=== PATIENT | female | born 1980 | race Caucasian/White ===

== ENCOUNTER 2016-04-04 08:49 | Emergency (ER) | payer MEDICAID ==
[2016-04-04] MEDS ORDERED: DEXAMETHASONE 10 MG/ML VIAL PO STA (09:27)
[2016-04-04] MEDS ORDERED: DEXAMETHASONE 10 MG/ML VIAL ONE (09:42)
[2016-04-04] MEDS ORDERED: CHERRY SYRUP 10 ML UDC PO ONE (09:43)
== END 2016-04-04 09:57 | disposition home or self-care (01) ==
DX: S76.312A Strain of muscle, fascia and tendon of the posterior muscle group at thigh level, left thigh, initial encounter (principal); X50.0XXA Overexertion from strenuous movement or load, initial encounter; Y93.E6 Activity, residential relocation; Y92.008 Other place in unspecified non-institutional (private) residence as the place of occurrence of the external cause; F17.200 Nicotine dependence, unspecified, uncomplicated; M54.31 Sciatica, right side; G89.29 Other chronic pain
CPT/HCPCS: 99283; A9270

== ENCOUNTER 2016-06-20 08:48 | Emergency (ER) | payer MEDICAID ==
[2016-06-20] MEDS ORDERED: CEPHALEXIN 250 MG CAPSULE PO STA (09:41)
[2016-06-20] MEDS ORDERED: PHENAZOPYRIDINE 100 MG TABLET PO STA (09:41)
[2016-06-20] MEDS ORDERED: CEPHALEXIN 250 MG CAPSULE PO ONE (09:52)
[2016-06-20] MEDS ORDERED: PHENAZOPYRIDINE 100 MG TABLET PO ONE (09:52)
== END 2016-06-20 10:25 | disposition home or self-care (01) ==
DX: N30.01 Acute cystitis with hematuria (principal); R03.0 Elevated blood-pressure reading, without diagnosis of hypertension; Z87.440 Personal history of urinary (tract) infections; F17.200 Nicotine dependence, unspecified, uncomplicated
CPT/HCPCS: 81001; 81025; 87077; 87086; 87181; 99283; A9270

== ENCOUNTER 2016-09-18 21:26 | Emergency (ER) | payer MEDICAID ==
[2016-09-18 22:00] LABS: BILIRUBIN,URINE NEGATIVE (NEGATIVE); PH,URINE 5.5 PH (5.0-7.5)
[2016-09-18 22:02] LABS: HCG UR QUAL NEGATIVE; UA w/ MICROSCOPIC CHARGE YES
[2016-09-18 22:09] LABS: UR CULTURE IF IND NOT INDICATED
--- NOTE | 2016-09-18 22:22 | ED Physician Documentation ---
PD HPI FEMALE - Stated complaint Stated Complaint: LT SIDE PAIN - Chief complaint Chief Complaint: General - History obtained from History obtained from: Patient - History of Present Illness Timing - onset: Enter time (15:30) Timing - duration: Hours Timing - details: Gradual onset, Constant, Waxing and waning Pain level max: 6 Associated symptoms: Abdominal pain (left flank pain radiating to back). No: Fever Similar symptoms before: Diagnosis (pyelonephritis) Recently seen: Not recently seen - Additional information Additional information: patient c/o left flank pain radiating to back, onset 3:30 PM, waxing and waning without apparent exacerbating or ameliorating factors. She feels this is similar to previous episodes of kidney infections. Review of Systems Constitutional: denies: Fever, Chills, Sweats Cardiac: reports: Reviewed and negative Respiratory: reports: Reviewed and negative GI: reports: Abdominal Pain (left flank). 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: Tubal ligation - Present Medications Home Medications: Ambulatory Orders Medication Instructions Recorded Confirmed Cephalexin [Keflex] 500 mg PO Q6H #28 capsule 06/20/16 Phenazopyridine [Pyridium] 100 mg PO Q8H PRN #9 tablet 06/20/16 Ciprofloxacin HCl [Cipro] 500 mg PO BID #13 tablet 09/18/16 - Allergies Allergies/Adverse Reactions: Allergies Allergy/AdvReac Type Severity Reaction Status Date / Time No Known Drug Allergies Allergy Verified 06/20/16 08:53 - Social History Does the pt smoke?: Yes Smoking Status: Current every day smoker Does the pt drink ETOH?: Yes Does the pt have substance abuse?: Yes Substance Use and Type: Marijuana - Immunizations Immunizations are current?: Yes PD ED PE NORMAL - Vitals Vital signs reviewed: Yes - General General: Alert and oriented X 3, Well developed/nourished, Other (appears uncomfortable) - Cardiac Cardiac: RRR, No murmur - Respiratory Respiratory: No respiratory distress, Clear bilaterally - Abdomen Abdomen: Soft, Non tender, Non distended - Back Back: Other (left CVA tenderness) - Derm Derm: Normal color, Warm and dry, No rash Results - Vitals Vitals: Vital Signs - 24 hr 09/18/16 09/18/16 21:30 22:56 Temperature 36.8 C Heart Rate 95 67 Respiratory 16 16 Rate Blood Pressure 152/101 H 116/82 H O2 Saturation 97 96 Oxygen O2 Source Room air - Labs Labs: Laboratory Tests 09/18/16 21:32 Urine Color YELLOW Urine Clarity HAZY Urine pH 5.5 Ur Specific [place] 1.020 Urine Protein NEGATIVE Urine Glucose (UA) NEGATIVE Urine Ketones NEGATIVE Urine Occult Blood SMALL H Urine Nitrite NEGATIVE Urine Bilirubin NEGATIVE Urine Urobilinogen 0.2 (NORMAL) Ur Leukocyte Esterase TRACE H Urine RBC 0-5 Urine WBC 4-5 Ur Squamous Epith Cells MOD Squamous H Urine Bacteria Rare Ur Microscopic Review INDICATED Urine Culture Comments NOT INDICATED Urine HCG, Qual NEGATIVE PD MEDICAL DECISION MAKING - ED course Complexity details: reviewed old records, reviewed results, re-evaluated patient , considered differential, d/w patient Departure - Departure Disposition: 01 Home, Self Care Clinical Impression: UTI (urinary tract infection) Qualifiers: Urinary tract infection type: acute cystitis Hematuria presence: with hematuria Qualified Code(s): N30.01 - Acute cystitis with hematuria Condition: Good Instructions: ED UTI Cystitis Female Follow-Up: [facility] [Provider Group] [facility] [Provider Group] Prescriptions: Ciprofloxacin HCl [Cipro] 500 mg PO BID #13 tablet Discharge Date/Time: 09/18/16 23:06
[2016-09-18] MEDS ORDERED: KETOROLAC 60 MG/2 ML VIAL IVP STA (22:33)
[2016-09-18] MEDS ORDERED: CIPROFLOXACIN 250 MG TABLET PO STA (22:33)
[2016-09-18] MEDS ORDERED: HYDROcod/ACET 5/325 Prepack 6 PO STA (22:34)
[2016-09-18] MEDS ORDERED: HYDROcod/ACET 5/325 Prepack 6 PO ONE (22:42)
[2016-09-18] MEDS ORDERED: KETOROLAC 30 MG/ML VIAL ONE (22:42)
[2016-09-18] MEDS ORDERED: CIPROFLOXACIN 250 MG TABLET PO ONE (22:43)
[2016-09-18 23:00] VITALS: BP 116/82
== END 2016-09-18 23:06 | disposition home or self-care (01) ==
LOC: ED 21:26
DX: N30.01 Acute cystitis with hematuria (principal); F17.200 Nicotine dependence, unspecified, uncomplicated
CPT/HCPCS: 81001; 81025; 96374; 99283; 99284; A9270; 81003; 87086

== ENCOUNTER 2017-01-07 08:56 | Emergency (ER) | payer MEDICAID ==
--- NOTE | 2017-01-07 09:23 | ED Physician Documentation ---
History of Present Illness - Stated complaint Stated Complaint: LT KNEE PX - Chief complaint Chief Complaint: Ext Problem - Additonal information Additional information: hx from pt 36 y/o f to ER with 1 week of atraumatic L knee pain and tightness radiating down calf with some atraumatic bruising and sometimes her foot is cold and discolored fhx DVT and clotting disorder no CP or SOA no abd pain hx back problems but this does not feel like sciatica to her denies preg s/p tubal Review of Systems Constitutional: denies: Fever, Chills Cardiac: denies: Chest pain / pressure Respiratory: denies: Dyspnea GI: denies: Abdominal Pain Musculoskeletal: reports: Extremity pain Neurologic: denies: Focal weakness, Numbness PD PAST MEDICAL HISTORY - Past Medical History Past Medical History: Yes Neuro: Headache/migraine : Other Musculoskeletal: Chronic back pain - Past Surgical History Past Surgical History: Yes 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 - Present Medications Home Medications: Ambulatory Orders Medication Instructions Recorded Confirmed Lidocaine Patch 5% [Lidoderm Patch] 1 each TOP DAILY PRN #10 patch 01/07/17 oxyCODONE [Roxicodone] 5 mg PO Q4-6H #8 tablet 01/07/17 predniSONE [Deltasone] 20 mg PO [id number] #21 tab 01/07/17 - Allergies Allergies/Adverse Reactions: Allergies Allergy/AdvReac Type Severity Reaction Status Date / Time No Known Drug Allergies Allergy Verified 06/20/16 08:53 - Social History Does the pt smoke?: Yes Smoking Status: Current every day smoker Does the pt drink ETOH?: Yes Does the pt have substance abuse?: Yes - Immunizations Immunizations are current?: Yes PD ED PE NORMAL - Vitals Vital signs reviewed: Yes - Cardiac Cardiac: RRR - Respiratory Respiratory: No respiratory distress - Derm Derm: Normal color - Extremities Extremities: Other (TTP popliteal region, no cord, calf TTP, strong pedal and tibialis pulse, brosk cap refill, nl sens and motor) Results - Vitals Vitals: Vital Signs - 24 hr 01/07/17 01/07/17 09:03 10:52 Temperature 36.0 C L 36.4 C L Heart Rate 96 76 Respiratory 18 22 Rate Blood Pressure 138/89 H 114/65 O2 Saturation 98 98 Oxygen O2 Source Room air - Labs Labs: Laboratory Tests 01/07/17 01/07/17 09:32 09:32 WBC 10.9 H RBC 5.55 H Hgb 16.7 H Hct 49.9 H MCV 89.8 MCH 30.1 MCHC 33.5 RDW 13.3 Plt Count 236 MPV 9.6 Neut # 7.1 H Lymph # 2.9 [place] # 0.7 Eos # 0.2 Baso # 0.1 Absolute Nucleated RBC 0.00 Nucleated RBC % 0.0 PT 12.9 H INR 1.2 - Rads (name of study) doppler Radiology: See rad report (neg) Departure - Departure Disposition: Home, Self Care Clinical Impression: Knee pain Qualifiers: Chronicity: acute Laterality: left Qualified Code(s): M25.562 - Pain in left knee Condition: Good Instructions: ED Knee Pain UKO Follow-Up: [facility] [Provider Group] Prescriptions: Lidocaine Patch 5% [Lidoderm Patch] 1 each TOP DAILY PRN #10 patch PRN Reason: Pain oxyCODONE [Roxicodone] 5 mg PO Q4-6H #8 tablet predniSONE [Deltasone] 20 mg PO [id number] #21 tab Comments: Based on the history I do not think you have a fracture Based on your exam i do not think you have an infected joint of gout And the ultrasound does not show a blood clot. I am not sure why your knee is hurting so badly I recommend we try a course of steroids to decrease inflammtion, tylenol and lidocaine patches for mild to moderate pain, and oxycodone only for very severe pain - please limit the amount of oxycodone because I do not want to mask changing symptoms and because narcotics can be addicting Please call to scheduled orthopedic follow up for a recheck and further evaluation and management if the symptoms persists - if the symptoms persists I would also recommend a repeat doppler ultrasound later this week because occasionally small clots can be hard to see on initial imaging Forms: Activity restrictions
[2017-01-07 09:40] LABS: BASOPHILS # (AUTO) 0.1 10^3/uL (0.0-0.1); BASOPHILS % (AUTO) 0.9 %; EOSINOPHILS # (AUTO) 0.2 10^3/uL (0.0-0.7); EOSINOPHILS % (AUTO) 1.5 %; HCT - HEMATOCRIT 49.9 % (37.0-47.0); HGB - HEMOGLOBIN 16.7 g/dL (12.0-16.0); LYMPHOCYTES # (AUTO) 2.9 10^3/uL (1.5-3.5); LYMPHOCYTES % (AUTO) 26.2 %; MEAN CORPUSCULAR HEMOGLOBIN 30.1 pg (27.0-31.0); MEAN CORPUSCULAR HGB CONC 33.5 g/dL (32.0-36.0); MEAN CORPUSCULAR VOLUME 89.8 fL (81.0-99.0); MEAN PLATELET VOLUME 9.6 fL (7.9-10.8); MONOCYTES # (AUTO) 0.7 10^3/uL (0.0-1.0); MONOCYTES % (AUTO) 6.5 %; NEUTROPHILS # (AUTO) 7.1 10^3/uL (1.5-6.6); NEUTROPHILS % (AUTO) 64.9 %; RED BLOOD COUNT 5.55 10^6/uL (4.20-5.40); RED CELL DISTRIBUTION WIDTH 13.3 % (12.0-15.0); UNCORRECTED WHITE BLOOD COUNT 10.9 x10^3/uL; WHITE BLOOD COUNT 10.9 x10^3/uL (4.8-10.8)
[2017-01-07 09:57] LABS: INR 1.2 (0.8-1.2); PT - PROTHROMBIN TIME 12.9 secs (9.9-12.6)
[2017-01-07] MEDS: traMADol 50 MG TABLET PO STA (10:30)
[2017-01-07] MEDS ORDERED: traMADol 50 MG TABLET PO ONE (10:33)
--- NOTE | 2017-01-07 10:39 | Ultrasound Report ---
LEFT LEG VENOUS DUPLEX: 01/07/2017 CLINICAL INDICATION: Popliteal pain. TECHNIQUE: Real-time sonographic vascular imaging was performed by the self propelled dredge operator through the left l ower extremity utilizing both color flow and Doppler spectral analysis. Multiple personal service representative stati c images were saved for review. FINDINGS: A left lower extremity venous sonogram is performed revealing the common femoral, superfici al femoral, profunda femoris, and popliteal veins to be adequately visualized without intraluminal de fects. There is normal venous compression, augmentation, phasicity, and spontaneity of venous flow. I n the calf, the visualized more cephalad portions of posterior tibial and peroneal veins are grossly compressible, without filling defects. IMPRESSION: NO EVIDENCE OF DEEP VENOUS THROMBOSIS. JOB #: [id number] EXT JOB #:[id number]
[2017-01-07 10:52] VITALS: BP 114/65
[2017-01-07] MEDS ORDERED: DEXAMETHASONE 10 MG/ML VIAL ONE (11:35)
[2017-01-07] MEDS ORDERED: oxyCODONE 5 MG TABLET ONE (11:35)
[2017-01-07] MEDS ORDERED: LIDOCAINE PATCH 5% TOP ONE (11:36)
[2017-01-07] MEDS: oxyCODONE 5 MG TABLET PO STA (11:41)
[2017-01-07] MEDS: LIDOCAINE PATCH 5% TOP STA (11:41)
[2017-01-07] MEDS: DEXAMETHASONE 10 MG/ML VIAL PO STA (11:41)
== END 2017-01-07 11:54 | disposition home or self-care (01) ==
LOC: ED 08:56
DX: M25.562 Pain in left knee (principal); F17.200 Nicotine dependence, unspecified, uncomplicated
CPT/HCPCS: 36415; 85025; 85610; 99283

== ENCOUNTER 2017-07-18 11:40 | Emergency (ER) | payer MEDICAID ==
[2017-07-18] MEDS ORDERED: DEXAMETHASONE 10 MG/ML VIAL IVP STA (13:32)
[2017-07-18] MEDS ORDERED: KETOROLAC 30 MG/ML VIAL IVP STA (13:32)
[2017-07-18] MEDS ORDERED: SODIUM CHLORIDE 0.9% 1,000 ML IV ONE (13:32)
[2017-07-18] MEDS ORDERED: diphenhydrAMINE INJ 50 MG/ML VIAL IVP STA (13:32)
[2017-07-18] MEDS ORDERED: METOCLOPRAMIDE 10 MG/2 ML VIAL IVP STA (13:32)
--- NOTE | 2017-07-18 13:36 | ED Physician Documentation ---
PD HPI HEADACHE - Stated complaint Stated Complaint: MIGRAINE/VOMITTING - Chief complaint Chief Complaint: Neuro - History obtained from History obtained from: Patient, Family - History of Present Illness Timing - onset: Today (Gradual onset headache similar to prior migraines starting this morning that worsened throughout the morning associated with vomiting and severe light sensitivity. She tried Excedrin and ibuprofen without relief. She does not have any prescription meds at home when she has this. She gets them usually monthly but has had a break lately, has not had one in a while.) Review of Systems Constitutional: denies: Fever, Chills GI: reports: Nausea, Vomiting. 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 - Present Medications Home Medications: Ambulatory Orders Medication Instructions Recorded Confirmed Lidocaine Patch 5% [Lidoderm Patch] 1 each TOP DAILY PRN #10 patch 01/07/17 oxyCODONE [Roxicodone] 5 mg PO Q4-6H #8 tablet 01/07/17 predniSONE [Deltasone] 20 mg PO [id number] #21 tab 01/07/17 Butalb/Acetaminophen/Caffeine 1 each PO Q4H PRN #10 capsule 07/18/17 [Fioricet 50-300-40 mg Capsule] Metoclopramide [Reglan] 10 mg PO Q6H PRN #20 tablet 07/18/17 Ondansetron HCl [Zofran] 4 mg PO Q6H PRN #10 tablet 07/18/17 - Allergies Allergies/Adverse Reactions: Allergies Allergy/AdvReac Type Severity Reaction Status Date / Time sumatriptan [From Imitrex] Allergy Hives Verified 07/18/17 13:46 - Social History Does the pt smoke?: Yes Smoking Status: Current every day smoker Does the pt drink ETOH?: Yes Does the pt have substance abuse?: Yes - Immunizations Immunizations are current?: Yes PD ED PE NORMAL - Vitals Vital signs reviewed: Yes - General General: Alert and oriented X 3, Other (uncomfortable, light sensitive) - HEENT HEENT: PERRL, EOMI - Neck Neck: Supple, no meningeal sign, No bony TTP - Neuro Neuro: Alert and oriented X 3, 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 Did not respond to medications at home. She was administered IV fluids, Reglan, Toradol , dexamethasone with modest relief and this was followed by Compazine and Zofran with excellent relief. Departure - Departure Disposition: 01 Home, Self Care Clinical Impression: Migraine Qualifiers: Migraine type: with aura Status migrainosus presence: with status migrainosus Intractability: intractable Qualified Code(s): G43.111 - Migraine with aura, intractable, with status migrainosus Condition: Good Record reviewed to determine appropriate education?: Yes Instructions: ED Headache Migraine Prescriptions: Butalb/Acetaminophen/Caffeine [Fioricet 50-300-40 mg Capsule] 1 each PO Q4H PRN #10 capsule PRN Reason: Headache Metoclopramide [Reglan] 10 mg PO Q6H PRN #20 tablet PRN Reason: Nausea / Vomiting Ondansetron HCl [Zofran] 4 mg PO Q6H PRN #10 tablet PRN Reason: Nausea / Vomiting Comments: Call your doctor to arrange a follow-up appointment, make the next available appointment. In the interim, return anytime if worse or if new symptoms develop. Your blood pressure was elevated today on check into the emergency department. This does not mean that you have hypertension, it is a common phenomenon to come to the emergency department and have elevated blood pressure. I recommend that you see your primary care physician within the week to have it rechecked when you are feeling better. Discharge Date/Time: 07/18/17 15:24
[2017-07-18] MEDS ORDERED: ONDANSETRON 4 MG/2 ML VIAL IVP STA (14:14)
[2017-07-18] MEDS ORDERED: PROCHLORPERAZINE 10 MG/2 ML VIAL IVP STA (14:14)
[2017-07-18 15:17] VITALS: BP 106/69
== END 2017-07-18 15:24 | disposition home or self-care (01) ==
LOC: ED 11:40
DX: G43.111 Migraine with aura, intractable, with status migrainosus (principal); F17.200 Nicotine dependence, unspecified, uncomplicated
CPT/HCPCS: 96361; 96374; 96375; 99283; 99284; J1200; J2765

== ENCOUNTER 2018-07-26 21:15 | Emergency (ER) | payer MEDICAID ==
[2018-07-26] MEDS ORDERED: SODIUM CHLORIDE 0.9% 1,000 ML IV ONE (21:28)
[2018-07-26] MEDS ORDERED: DEXAMETHASONE 10 MG/ML VIAL IVP STA (21:28)
[2018-07-26] MEDS ORDERED: diphenhydrAMINE INJ 50 MG/ML VIAL IVP STA (21:28)
[2018-07-26] MEDS ORDERED: PROCHLORPERAZINE 10 MG/2 ML VIAL IVP STA (21:28)
[2018-07-26] MEDS ORDERED: KETOROLAC 30 MG/ML VIAL IVP STA (21:28)
--- NOTE | 2018-07-26 21:30 | ED Physician Documentation ---
PD HPI HEADACHE - Stated complaint Stated Complaint: HEADACHE - Chief complaint Chief Complaint: Neuro - History obtained from History obtained from: Patient - History of Present Illness Timing - onset: Today (Gradual onset global headache associated with photo and phonophobia today and vomiting similar to prior migraines. She gets migraines very infrequently. No fevers or recent travel. 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: Tubal ligation - Present Medications Home Medications: Ambulatory Orders Medication Instructions Recorded Confirmed No Known Home Medications 07/26/18 07/26/18 - Allergies Allergies/Adverse Reactions: Allergies Allergy/AdvReac Type Severity Reaction Status Date / Time sumatriptan [From Imitrex] Allergy Hives Verified 07/26/18 21:23 - Social History Does the pt smoke?: Yes Smoking Status: Current every day smoker Does the pt drink ETOH?: Yes Does the pt have substance abuse?: Yes - Immunizations Immunizations are current?: Yes PD ED PE NORMAL - Vitals Vital signs reviewed: Yes - General General: Alert and oriented X 3, No acute distress - HEENT HEENT: PERRL (Photophobic) - Neck Neck: Supple, no meningeal sign, No bony TTP - Neuro Neuro: Alert and oriented X 3, 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 As such I doubt subarachnoid hemorrhage. There are no infectious symptoms such as fever or stiff neck to make me suspect meningitis. No carbon monoxide exposure by history. Initial treatment was with IV fluids, Toradol, Compazine, Benadryl, and dexam ethasone. She had not much relief with this, but after the subsequent administration of metoclopramide IV her headache was much better and she requested discharge. Departure - Departure Disposition: 01 Home, Self Care Clinical Impression: Migraine Qualifiers: Migraine type: without aura Status migrainosus presence: with status migrainosus Intractability: not intractable Qualified Code(s): G43.001 - Migr alejandra without aura, not intractable, with status migrainosus Condition: Good Record reviewed to determine appropriate education?: Yes Instructions: ED Headache Migraine Comments: RETURN IF WORSE OR NOT BETTER. FOLLOWUP WITH YOUR PHYSICIAN
[2018-07-26] MEDS ORDERED: METOCLOPRAMIDE 10 MG/2 ML VIAL IVP STA (22:04)
[2018-07-26 22:48] VITALS: BP 123/68
== END 2018-07-26 22:48 | disposition home or self-care (01) ==
LOC: ED 21:15
DX: G43.001 Migraine without aura, not intractable, with status migrainosus (principal); F17.200 Nicotine dependence, unspecified, uncomplicated
CPT/HCPCS: 96374; 96375; 99283; 99284; J1200; J2765

== ENCOUNTER 2018-10-12 22:23 | Emergency (ER) | payer MEDICAID ==
--- NOTE | 2018-10-12 23:42 | ED Physician Documentation ---
PD HPI LOWER EXT INJURY - Stated complaint Stated Complaint: L KNEE PAIN - Chief complaint Chief Complaint: Trauma Ext - History obtained from History obtained from: Patient - History of Present Illness PD HPI LOW EXT INJURY LOCATION: Left, Knee Type of injury: Fall Where injury occurred: [place] Timing - onset: Enter time (20:00), Today Timing - details: Abrupt onset Pain level now: 6 Improved by: Rest, Immobilization Worsened by: Moving, Palpating Associated symptoms: Swelling, Discolored. No: Weakness, Numbness Similar symptoms before: Has not had sx before Recently seen: Not recently seen - Additional information Additional information: Patient complains of left knee pain, sudden onset when she [place] at a local [place] at 8 PM tonight. Patient was loading rabbits into the back of her vehicle when she stepped into a hole in the ground, causing her fall. She initially was able to bear weight, but she has experienced subsequent increasing pain and swelling of the left knee and is no longer able to bear weight. Review of Systems Skin: reports: Reviewed and negative Musculoskeletal: reports: Joint pain, Joint swelling, Pain with weight bearing. 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: Yes Smoking Status: Current every day smoker Does the pt drink ETOH?: Yes Does the pt have substance abuse?: Yes - Immunizations Immunizations are current?: Yes - POLST Patient has POLST: No PD ED PE NORMAL - Vitals Vital signs reviewed: Yes - General General: Alert and oriented X 3, No acute distress, Well developed/nourished - Neuro Neuro: No motor deficit, No sensory deficit PD ED PE EXPANDED - Extremities Extremities: Tenderness, Limited ROM, Swelling, Bruising, Left knee, Pedal Pulses Present. No: Pedal edema L Results - Vitals Vitals: Oxygen O2 Source Room air - Rads (name of study) left knee xrays Radiology: Prelim report reviewed, See rad report PD MEDICAL DECISION MAKING - ED course Complexity details: reviewed results, re-evaluated patient, considered differential, d/w patient Departure - Departure Disposition: 01 Home, Self Care Clinical Impression: Left knee sprain Condition: Good Instructions: ED Meniscal Injury Knee Poss, ED Immobilizer Knee, ED Sprain Knee, ED Walker Use Follow-Up: Anjel Doshi MD [Provider Admit Priv/Credential] - Within 3 Days Prescriptions: Oxycodone HCl/Acetaminophen [Percocet 5-325 mg Tablet] 1 - 2 each PO Q6H PRN #20 tablet PRN Reason: pain Discharge Date/Time: 10/13/18 00:46
[2018-10-13] MEDS ORDERED: oxyCODONE/ACET 5/325 Prepack 4 PO STA (00:06)
--- NOTE | 2018-10-13 00:13 | XRAY Report ---
Reason: Fall/injury Procedure Date: 10/12/2018 Accession Number: [id number] / [id number] Procedure: XR - Knee 4 View LT CPT Code: FULL RESULT: EXAM: LEFT KNEE RADIOGRAPHY EXAM DATE: 10/12/2018 11:20 PM. CLINICAL HISTORY: Fall/injury. COMPARISON: None. TECHNIQUE: 4 views. FINDINGS: Bones: No acute displaced fractures or suspicious bony lesion. Joints: No dislocation. Soft Tissues: There is moderate prepatellar soft tissue swelling. IMPRESSION: No acute osseous abnormality demonstrated. Moderate prepatellar soft tissue swelling. RADIA
[2018-10-13 00:20] VITALS: BP 131/90
== END 2018-10-13 00:46 | disposition home or self-care (01) ==
LOC: ED 22:23
DX: S83.92XA Sprain of unspecified site of left knee, initial encounter (principal); W17.2XXA Fall into hole, initial encounter; Y93.89 Activity, other specified; Y92.830 Public park as the place of occurrence of the external cause; F17.200 Nicotine dependence, unspecified, uncomplicated
CPT/HCPCS: 99283

== ENCOUNTER 2018-11-08 18:42 | Emergency (ER) | payer MEDICAID ==
--- NOTE | 2018-11-08 20:09 | ED Physician Documentation ---
PD HPI HEADACHE - Stated complaint Stated Complaint: HEADACHE/VOMITING - Chief complaint Chief Complaint: General - History obtained from History obtained from: Patient - History of Present Illness Timing - onset: Enter time (15:00), Today Timing - details: Gradual onset Pain level now: 9 Worst headache ever?: No: Worst headache ever? Location: Global Quality: Throbbing Associated symptoms: Nausea, Vomiting. No: Fever, Stiff neck, Weakness, Numbness Improved by: Rest, Dark room, Quiet Worsened by: Light, Noise Similar symptoms before: Diagnosis (similar to previous migraine headaches) Recently seen: Emergency Dept (recent ED visits for knee pain, migraines) Review of Systems Eyes: reports: Photophobia. denies: Loss of vision, Decreased vision Cardiac: reports: Reviewed and negative Respiratory: reports: Reviewed and negative GI: reports: Nausea, Vomiting. denies: Abdominal Pain Musculoskeletal: denies: Neck pain Neurologic: reports: Headache. 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: Tubal ligation - Present Medications Home Medications: Ambulatory Orders Medication Instructions Recorded Confirmed Cyclobenzaprine [Flexeril] 1 tab PO DAILY PRN 11/08/18 11/08/18 Ketorolac [Toradol] 10 mg PO Q6H PRN #20 tablet 11/08/18 Metoclopramide [Reglan] 10 mg PO Q6H PRN #14 tablet 11/08/18 - Allergies Allergies/Adverse Reactions: Allergies Allergy/AdvReac Type Severity Reaction Status Date / Time sumatriptan [From Imitrex] Allergy Hives Verified 11/08/18 18:50 - Social History Does the pt smoke?: Yes Smoking Status: Current every day smoker Does the pt drink ETOH?: Yes Does the pt have substance abuse?: Yes - Immunizations Immunizations are current?: Yes - POLST Patient has POLST: No PD ED PE NORMAL - Vitals Vital signs reviewed: Yes - General General: Alert and oriented X 3, Well developed/nourished, Other (wearing sunglasses in dark room. 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, No motor deficit, No sensory deficit, Normal speech Eye Opening: Spontaneous Motor: Obeys Commands Verbal: Oriented GCS Score: 15 Results - Vitals Vitals: Vital Signs - 24 hr 11/08/18 11/08/18 11/08/18 18:48 20:54 21:34 Temperature 35.8 C L 36.6 C Heart Rate 90 76 77 Respiratory 19 15 16 Rate Blood Pressure 145/89 H 103/70 105/68 O2 Saturation 99 99 99 Oxygen O2 Source Room air PD MEDICAL DECISION MAKING - ED course Complexity details: reviewed old records, re-evaluated patient, considered differential, d/w patient ED course: asked what she takes at home for migraines, she tells me she only takes tylenol. She says "to get medicine, you have to see a doctor", and she tells me she does not see doctors despite having insurance. Recently saw outpatient doctor "just to get a referral for my knee", but "probably won't be going back to them". On reevaluation, after IV fluids, reglan, toradol, and benadryl, patient reports significant improvement and is comfortable with d/c home Departure - Departure Disposition: 01 Home, Self Care Clinical Impression: Migraine Qualifiers: Migraine type: unspecified Status migrainosus presence: without status migrainosus Intractability: not intractable Qualified Code(s): G43.909 - Ma graine, unspecified, not intractable, without status migrainosus Condition: Good Instructions: ED Headache Migraine Follow-Up: FRANCESCA CAMARA ARNP [Primary Care Provider] - Prescriptions: Ketorolac [Toradol] 10 mg PO Q6H PRN #20 tablet PRN Reason: Headache Metoclopramide [Reglan] 10 mg PO Q6H PRN #14 tablet PRN Reason: Nausea / Vomiting Discharge Date/Time: 11/08/18 21:35
[2018-11-08] MEDS ORDERED: SODIUM CHLORIDE 0.9% 1,000 ML IV STA (20:20)
[2018-11-08] MEDS ORDERED: METOCLOPRAMIDE 10 MG/2 ML VIAL IVP STA (20:20)
[2018-11-08] MEDS ORDERED: KETOROLAC 30 MG/ML VIAL IVP STA (20:20)
[2018-11-08] MEDS ORDERED: diphenhydrAMINE INJ 50 MG/ML VIAL IVP STA (20:20)
[2018-11-08 21:35] VITALS: BP 105/68
== END 2018-11-08 21:35 | disposition home or self-care (01) ==
LOC: ED 18:42
DX: G43.909 Migraine, unspecified, not intractable, without status migrainosus (principal); F17.200 Nicotine dependence, unspecified, uncomplicated
CPT/HCPCS: 96361; 96374; 96375; 99283; 99284; J1200; J2765

== ENCOUNTER 2018-11-16 11:15 | Emergency (ER) | payer MEDICAID ==
[2018-11-16] MEDS ORDERED: CHERRY SYRUP 10 ML UDC PO ONE (11:44)
[2018-11-16] MEDS ORDERED: DEXAMETHASONE 10 MG/ML VIAL PO STA (11:44)
[2018-11-16] MEDS ORDERED: KETOROLAC 60 MG/2 ML VIAL IM STA (11:44)
--- NOTE | 2018-11-16 11:46 | ED Physician Documentation ---
PD HPI BACK PAIN - Stated complaint Stated Complaint: BACK PAIN - Chief complaint Chief Complaint: Back Pain - History obtained from History obtained from: Patient - History of Present Illness Timing - onset: How many days ago (3) Timing - duration: Days (2) Timing - details: Still present Location: Lower, Right Quality: Pain, Sharp Worsened by: Movement, Palpation Contributing factors: Other (Fell 3 days ago.) Similar symptoms before: No diagnosis (History of recurrent low back pain) - Additional information Additional information: The patient is a 37-year-old female who presents with low back pain radiating to her right leg. She fell 2 days ago and has had increased pain since that time. She describes it as a sharp pain radiating down the right leg. She reports decreased sensation in her right lower extremity. She denies fever or urinary incontinence. She reports history of similar back pain intermittently in the past, but it is never been this sharp, described as being "like electricity." Review of Systems Constitutional: denies: Fever Nose: denies: Congestion Cardiac: denies: Chest pain / pressure Respiratory: denies: Dyspnea, Cough GI: denies: Abdominal Pain, Nausea, Vomiting : denies: Dysuria, Incontinent Skin: denies: Rash Musculoskeletal: reports: Back pain, Extremity pain (right leg). denies: Neck pain Neurologic: reports: Numbness (right leg). denies: Focal weakness, Headache, Head injury PD PAST MEDICAL HISTORY - Past Medical History Cardiovascular: None Respiratory: None Neuro: Migraines Endocrine/Autoimmune: None GI: None HAND SLITTER: None : Other HEENT: None Psych: None Musculoskeletal: Chronic back pain Derm: None - Past Surgical History Past Surgical History: Yes General: Appendectomy /HAND SLITTER: Tubal ligation - Present Medications Home Medications: Ambulatory Orders Medication Instructions Recorded Confirmed Cyclobenzaprine [Flexeril] 10 mg PO TID PRN #20 tablet 11/16/18 Hydrocodone/Acetaminophen 1 - 2 each PO Q6H PRN #20 tablet 11/16/18 [Hydrocodon-Acetaminophen 5-325] - Allergies Allergies/Adverse Reactions: Allergies Allergy/AdvReac Type Severity Reaction Status Date / Time sumatriptan [From Imitrex] Allergy Hives Verified 11/16/18 11:21 - Social History Does the pt smoke?: Yes Smoking Status: Current every day smoker Does the pt drink ETOH?: Yes Does the pt have substance abuse?: Yes - Immunizations Immunizations are current?: Yes - POLST Patient has POLST: No PD ED PE NORMAL - Vitals Vital signs reviewed: Yes (Borderline hypertension initially.) - General General: Alert and oriented X 3, Well developed/nourished, Other (Obese.) - HEENT HEENT: Atraumatic, EOMI - Neck Neck: No bony TTP - Cardiac Cardiac: RRR - Respiratory Respiratory: No respiratory distress, Clear bilaterally - Abdomen Abdomen: Soft, Non tender - Back Back: No CVA TTP, No spinal TTP, Other (There is tenderness to palpation in the right sacroiliac region and inferior pubic ramus region.) - Derm Derm: No rash - Extremities Extremities: No edema, No calf tenderness / cord, Other (Straight leg raise test is negative bilaterally.) - Neuro Neuro: Alert and oriented X 3, No motor deficit, No sensory deficit, Other (No sensory deficit is detected in the right lower extremity.) Results - Vitals Vitals: Vital Signs - 24 hr 11/16/18 11/16/18 11:18 13:31 Temperature 36.3 C L Heart Rate 95 71 Respiratory 18 14 Rate Blood Pressure 133/100 H 117/68 O2 Saturation 100 98 Oxygen O2 Source Room air - Rads (name of study) Pelvic xray Radiology: Prelim report reviewed, EMP read contemporaneously, See rad report (No acute fracture or dislocation. Lower lumbar degenerative disc disease.) PD MEDICAL DECISION MAKING - ED course Complexity details: reviewed old records, reviewed results, re-evaluated patient, considered differential, d/w patient, d/w family ED course: The patient's presentation is most consistent with lumbar contusion with radiculopathy. There is no evidence of pelvic fracture on x-ray examination. Treatment in the emergency department included administration of ketorolac 60 mg IM, morphine 4 mg IM, and dexamethasone 10 mg orally. This provided mild improvement in her discomfort. She is being discharged with prescriptions for Flexeril and for Vicodin, 20 tablets. I discussed with her the expected course of injury, symptomatic treatment and outpatient follow-up, as well as potentially worrisome signs or symptoms that should prompt reevaluation in the emergency department. Departure - Departure Disposition: 01 Home, Self Care Clinical Impression: Back pain Qualifiers: Back pain location: low back pain Chronicity: acute Back pain laterality: right Sciatica presence: with sciatica Sciatica laterality: sciatica of right side Qualified Code(s): M54.41 - Lumbago with sciatica, right side Condition: Stable Instructions: ED Low Back Pain Injury Follow-Up: FRANCESCA CAMARA ARNP [Primary Care Provider] - Prescriptions: Cyclobenzaprine [Flexeril] 10 mg PO TID PRN #20 tablet PRN Reason: Spasms Hydrocodone/Acetaminophen [Hydrocodon-Acetaminophen 5-325] 1 - 2 each PO Q6H PRN #20 tablet PRN Reason: pain Comments: Apply ice pack to your lower back intermittently for the next 3 or 4 days. You can use ibuprofen, up to 800 mg 3 times daily for anti-inflammatory effect. You can use Flexeril as prescribed if needed for muscle spasms. You can use Vicodin as prescribed if needed for pain. Let pain be your guide to activity level. Follow-up with your primary physician within 2 weeks. Call to schedule an appoi ntment. Return to the emergency department if you develop increasing pain, increasing numbness or weakness, or otherwise worsening symptoms. Discharge Date/Time: 11/16/18 13:38
[2018-11-16] MEDS ORDERED: MORPHINE 2 MG/ML CARPUJECT IVP STA (13:05)
[2018-11-16] MEDS ORDERED: MORPHINE 2 MG/ML CARPUJECT IM STA (13:09)
--- NOTE | 2018-11-16 13:10 | XRAY Report ---
Reason: Fall with right pelvic pain Procedure Date: 11/16/2018 Accession Number: [id number] / [id number] Procedure: XR - Pelvis 3 View CPT Code: FULL RESULT: EXAM: PELVIS RADIOGRAPHY EXAM DATE: 11/16/2018 12:52 PM. CLINICAL HISTORY: Right pelvic pain status post fall. COMPARISON: None. TECHNIQUE: 1 view. FINDINGS: Bones: Normal. No fracture or bone lesion. Joints: The visualized hip, pubis symphysis, and sacroiliac joints are preserved. No subluxation. Mild to moderate lower lumbar degenerative disk disease present, particularly at L4-L5. Soft Tissues: Normal. No soft tissue swelling. IMPRESSION: 1. No acute fracture or dislocation. 2. Lower lumbar degenerative disk disease. RADIA
[2018-11-16 13:32] VITALS: BP 117/68
== END 2018-11-16 13:38 | disposition home or self-care (01) ==
LOC: ED 11:15
DX: M51.16 Intervertebral disc disorders with radiculopathy, lumbar region (principal); F17.200 Nicotine dependence, unspecified, uncomplicated
CPT/HCPCS: 72190; 96372; 99283; 99284

== ENCOUNTER 2019-03-08 09:29 | Emergency (ER) | payer MEDICAID ==
[2019-03-08 09:42] VITALS: BP 142/99
[2019-03-08] MEDS ORDERED: DEXAMETHASONE 10 MG/ML VIAL PO STA (10:47)
[2019-03-08] MEDS ORDERED: KETOROLAC 60 MG/2 ML VIAL IM STA (10:47)
[2019-03-08] MEDS ORDERED: CHERRY SYRUP 10 ML UDC PO ONE (10:47)
--- NOTE | 2019-03-08 10:51 | ED Physician Documentation ---
PD HPI LOWER EXT INJURY - Stated complaint Stated Complaint: LT KNEE PX - Chief complaint Chief Complaint: Ext Problem - History obtained from History obtained from: Patient, Family - History of Present Illness PD HPI LOW EXT INJURY LOCATION: Left, Knee Type of injury: Other (over use) Where injury occurred: Home Timing - onset: How many days ago (3) Timing - duration: Days (3) Timing - details: Gradual onset, Still present Improved by: Rest, Ice, Immobilization Worsened by: Moving, Palpating Associated symptoms: Swelling Contributing factors: No: Anticoagulated Similar symptoms before: Diagnosis (MCL and ACL tear) Recently seen: Not recently seen - Additional information Additional information: 38-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 She has noted 3 days ago that her knee started to ache and then has become extremely painful when she got out of bed this morning she was unable to bear weight secondary to severe pain. She denies any fever. She does note some swelling to her knee. She has had prior injury to the knee in September of this year and has seen orthopedics in follow-up. She did not return for an MRI of her knee. She states that she was doing better and was not requiring the use of her knee immobilizer. She was on a short knee immobilizer because of a family history of clot related to long-leg knee immobil izer. 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 : Other HEENT: None Psych: None Musculoskeletal: Chronic back pain Derm: None - Past Surgical History Past Surgical History: Yes General: Appendectomy /COMPUTERIZED TABLE CUTTER: Tubal ligation - Present Medications Home Medications: Ambulatory Orders Medication Instructions Recorded Confirmed Hydrocodone/Acetaminophen 1 - 2 each PO Q6H PRN #14 tablet 03/08/19 [Hydrocodon-Acetaminophen 5-325] - Allergies Allergies/Adverse Reactions: Allergies Allergy/AdvReac Type Severity Reaction Status Date / Time sumatriptan [From Imitrex] Allergy Hives Verified 03/08/19 09:42 - Social History Does the pt smoke?: Yes Smoking Status: Current every day smoker Does the pt drink ETOH?: Yes Does the pt have substance abuse?: Yes - Immunizations Immunizations are current?: Yes - POLST Patient has POLST: No PD ED PE NORMAL - Vitals Vital signs reviewed: Yes (afebrile, hypertensive ) - General General: Alert and oriented X 3, No acute distress, Well developed/nourished - HEENT HEENT: Atraumatic, PERRL, EOMI - Respiratory Respiratory: No respiratory distress - Derm Derm: Normal color, Warm and dry, No rash - Extremities Extremities: Other (There is swelling and tenderness to the left knee with an effusion present. There is no overlying erythema and no warmth to the joint. There is fair ROM with pain and distal n/v are intact. There is ligamentous laxity to the LCL and the MCL on the left and this is present similarlly on the right to a lessor degree. ) - Neuro Neuro: Alert and oriented X 3, open end spinning operator 2-12 intact, No motor deficit, No sensory deficit, Normal speech Eye Opening: Spontaneous Motor: Obeys Commands Verbal: Oriented GCS Score: 15 - Psych Psych: Normal mood, Normal affect Results - Vitals Vitals: Vital Signs - 24 hr 03/08/19 09:41 Temperature 36.7 C Heart Rate 74 Respiratory 18 Rate Blood Pressure 142/99 H O2 Saturation 99 Oxygen O2 Source Room air PD MEDICAL DECISION MAKING - ED course Complexity details: reviewed old records, considered differential, d/w patient, d/w family ED course: 38-year-old female with a prior knee injury has overused her knee and now has severe pain and a joint effusion. She is given a dose of dexamethasone and we will place her back on her knee immobilizer. She is also given a dose of Toradol for pain control here and we will give her a short course of pain medication. Departure - Departure Disposition: 01 Home, Self Care Clinical Impression: Effusion of left knee joint Condition: Stable Instructions: ED Effusion Knee Follow-Up: [place] [facility] [Provider Group] Prescriptions: Hydrocodone/Acetaminophen [Hydrocodon-Acetaminophen 5-325] 1 - 2 each PO Q6H PRN #14 tablet PRN Reason: pain
== END 2019-03-08 11:11 | disposition home or self-care (01) ==
LOC: ED 09:29
DX: M25.562 Pain in left knee (principal); M25.462 Effusion, left knee; Z87.828 Personal history of other (healed) physical injury and trauma; F17.200 Nicotine dependence, unspecified, uncomplicated
CPT/HCPCS: 96372; 99283; 99284; A9270

== ENCOUNTER 2019-03-11 07:50 | Emergency (ER) | payer MEDICAID ==
--- NOTE | 2019-03-11 08:08 | ED Physician Documentation ---
PD HPI HEADACHE - Stated complaint Stated Complaint: MIGRAINE - Chief complaint Chief Complaint: General - History obtained from History obtained from: Patient - History of Present Illness Timing - onset: Last night Timing - onset during: Light activity Timing - details: Abrupt onset, Still present Worst headache ever?: No: Worst headache ever? (similar to prior migraines) Location: Global Quality: Throbbing, Aching Associated symptoms: Nausea, Vomiting, Other (some diarrhea overnight as well.). No: Fever, Stiff neck Improved by: Dark room. No: Meds Worsened by: Light Contributing factors: Other (had knee pain recently and Rx pain meds for it.). No: Anticoagulated, Recent illness, Trauma Similar symptoms before: Diagnosis (intermittent migraines about every 3-4 months.) Review of Systems Constitutional: denies: Fever, Chills Nose: denies: Rhinorrhea / runny nose, Congestion Throat: denies: Sore throat Respiratory: denies: Cough GI: reports: Nausea, Vomiting, Diarrhea (overnight). denies: Abdominal Pain Musculoskeletal: reports: Extremity pain (knee pain for several days) Neurologic: reports: Headache. 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 : Other HEENT: None Psych: None Musculoskeletal: Chronic back pain Derm: None - Past Surgical History Past Surgical History: Yes General: Appendectomy /ASSURANCE ANALYST: Tubal ligation - Present Medications Home Medications: Ambulatory Orders Medication Instructions Recorded Confirmed Hydrocodone/Acetaminophen 1 - 2 each PO Q6H PRN #14 tablet 03/08/19 [Hydrocodon-Acetaminophen 5-325] Butalb/Acetaminophen/Caffeine 1 each PO DAILY PRN #6 capsule 03/11/19 [Fioricet 50-300-40 mg Capsule] - Allergies Allergies/Adverse Reactions: Allergies Allergy/AdvReac Type Severity Reaction Status Date / Time sumatriptan [From Imitrex] Allergy Hives Verified 03/11/19 07:56 - Social History Does the pt smoke?: Yes Smoking Status: Current every day smoker Does the pt drink ETOH?: Yes Does the pt have substance abuse?: Yes - Immunizations Immunizations are current?: Yes - POLST Patient has POLST: No PD ED PE NORMAL - Vitals Vital signs reviewed: Yes - General General: Alert and oriented X 3, Well developed/nourished, Other (appears u ncomfortable) - HEENT HEENT: Moist mucous membranes, Pharynx benign - Neck Neck: Supple, no meningeal sign, No adenopathy - Cardiac Cardiac: RRR, No murmur - Respiratory Respiratory: Clear bilaterally - Abdomen Abdomen: Soft, Non tender - Derm Derm: Normal color, Warm and dry - Neuro Neuro: Alert and oriented X 3, funeral location manager 2-12 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 It sounds like a migraine headache though with the addition of some diarrhea overnight. May have a bit of a viral illness as well.), considered differential, d/w patient Departure - Departure Disposition: 01 Home, Self Care Clinical Impression: Acute diarrhea Migraine headache Qualifiers: Migraine type: without aura Status migrainosus presence: without status migrainosus Intractability: not intractable Qualified Code(s): G43.009 - Migraine without aura, not intractable, without status migrainosus Condition: Stable Record reviewed to determine appropriate education?: Yes Prescriptions: Butalb/Acetaminophen/Caffeine [Fioricet 50-300-40 mg Capsule] 1 each PO DAILY PRN #6 capsule PRN Reason: Headache Comments: Stay well-hydrated. I would presume the diarrhea will taper down and may be a viral or food related and most commonly will be a day or 2. Hopefully the migraine headache will stay away for a while again. For subsequent migraines, you could try the nausea medicine combined with Fioricet and see if that will relieve it early in its course. Return to the ER as needed. Discharge Date/Time: 03/11/19 09:34
[2019-03-11] MEDS ORDERED: SODIUM CHLORIDE 0.9% 1,000 ML IV ONE (08:20)
[2019-03-11] MEDS ORDERED: diphenhydrAMINE INJ 50 MG/ML VIAL IVP STA (08:20)
[2019-03-11] MEDS ORDERED: KETOROLAC 30 MG/ML VIAL IVP STA (08:20)
[2019-03-11] MEDS ORDERED: METOCLOPRAMIDE 10 MG/2 ML VIAL IVP STA (08:20)
[2019-03-11] MEDS ORDERED: DEXAMETHASONE 10 MG/ML VIAL IVP STA (08:21)
[2019-03-11] MEDS ORDERED: DIPHENOX/ATROPINE 2.5/0.025 MG TABLET PO STA (08:21)
[2019-03-11 09:34] VITALS: BP 120/67
== END 2019-03-11 09:34 | disposition home or self-care (01) ==
LOC: ED 07:50
DX: G43.009 Migraine without aura, not intractable, without status migrainosus (principal); R19.7 Diarrhea, unspecified; F17.200 Nicotine dependence, unspecified, uncomplicated
CPT/HCPCS: 96361; 96374; 96375; 99284; 99285; A9270; J1200; J2765

== ENCOUNTER 2020-06-28 19:14 | Emergency (ER) | payer OTHER, MEDICAID ==
[2020-06-28] MEDS ORDERED: ONDANSETRON ODT 4 MG TABLET TL STA (19:48)
[2020-06-28] MEDS ORDERED: ACETAMINOPHEN 325 MG TABLET PO STA (19:48)
[2020-06-28] MEDS ORDERED: METOCLOPRAMIDE 10 MG TABLET PO STA (20:26)
[2020-06-28] MEDS ORDERED: KETOROLAC 30 MG/ML VIAL IM STA (21:40)
--- NOTE | 2020-06-28 22:20 | CT Report ---
PROCEDURE: HEAD WO INDICATIONS: headache s/p HT 1330 today TECHNIQUE: Noncontrast 4.5 mm thick angled axial sections acquired from the foramen magnum to the vertex. For r adiation dose reduction, the following was used: automated exposure control, adjustment of mA and/or kV according to patient size. COMPARISON: None. FINDINGS: Image quality: Excellent. CSF spaces: Basal cisterns are patent. No extra-axial fluid collections. Ventricles are normal in size and shape. Brain: No midline shift. No intracranial masses or hemorrhage. Mari-white matter interface is norm al. Skull and face: Calvarium and visualized facial bones are intact, without suspicious lesions. Sinuses: Visualized sinuses and mastoids are clear. IMPRESSION: No acute intracranial abnormality. Reviewed by: Brandon Muro on 06/28/2020 10:19 PM PDT Approved by: Brandon Muro on 06/28/2020 10:19 PM PDT Station ID: [id number]
--- NOTE | 2020-06-28 22:23 | CT Report ---
PROCEDURE: CERVICAL SPINE WO INDICATIONS: neck pain s/p fall TECHNIQUE: Noncontrast 3 mm thick sections acquired from the skull base to the T4 level. Sagittal and coronal r eformats were then constructed. For radiation dose reduction, the following was used: automated exp osure control, adjustment of mA and/or kV according to patient size. COMPARISON: None. FINDINGS: Image quality: Excellent. Bones: No fractures or dislocations. Visualized superior ribs are intact. Soft tissues: Prevertebral soft tissues are normal in thickness. No paravertebral hematomas. No ap ical pneumothoraces. IMPRESSION: No acute abnormality of the cervical spine. Reviewed by: Brandon Muro on 06/28/2020 10:22 PM PDT Approved by: Brandon Muro on 06/28/2020 10:22 PM PDT Station ID: [id number]
--- NOTE | 2020-06-28 22:25 | XRAY Report ---
PROCEDURE: Ankle 3 View LT INDICATIONS: ankle pain, swelling TECHNIQUE: 3 views of the ankle were acquired. COMPARISON: None FINDINGS: Bones: No fractures or dislocations. Ankle mortise is normally aligned. No suspicious bony lesions . Soft tissues: No tibiotalar joint effusion. Achilles tendon appears normal. IMPRESSION: Normal left ankle Reviewed by: Brandon Muro on 06/28/2020 10:24 PM PDT Approved by: Brandon Muro on 06/28/2020 10:24 PM PDT Station ID: [id number]
--- NOTE | 2020-06-28 22:57 | ED Physician Documentation ---
History of Present Illness - Stated complaint Stated Complaint: FELL OUT OF VAN/NAUSEA/HEAD PX - Chief complaint Chief Complaint: Trauma Hd/Nk - History obtained from History obtained from: Patient - Additonal information Additional information: 39-year-old woman presents with left ankle pain after twisting it when she fell out of the van today around 1:30 PM. She also states that she hit her head and neck on the side of the van. Endorses progressive worsening moderate severity pain since that time. She is unable to weight-bear. no other injuries. Review of Systems Skin: denies: Lesions, Abrasion (s), Laceration (s) Musculoskeletal: reports: Neck pain, Extremity pain Neurologic: reports: Head injury. 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 : Other HEENT: None Psych: None Musculoskeletal: Chronic back pain Derm: None - Past Surgical History Past Surgical History: Yes General: Appendectomy /MARINE ANIMAL TRAINER: Tubal ligation - Present Medications Home Medications: Ambulatory Orders Medication Instructions Recorded Confirmed Ibuprofen [Motrin] 600 mg PO Q6H PRN #30 tab 06/28/20 - Allergies Allergies/Adverse Reactions: Allergies Allergy/AdvReac Type Severity Reaction Status Date / Time sumatriptan [From Imitrex] Allergy Hives Verified 06/28/20 19:19 - Social History Does the pt smoke?: Yes Smoking Status: Current every day smoker Does the pt drink ETOH?: Yes Does the pt have substance abuse?: Yes - Immunizations Immunizations are current?: Yes - POLST Patient has POLST: No PD ED PE NORMAL - Vitals Vital signs reviewed: Yes - General General: Alert and oriented X 3, No acute distress, Well developed/nourished - HEENT HEENT: Atraumatic, Other (patient in c collar. cervical spine midline discomfort to palpation) - Neck Neck: Other (+discomfort in cervical spine) - Cardiac Cardiac: RRR - Extremities Extremities: Other (L medial and lateral malleolus ttp. tender with rom of ankle. mild swelling to ankle) Results - Vitals Vitals: Vital Signs - 24 hr 06/28/20 06/28/20 19:21 22:03 Temperature 36.6 C 37.0 C Heart Rate 86 60 Respiratory 18 20 Rate Blood Pressure 141/104 H 115/77 O2 Saturation 97 96 Oxygen O2 Source Room air PD MEDICAL DECISION MAKING - ED course ED course: 39-year-old woman presents with head injury after falling out of a van today. She also has left ankle pain and swelling after twisting it. CT and x-rays without any acute findings. Will place splint, crutches, have her follow-up with orthopedics. Strict return precautions given. Departure - Departure Disposition: Home, Self Care Clinical Impression: Neck pain, Ankle pain, left Condition: Good Instructions: ED RICE Follow-Up: Samson Madison MD [Provider Admit Priv/Credential] - Prescriptions: Ibuprofen [Motrin] 600 mg PO Q6H PRN #30 tab PRN Reason: Pain Comments: You are seen in the emergency department for left ankle pain. Your x-ray did not show a break in the bone so you likely have a sprain. Please follow-up with orthopedics in 1 week if you do not have improvement in your pain. You also were seen for head injury and neck pain and your CT of your head and cervical spine were normal. Forms: Activity restrictions
[2020-06-28 23:22] VITALS: BP 143/105
--- OUTSIDE RECORDS SUMMARY | 2020-06-29 03:26 | EXTERNAL MEDICAL SUMMARY RPT | Continuity of Care Document ---
:1980 Demographics Phone Unavailable Preferred Language Unknown Marital Status Unknown Orthodoxy Affiliation Unknown Race Unknown Ethnic Group Unknown Author Organization [place] Address [address] [id number] Phone Social History date description facility [phone]
--- OUTSIDE RECORDS SUMMARY | 2020-06-29 03:27 | EXTERNAL MEDICAL SUMMARY RPT | Continuity of Care Document ---
:1980 Demographics Phone Unavailable Preferred Language Unknown Marital Status Unknown Restoration Affiliation Unknown Race Unknown Ethnic Group Unknown Author Organization [place] Address [address] [phone] Phone Social History date description facility [phone]
== END 2020-06-28 23:34 | disposition home or self-care (01) ==
LOC: SUPCPDRO 19:14 → ED 19:14
DX: M25.572 Pain in left ankle and joints of left foot (principal); M54.2 Cervicalgia; W17.89XA Other fall from one level to another, initial encounter; F17.200 Nicotine dependence, unspecified, uncomplicated
CPT/HCPCS: 70450; 72125; 73610; 96372; 99284; A9270; Q0162

== ENCOUNTER 2020-08-25 06:59 | Emergency (ER) | payer MEDICAID ==
--- OUTSIDE RECORDS SUMMARY | 2020-08-25 07:01 | EXTERNAL MEDICAL SUMMARY RPT | Continuity of Care Document ---
:1980 Demographics Phone Unavailable Preferred Language Unknown Marital Status Unknown Adventism Affiliation Unknown Race Unknown Ethnic Group Unknown Author Organization [place] Address [address] [phone] Phone Allergies Encounters Medications Problems Results
[2020-08-25] MEDS ORDERED: diphenhydrAMINE INJ 50 MG/ML VIAL IVP STA (07:06)
[2020-08-25] MEDS ORDERED: METOCLOPRAMIDE 10 MG/2 ML VIAL IVP STA (07:06)
[2020-08-25] MEDS ORDERED: SODIUM CHLORIDE 0.9% 1,000 ML IV STA (07:06)
[2020-08-25] MEDS ORDERED: ACETAMINOPHEN 325 MG TABLET PO STA (07:06)
--- OUTSIDE RECORDS SUMMARY | 2020-08-25 07:17 | EXTERNAL MEDICAL SUMMARY RPT | Continuity of Care Document ---
:1980 Demographics Phone Unavailable Preferred Language Unknown Marital Status Unknown Anabaptism Affiliation Unknown Race Unknown Ethnic Group Unknown Author Organization [place] Address [address] [phone] Phone Allergies Encounters Medications Problems Results
[2020-08-25] MEDS ORDERED: KETOROLAC 30 MG/ML VIAL IVP STA (07:35)
--- NOTE | 2020-08-25 07:44 | ED Physician Documentation ---
History of Present Illness - Stated complaint Stated Complaint: MIGRAIN,V/N - Chief complaint Chief Complaint: Heent - History obtained from History obtained from: Patient - Additonal information Additional information: 39-year-old gentleman with history of migraines presents with headache consistent with her usual migraines Upon waking this morning with associated nonbloody nonbilious nausea and vomiting and photophobia. Headache is moderate severity, worse with bright lights, generalized, aching, constant, gradually worsening, not relieved with Tylenol. No focal neurological deficits. Review of Systems Ten Systems: 10 systems reviewed and negative Constitutional: denies: Fever, Chills GI: reports: Nausea, Vomiting Neurologic: reports: Headache. denies: Head injury, LOC PD PAST MEDICAL HISTORY - Past Medical History Past Medical History: Yes Cardiovascular: None Respiratory: None Neuro: Migraines Endocrine/Autoimmune: None GI: None RING STRIKER: None : Other HEENT: None Psych: None Musculoskeletal: Chronic back pain Derm: None - Past Surgical History Past Surgical History: Yes General: Appendectomy /RING STRIKER: Tubal ligation - Present Medications Home Medications: Ambulatory Orders Medication Instructions Recorded Confirmed No Known Home Medications 08/25/20 08/25/20 - Allergies Allergies/Adverse Reactions: Allergies Allergy/AdvReac Type Severity Reaction Status Date / Time sumatriptan [From Imitrex] Allergy Hives Verified 08/25/20 07:07 - Social History Does the pt smoke?: Yes Smoking Status: Current every day smoker Does the pt drink ETOH?: Yes Does the pt have substance abuse?: Yes - Immunizations Immunizations are current?: Yes - POLST Patient has POLST: No PD ED PE NORMAL - Vitals Vital signs reviewed: Yes - General General: Alert and oriented X 3, No acute distress, Well developed/nourished, Other (discomfort with bright light) - HEENT HEENT: Atraumatic, PERRL, EOMI - Neck Neck: Supple, no meningeal sign - Derm Derm: Normal color, Warm and dry - Extremities Extremities: No deformity - Neuro Neuro: Alert and oriented X 3, mail room 2-12 intact, No motor deficit, No sensory deficit, Normal speech Results - Vitals Vitals: Vital Signs - 24 hr 08/25/20 07:05 Temperature 36.7 C Heart Rate 73 Respiratory 16 Rate Blood Pressure 120/94 H O2 Saturation 99 Oxygen O2 Source Room air PD MEDICAL DECISION MAKING - ED course ED course: 39-year-old woman presents with typical migraine headache without red flag signs. Will treat symptoms and reevaluate. 10 AMpatient took a long nap and upon waking her light sensitivity has resolved and her headache is significantly improved. She is requesting go home. return precautions given. f/u pmd/neuro. Departure - Departure Disposition: 01 Home, Self Care Clinical Impression: Migraine headache Condition: Good Instructions: ED Headache Migraine Comments: You were seen in the emergency department for migraine headache. Return to the emergency department if you have any new or worsening symptoms or other concerns. Follow-up with your primary doctor.
[2020-08-25] MEDS ORDERED: ONDANSETRON ODT 4 MG TABLET TL STA (10:02)
[2020-08-25 10:23] VITALS: BP 109/84
== END 2020-08-25 10:24 | disposition home or self-care (01) ==
LOC: ED 06:59
DX: G43.909 Migraine, unspecified, not intractable, without status migrainosus (principal); F17.200 Nicotine dependence, unspecified, uncomplicated
CPT/HCPCS: 96374; 99283; 99284; J1200; J2765; Q0162

== ENCOUNTER 2020-12-11 16:23 | Outpatient (CLI) | payer OTHER, MEDICAID | END 2020-12-11 16:24 | disposition EMS.NT | LOC: EMS 16:23 | DX: S81.802A Unspecified open wound, left lower leg, initial encounter (principal); M54.5 Low back pain; R07.81 Pleurodynia; R10.12 Left upper quadrant pain; V57.5XXA Driver of pick-up truck or van injured in collision with fixed or stationary object in traffic accident, initial encounter; Y92.410 Unspecified street and highway as the place of occurrence of the external cause ==

== ENCOUNTER 2021-01-02 16:41 | Outpatient (CLI) | payer OTHER, MEDICAID | END 2021-01-02 16:42 | disposition critical access hospital (66) | LOC: EMS 16:41 | DX: R07.81 Pleurodynia (principal); S22.42XD Multiple fractures of ribs, left side, subsequent encounter for fracture with routine healing; V89.2XXD Person injured in unspecified motor-vehicle accident, traffic, subsequent encounter | CPT/HCPCS: A0425; A0427 ==

== ENCOUNTER 2021-01-02 17:33 | Emergency (ER) | payer OTHER, MEDICAID ==
[2021-01-02 18:03] LABS: BASOPHILS % (AUTO) 0.4 %; EOSINOPHILS # (AUTO) 0.3 10^3/uL (0.0-0.7); EOSINOPHILS % (AUTO) 2.8 %; HCT - HEMATOCRIT 34.6 % (37.0-47.0); HGB - HEMOGLOBIN 10.7 g/dL (12.0-16.0); LYMPHOCYTES # (AUTO) 2.1 10^3/uL (1.5-3.5); LYMPHOCYTES % (AUTO) 19.4 %; MEAN CORPUSCULAR HEMOGLOBIN 30.8 pg (27.0-31.0); MEAN CORPUSCULAR HGB CONC 30.9 g/dL (32.0-36.0); MEAN CORPUSCULAR VOLUME 99.7 fL (81.0-99.0); MEAN PLATELET VOLUME 9.1 fL (7.9-10.8); MONOCYTES # (AUTO) 0.8 10^3/uL (0.0-1.0); MONOCYTES % (AUTO) 7.7 %; NEUTROPHILS # (AUTO) 7.3 10^3/uL (1.5-6.6); NEUTROPHILS % (AUTO) 68.8 %; PLT - PLATELET COUNT 505 10^3/uL (130-450); RED BLOOD COUNT 3.47 10^6/uL (4.20-5.40); RED CELL DISTRIBUTION WIDTH 17.7 % (12.0-15.0); WHITE BLOOD COUNT 10.6 x10^3/uL (4.8-10.8)
[2021-01-02] MEDS ORDERED: HYDROmorphone 1 MG/ML CARPUJECT IVP STA ×2 (18:11→19:58)
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
[2021-01-02 18:21] LABS: CALCIUM 9.3 mg/dL (8.5-10.3); CREATININE 0.6 mg/dL (0.4-1.0); POTASSIUM 4.3 mmol/L (3.5-5.0)
[2021-01-02] MEDS ORDERED: IOVERSOL 320 100 ML VIAL IVP ONE ×2 (18:23→21:21)
--- NOTE | 2021-01-02 19:51 | CT Report ---
PROCEDURE: ANGIO CHEST W/WO INDICATIONS: PE protocol, chest pain, recent DVT CONTRAST: IV CONTRAST: Optiray 320 ml: 80 PO CONTRAST: *NO PO CONTRAST TECHNIQUE: After the administration of intravenous contrast, 2 mm axial images were acquired from the pulmonary apices to the posterior costophrenic angles during the arterial phase. In addition, 1 mm lung kernel and 5 mm soft tissue kernel reconstructions were performed. 3-dimensional coronal oblique maximum int ensity projection (MIP) reformats, 8 mm axial MIP, and 5 mm coronal and sagittal MPR reformats were t hen performed through the thorax. For radiation dose reduction, the following was used: automated exp osure control, adjustment of mA and/or kV according to patient size. COMPARISON: None FINDINGS: Image quality: Excellent. Pulmonary arteries: Pulmonary arteries are not well opacified measuring 135 Hounsfield units. Howeve r within these limitations, no large central pulmonary embolism is identified. Subsegmental pulmonary emboli cannot be excluded. Lungs and pleura: The right lung is clear. The left lung demonstrates consolidative atelectasis in le ft lung base. There is a small left pleural effusion. No pneumothorax. In the right lower lobe centra lly there is a 1.1 cm nodule series 24 image 192. Mediastinum: Heart size is normal, without pericardial effusion. No mediastinal or hilar adenopathy . Thoracic aorta is normal in caliber and enhancement. Esophagus is normal in caliber, without hiat al hernia. Bones and chest wall: No suspicious bony lesions. Ribs and thoracic spine appear intact throughout. No axillary or supraclavicular adenopathy. The thyroid is normal in size and there are no incident al findings. Abdomen: Visualized upper abdominal solid organs appear normal in the early arterial phase of enhanc ement. IMPRESSION: 1. Contrast bolus is suboptimal resulting in suboptimal opacification of the pulmonary arteries, tomas yenni within these limitations, no large central pulmonary embolus is identified. Smaller subsegmental pulmonary emboli cannot be excluded. 2. Left consolidative atelectasis with left pleural effusion. 3. 1.1 cm nodule in the superior right lower lobe. Recommend comparison to other prior imaging if cezar ilable, otherwise recommend PET/CT or close follow-up in 3 months. Reviewed by: Brandon Muro on 01/02/2021 7:49 PM PDT Approved by: Brandon Muro on 01/02/2021 7:49 PM PDT Station ID: [id number]
[2021-01-02] MEDS ORDERED: KETOROLAC 30 MG/ML VIAL IVP STA (20:46)
[2021-01-02] MEDS ORDERED: oxyCODONE/ACET 5/325 Prepack 4 PO STA (21:12)
[2021-01-02 21:27] VITALS: BP 118/69
== END 2021-01-02 21:27 | disposition home or self-care (01) ==
LOC: EDUNIT# → ED 17:33
DX: J98.11 Atelectasis (principal); J90 Pleural effusion, not elsewhere classified; R91.1 Solitary pulmonary nodule; R07.1 Chest pain on breathing; Z86.718 Personal history of other venous thrombosis and embolism; F17.200 Nicotine dependence, unspecified, uncomplicated
CPT/HCPCS: 36415; 71275; 80048; 84484; 85025; 93005; 96374; 96375; 96376; 99284; J1170; Q9967

== ENCOUNTER 2021-02-10 16:32 | Emergency (ER) | payer OTHER, MEDICAID ==
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
[2021-02-10] MEDS: APIXABAN 5 MG TABLET PO STA (18:19)
--- NOTE | 2021-02-10 18:48 | Ultrasound Report ---
PROCEDURE: Duplex Ext Veins Left INDICATIONS: LLE swelling, h/o DVT 8 weeks ago TECHNIQUE: Real-time imaging, as well as color and pulse Doppler interrogation, were performed of the lower extr emity deep veins from the inguinal ligament to the popliteal fossa. COMPARISON: None. FINDINGS: The deep veins are normally compressible, and free of intraluminal thrombus. Color and pu lse Doppler demonstrate normal phasic intraluminal flow. There is normal augmentation response to di stal compression maneuver. IMPRESSION: No DVT in the left lower extremity. Reviewed by: Chela Ibanez MD on 02/10/2021 6:47 PM PST Approved by: Chela Ibanez MD on 02/10/2021 6:47 PM PST Station ID: [id number]
[2021-02-10 18:57] VITALS: BP 124/82
== END 2021-02-10 18:57 | disposition home or self-care (01) ==
LOC: ED 16:32
DX: I82.492 Acute embolism and thrombosis of other specified deep vein of left lower extremity (principal); Z79.01 Long term (current) use of anticoagulants; F17.200 Nicotine dependence, unspecified, uncomplicated
CPT/HCPCS: 93971; 99284; A9270

== ENCOUNTER 2021-12-04 04:00 | Outpatient (CLI) | payer OTHER, MEDICAID | END 2021-12-04 04:01 | disposition critical access hospital (66) | LOC: EMS 04:00 | DX: G43.909 Migraine, unspecified, not intractable, without status migrainosus (principal) | CPT/HCPCS: A0425; A0429 ==

== ENCOUNTER 2021-12-04 04:22 | Emergency (ER) | payer OTHER, MEDICAID ==
--- NOTE | 2021-12-04 04:40 | ED Physician Documentation ---
PD HPI HEADACHE - Stated complaint Stated Complaint: QUIÑONEZ - Chief complaint Chief Complaint: Neuro - History obtained from History obtained from: Patient - History of Present Illness Timing - onset: Enter time (03:30), Today Timing - onset during: Sleep Timing - details: Abrupt onset, Constant Pain level now: 8 Worst headache ever?: No: Worst headache ever? Location: Global Quality: Aching Associated symptoms: Nausea. No: Fever, Stiff neck, Vomiting Improved by: Dark room, Quiet Worsened by: Light, Noise Similar symptoms before: Diagnosis (similar to previous migraine headaches) - Additional information Additional information: c/o global headache x 1 hour, similar to previous migraine headaches, with nausea and photophobia. She says she has been diagnosed with migraine headaches, does not have medication at home for migraines. Review of Systems Constitutional: denies: Fever GI: reports: Nausea. denies: Vomiting Musculoskeletal: denies: Neck pain Neurologic: reports: Headache. denies: Generalized weakness, Focal weakness, Numbness, Confused, Altered mental status, Head injury PD PAST MEDICAL HISTORY - Past Medical History Past Medical History: Yes Neuro: Migraines - Present Medications Home Medications: Ambulatory Orders Medication Instructions Recorded Confirmed Ondansetron Odt [Zofran Odt] 4 mg TL Q6H PRN #10 tablet 08/25/20 Oxycodone HCl/Acetaminophen 1 - 2 each PO Q6H PRN #14 tablet 01/02/21 [Percocet 5-325 mg Tablet] Apixaban [Eliquis] 5 mg PO BID #74 tablet 02/10/21 No Known Home Medications 12/04/21 12/04/21 - Allergies Allergies/Adverse Reactions: Allergies Allergy/AdvReac Type Severity Reaction Status Date / Time sumatriptan [From Imitrex] Allergy Hives Verified 12/04/21 09:32 PD ED PE NORMAL - Vitals Vital signs reviewed: Yes - General General: Alert and oriented X 3, Well developed/nourished, Other (appears uncomfortable; lights dimmed for patient comfort, and she is covering eyes with blanket) - HEENT HEENT: PERRL, EOMI, Moist mucous membranes - Neck Neck: Supple, no meningeal sign - Neuro Neuro: Alert and oriented X 3, machine accountant 2-12 intact, Normal speech Eye Opening: Spontaneous Motor: Obeys Commands Verbal: Oriented GCS Score: 15 Results - Vitals Vitals: Vital Signs - 24 hr 12/04/21 12/04/21 12/04/21 04:25 05:20 05:43 Temperature 36.0 C L Heart Rate 72 67 75 Respiratory 22 16 16 Rate Blood Pressure 159/93 H 147/98 H 107/73 O2 Saturation 97 98 100 12/04/21 12/04/21 05:52 06:45 Temperature 36.2 C L Heart Rate 60 61 Respiratory 16 16 Rate Blood Pressure 122/85 H 111/79 O2 Saturation 97 98 Oxygen O2 Source Nasal cannula PD MEDICAL DECISION MAKING - ED course Complexity details: reviewed old records, re-evaluated patient, considered differential, d/w patient ED course: c/o headache which she says is c/w previous migraines; she has had many previous [facility] ED visits for headaches. She says she is allergic to imitrex. I ask which medications usually work for her migraines and she indicates she usually has relief with a combination of medications on previous visits. Reviewing previous visits, it seems she typically has relief with benadryl, reglan, and toradol as well as decadron. These medications are given as well as one liter NS, and on reevaluation she is in NAD, no longer covering her eyes. She is drowsy but awakens to voice and reports resolution of her headache and that she is ready for d/c home. Departure - Departure Disposition: 01 Home, Self Care Clinical Impression: Migraine Qualifiers: Migraine type: unspecified Status migrainosus presence: without status migrainosus Intractability: not intractable Qualified Code(s): G43.909 - Migraine, unspecified, not intractable, without status migrainosus Condition: Good Instructions: ED Headache Migraine Discharge Date/Time: 12/04/21 06:46
[2021-12-04] MEDS ORDERED: KETOROLAC 30 MG/ML VIAL IVP STA (05:11)
[2021-12-04] MEDS ORDERED: DEXAMETHASONE 10 MG/ML VIAL IVP STA (05:11)
[2021-12-04] MEDS ORDERED: diphenhydrAMINE INJ 50 MG/ML VIAL IVP STA (05:11)
[2021-12-04] MEDS ORDERED: METOCLOPRAMIDE 10 MG/2 ML VIAL IVP STA (05:11)
[2021-12-04] MEDS ORDERED: SODIUM CHLORIDE 0.9% 1,000 ML IV STA (05:11)
[2021-12-04 06:46] VITALS: BP 111/79
== END 2021-12-04 06:46 | disposition home or self-care (01) ==
LOC: MERGE 04:22 → ED 04:22
DX: G43.909 Migraine, unspecified, not intractable, without status migrainosus (principal)
CPT/HCPCS: 96374; 96375; 99282; 99285; J1200; J2765

== ENCOUNTER 2021-12-21 18:44 | Emergency (ER) | payer OTHER, MEDICAID ==
--- OUTSIDE RECORDS SUMMARY | 2021-12-21 18:53 | EXTERNAL MEDICAL SUMMARY RPT | Continuity of Care Document ---
:1980 Author Organization [facility] Address [address] [place] [address] Phone Allergies and Intolerances date description facility type (no date) No Known Drug Allergies [facility] (unkn own) Encounters No information. Functional Status No information. Immunizations No information. Medications No information. Problems No information. Procedures No information. Results/Labs test date author facility value unit interpret ation Result panel 1 (unknown) (no (unknown) (unknown) (no value) (units (unk nown) date) unknown) (unknown) (no (unknown) (unknown) (Tylenol Extra (units (unknown) date) Strength) unknown) (unknown) (no (unknown) (unknown) ) (units (unkno wn) date) unknown) (unknown) (no (unknown) (unknown) [id number] (units (unkno wn) date) unknown) (unknown) (no (unknown) (unknown) 12/03/21 (units (unkno wn) date) unknown) (unknown) (no (unknown) (unknown) 09:03 (units (unkno wn) date) unknown) (unknown) (no (unknown) (unknown) 1,000 mg PO Q6H (units (unknown) date) PRN unknown) (unknown) (no (unknown) (unknown) 500 mg PO BID (units ( unknown) date) Qty: 30 0RF unknown) (unknown) (no (unknown) (unknown) Age/Sex: 40 / F (units (unknown) date) unknown) (unknown) (no (unknown) (unknown) Allergies (units (unkn own) date) unknown) (unknown) (no (unknown) (unknown) Allergy/AdvReac (units (unknown) date) Type Severity unknown) Reaction Status Date / Time (unknown) (no (unknown) (unknown) Anesthesia (units (unk nown) date) unknown) (unknown) (no (unknown) (unknown) Blood Pressure (units (unknown) date) 138/88 12/03/21 unknown) 09:03 (unknown) (no (unknown) (unknown) Blood Pressure (units (unknown) date) 138/88 unknown) (unknown) (no (unknown) (unknown) Chief complaint: (units (unknown) date) Extremity unknown) Problem,Nontrauma tic (unknown) (no (unknown) (unknown) Course (units (unkno wn) date) unknown) (unknown) (no (unknown) (unknown) : 1980 (units (unknown) date) Acct:[id number] unknown) (unknown) (no (unknown) (unknown) Date of Service: (units (unknown) date) 12/03/21 unknown) (unknown) (no (unknown) (unknown) Departure (units (unkn own) date) unknown) (unknown) (no (unknown) (unknown) Discharge Plan (units (unknown) date) unknown) (unknown) (no (unknown) (unknown) ER Physician: (units ( unknown) date) Peyton Serra unknown) D.O. (unknown) (no (unknown) (unknown) Cecy Mcclain, (units (unknown) date) ENGRAVING PATTERNMAKER [Primary unknown) Care Provider] (unknown) (no (unknown) (unknown) Emergency Report (units (unknown) date) unknown) (unknown) (no (unknown) (unknown) Exam (units (unkno wn) date) unknown) (unknown) (no (unknown) (unknown) Family History (units (unknown) date) (Updated 11/18/18 unknown) @ 21:44 by Esther Mckeon) (unknown) (no (unknown) (unknown) Family/Other (units (u nknown) date) Brain damage unknown) (unknown) (no (unknown) (unknown) Family/Other (units (u nknown) date) Cerebral palsy unknown) (unknown) (no (unknown) (unknown) Father Diabetes (units (unknown) date) mellitus unknown) (unknown) (no (unknown) (unknown) General (units (unkno wn) date) unknown) (unknown) (no (unknown) (unknown) Grandmother (units (un known) date) Urethral cancer unknown) (unknown) (no (unknown) (unknown) HPI - Extremity (units (unknown) date) Problem unknown) (unknown) (no (unknown) (unknown) History of (units (unk nown) date) appendectomy unknown) (-07/24/15) (unknown) (no (unknown) (unknown) History of heart (units (unknown) date) disease unknown) (unknown) (no (unknown) (unknown) Home Medications (units (unknown) date) unknown) (unknown) (no (unknown) (unknown) Hyperlipidemia (units (unknown) date) unknown) (unknown) (no (unknown) (unknown) Hypertension (units (u nknown) date) unknown) (unknown) (no (unknown) (unknown) Initial Vital (units ( unknown) date) Signs unknown) (unknown) (no (unknown) (unknown) Initial Vital (units ( unknown) date) Signs: unknown) (unknown) (no (unknown) (unknown) [facility] (units (unknown) date) [address] [place] [address] Street unknown) [place] [address] (unknown) (no (unknown) (unknown) Limitations: no (units (unknown) date) limitations unknown) (unknown) (no (unknown) (unknown) Medical History (units (unknown) date) (Updated 01/13/21 unknown) @ 00:01 by ) (unknown) (no (unknown) (unknown) Medication (units (unk nown) date) Instructions unknown) Recorded Confirmed (unknown) (no (unknown) (unknown) Medication (units (unk nown) date) Instructions unknown) Recorded (unknown) (no (unknown) (unknown) Migraines (units (unkn own) date) () unknown) (unknown) (no (unknown) (unknown) Mode of arrival: (units (unknown) date) Family Vehicle unknown) (unknown) (no (unknown) (unknown) Mother (units (unknown) date) No problems unknown) noted. (unknown) (no (unknown) (unknown) No Action (units (unkn own) date) unknown) (unknown) (no (unknown) (unknown) No Known Drug (units ( unknown) date) Allergies Allergy unknown) Verified 12/29/20 13:07 (unknown) (no (unknown) (unknown) Oxygen Delivery (units (unknown) date) Method 12/03/21 unknown) 09:03 (unknown) (no (unknown) (unknown) Oxygen Delivery (units (unknown) date) Method Room Air unknown) (unknown) (no (unknown) (unknown) Patient History (units (unknown) date) unknown) (unknown) (no (unknown) (unknown) Patient: (units (unkno wn) date) Lisa Platt unknown) MR#: [id number] (unknown) (no (unknown) (unknown) Prescriptions: (units (unknown) date) unknown) (unknown) (no (unknown) (unknown) Previous Rx's (units ( unknown) date) unknown) (unknown) (no (unknown) (unknown) Pulse Oximetry (units (unknown) date) 97 12/03/21 09:03 unknown) (unknown) (no (unknown) (unknown) Pulse Oximetry (units (unknown) date) 97 unknown) (unknown) (no (unknown) (unknown) Pulse Rate 68 (units ( unknown) date) 12/03/21 09:03 unknown) (unknown) (no (unknown) (unknown) Pulse Rate 68 (units ( unknown) date) unknown) (unknown) (no (unknown) (unknown) ROS Unobtainable: (units (unknown) date) All systems unknown) reviewed + are unremarkable except as noted in HPI (unknown) (no (unknown) (unknown) Referrals: (units (unk nown) date) unknown) (unknown) (no (unknown) (unknown) Related Data (units (u nknown) date) unknown) (unknown) (no (unknown) (unknown) Respiratory Rate (units (unknown) date) 19 12/03/21 09:03 unknown) (unknown) (no (unknown) (unknown) Respiratory Rate (units (unknown) date) 19 unknown) (unknown) (no (unknown) (unknown) Review of (units (unkn own) date) Systems unknown) (unknown) (no (unknown) (unknown) Rx Instructions: (units (unknown) date) unknown) (unknown) (no (unknown) (unknown) Signed By: (units (unk nown) date) unknown) (unknown) (no (unknown) (unknown) Sister (units (unknown) date) Cancer unknown) (unknown) (no (unknown) (unknown) Smoking Status: (units (unknown) date) Current every day unknown) smoker (unknown) (no (unknown) (unknown) Social History (units (unknown) date) (Reviewed unknown) 10/16/18 @ 21:38 by Pradeep Becerra DO) (unknown) (no (unknown) (unknown) Source: patient (units (unknown) date) unknown) (unknown) (no (unknown) (unknown) Stated (units (unkno wn) date) complaint: Left unknown) leg pain (unknown) (no (unknown) (unknown) Substance Use (units ( unknown) date) Type: marijuana unknown) (unknown) (no (unknown) (unknown) Surgical History (units (unknown) date) (Updated 11/18/18 unknown) @ 21:38 by Esther Mckeon) (unknown) (no (unknown) (unknown) Take one tablet (units (unknown) date) by mouth with unknown) food twice daily (unknown) (no (unknown) (unknown) Temperature 96.7 (units (unknown) date) F L 12/03/21 unknown) 09:03 (unknown) (no (unknown) (unknown) Temperature 96.7 (units (unknown) date) F L unknown) (unknown) (no (unknown) (unknown) Time Seen by (units (u nknown) date) Provider: unknown) 12/03/21 09:25 (unknown) (no (unknown) (unknown) Tobacco: How (units (u nknown) date) many years used: unknown) 23 (unknown) (no (unknown) (unknown) Vision disorder (units (unknown) date) unknown) (unknown) (no (unknown) (unknown) Vital Signs - 8 (units (unknown) date) hr unknown) (unknown) (no (unknown) (unknown) Vital Signs (units (un known) date) unknown) (unknown) (no (unknown) (unknown) Vital signs: (units (u nknown) date) unknown) (unknown) (no (unknown) (unknown) acetaminophen (units ( unknown) date) 500 mg tablet unknown) 1,000 mg PO Q6H PRN 10/16/18 10/16/18 (unknown) (no (unknown) (unknown) acetaminophen (units ( unknown) date) [Tylenol Extra unknown) Strength] 500 mg tablet (unknown) (no (unknown) (unknown) alcohol intake (units (unknown) date) frequency: 0-2 unknown) drinks per day (unknown) (no (unknown) (unknown) alcohol intake: (units (unknown) date) current ('2-3 unknown) mikes a night') (unknown) (no (unknown) (unknown) and below (units (unkn own) date) unknown) (unknown) (no (unknown) (unknown) naproxen 500 mg (units (unknown) date) tablet 500 mg PO unknown) BID #30 tabs 10/17/18 (unknown) (no (unknown) (unknown) naproxen 500 mg (units (unknown) date) tablet unknown) (unknown) (no (unknown) (unknown) quit status: (units (u nknown) date) considering unknown) quitting (off an on. Denies smoking cessation handout. (unknown) (no (unknown) (unknown) second hand (units (un known) date) exposure: No unknown) (unknown) (no (unknown) (unknown) substance use (units ( unknown) date) type: marijuana unknown) ('smoke, daily') (unknown) (no (unknown) (unknown) tobacco type: (units ( unknown) date) cigarettes unknown) Result panel 2 (unknown) (no (unknown) (unknown) (no value) (units (unk nown) date) unknown) (unknown) (no (unknown) (unknown) [id number] (units (unkno wn) date) unknown) (unknown) (no (unknown) (unknown) 12/03/21 (units (unkno wn) date) unknown) (unknown) (no (unknown) (unknown) [address] [place] [address] (units (unknown) date) unknown) (unknown) (no (unknown) (unknown) 16:01. (units (unkno wn) date) unknown) (unknown) (no (unknown) (unknown) 10/31/2018, (units (unk nown) date) 11:05. unknown) (unknown) (no (unknown) (unknown) Accession (units (unkn own) date) Number: unknown) [id number] (unknown) (no (unknown) (unknown) Accession (units (unkn own) date) Number: unknown) [id number] (unknown) (no (unknown) (unknown) Age/Sex: 40 / F (units (unknown) date) Date of Service: unknown) (unknown) (no (unknown) (unknown) [place], [place] (units ( unknown) date) [address] unknown) (unknown) (no (unknown) (unknown) Approved by: (units (u nknown) date) pedro Ceja) Adriana on 12/03/2021 at 9:13 (unknown) (no (unknown) (unknown) Approved by: (units (u nknown) date) pedro Ceja) Adriana on 12/03/2021 at 9:27 (unknown) (no (unknown) (unknown) Bones: (units (unkno wn) date) Postsurgical unknown) changes are seen from distal tibial fracture fixation with (unknown) (no (unknown) (unknown) COMPARISON: (units (un known) date) [facility], unknown) US, US PERIPH VENOUS LOW EXTREM LT, 12/29/2020, (unknown) (no (unknown) (unknown) [facility]: [facility] (un known) date[facility] KNEE AR[facility]IC SERIES LT, (unknown) (no (unknown) (unknown) : 1980 (units (unknown) date) Acct:[id number] unknown) (unknown) (no (unknown) (unknown) Dictated by: (units (u nknown) date) pedro Ceja) Adriana on 12/03/2021 at 9:06 (unknown) (no (unknown) (unknown) Dictated by: (units (u nknown) date) pedro Ceja) Adriana on 12/03/2021 at 9:27 (unknown) (no (unknown) (unknown) FINDINGS: The (units ( unknown) date) common femoral, unknown) femoral and popliteal veins are normally (unknown) (no (unknown) (unknown) FINDINGS: (units (unkn own) date) unknown) (unknown) (no (unknown) (unknown) IMPRESSION: No (units (unknown) date) sonographic unknown) evidence of deep venous thrombosis in the left (unknown) (no (unknown) (unknown) IMPRESSION: (units (un known) date) Postsurgical unknown) changes from distal tibial fracture fixation. (unknown) (no (unknown) (unknown) INDICATIONS: (units (u nknown) date) PAIN; HX unknown) TRAUMATIC INJURY (unknown) (no (unknown) (unknown) INDICATIONS: (units (u nknown) date) traumatic injury, unknown) acute on chronic pain (unknown) (no (unknown) (unknown) [facility] (units (unknown) date) unknown) (unknown) (no (unknown) (unknown) Loc: ED (units (unkno wn) date) unknown) (unknown) (no (unknown) (unknown) Metallic (units (unkno wn) date) unknown) (unknown) (no (unknown) (unknown) Ordering (units (unkno wn) date) Provider: unknown) Peyton Serra D.O. (unknown) (no (unknown) (unknown) PROCEDURE: US (units ( unknown) date) PERIPH VENOUS LOW unknown) EXTREM LT (unknown) (no (unknown) (unknown) PROCEDURE: XR (units ( unknown) date) TIBIA FIBULA LT unknown) 2V (unknown) (no (unknown) (unknown) Patient: (units (unkno wn) date) Lisa Platt M unknown) MR#: [id number] (unknown) (no (unknown) (unknown) Previously seen (units (unknown) date) partial thrombus unknown) of the left popliteal vein is no longer (unknown) (no (unknown) (unknown) Procedure: US (units ( unknown) date) periph venous low unknown) extrem lt (unknown) (no (unknown) (unknown) Procedure: XR (units ( unknown) date) tibia fibula LT unknown) 2V (unknown) (no (unknown) (unknown) Real-time (units (unkn own) date) imaging, as well unknown) as color and pulse Doppler interrogation, were (unknown) (no (unknown) (unknown) Signed (units (unkno wn) date) unknown) (unknown) (no (unknown) (unknown) Soft tissues: A (units (unknown) date) few nonspecific unknown) calcifications are seen in the posterior (unknown) (no (unknown) (unknown) TECHNIQUE: 2 (units (u nknown) date) views of the unknown) tibia and fibula were acquired. (unknown) (no (unknown) (unknown) TECHNIQUE: (units (unk nown) date) unknown) (unknown) (no (unknown) (unknown) Ultrasound (units (unk nown) date) Report unknown) (unknown) (no (unknown) (unknown) XRay Report (units (un known) date) unknown) (unknown) (no (unknown) (unknown) abnormality (units (un known) date) unknown) (unknown) (no (unknown) (unknown) an (units (unkno wn) date) unknown) (unknown) (no (unknown) (unknown) and screws. (units (un known) date) Metallic hardware unknown) appears to be intact. Mild callus formation is (unknown) (no (unknown) (unknown) compressible, (units ( unknown) date) and unknown) (unknown) (no (unknown) (unknown) extremity. (units (unk nown) date) unknown) (unknown) (no (unknown) (unknown) fossa. (units (unkno wn) date) unknown) (unknown) (no (unknown) (unknown) free of (units (unkno wn) date) intraluminal unknown) thrombus. Color and pulse Doppler demonstrate normal (unknown) (no (unknown) (unknown) hardware is (units (un known) date) intact. Fracture unknown) site is not well assessed. No acute osseous (unknown) (no (unknown) (unknown) identified. (units (un known) date) unknown) (unknown) (no (unknown) (unknown) intraluminal (units (u nknown) date) flow. There is unknown) normal augmentation response to distal compression (unknown) (no (unknown) (unknown) intramedullary (units (unknown) date) nail with unknown) proximal and distal locking screws as well as metallic (unknown) (no (unknown) (unknown) lower (units (unkno wn) date) unknown) (unknown) (no (unknown) (unknown) maneuver. (units (unkn own) date) unknown) (unknown) (no (unknown) (unknown) medial (units (unkno wn) date) unknown) (unknown) (no (unknown) (unknown) performed of (units (u nknown) date) unknown) (unknown) (no (unknown) (unknown) phasic (units (unkno wn) date) unknown) (unknown) (no (unknown) (unknown) plates (units (unkno wn) date) unknown) (unknown) (no (unknown) (unknown) seen, but (units (unkn own) date) unknown) (unknown) (no (unknown) (unknown) subcutaneous (units (u nknown) date) tissues. unknown) (unknown) (no (unknown) (unknown) the fracture is (units (unknown) date) incompletely unknown) visualized and persistent lucency is not excluded. (unknown) (no (unknown) (unknown) the lower (units (unkn own) date) extremity deep unknown) veins from the inguinal ligament to the popliteal (unknown) (no (unknown) (unknown) visualized. (units (un known) date) unknown) Result panel 3 (unknown) (no (unknown) (unknown) (no value) (units (unk nown) date) unknown) (unknown) (no (unknown) (unknown) (Tylenol Extra (units (unknown) date) Strength) unknown) (unknown) (no (unknown) (unknown) ) (units (unkno wn) date) unknown) (unknown) (no (unknown) (unknown) [id number] (units (unkno wn) date) unknown) (unknown) (no (unknown) (unknown) 12/03/21 09:43 (units (unknown) date) unknown) (unknown) (no (unknown) (unknown) 12/03/21 (units (unkno wn) date) unknown) (unknown) (no (unknown) (unknown) 09:03 (units (unkno wn) date) unknown) (unknown) (no (unknown) (unknown) 1,000 mg PO Q6H (units (unknown) date) PRN unknown) (unknown) (no (unknown) (unknown) 40-year-old (units (un known) date) female with unknown) complaint of acute on chronic left leg pain. Patient (unknown) (no (unknown) (unknown) 500 mg PO BID (units ( unknown) date) Qty: 30 0RF unknown) (unknown) (no (unknown) (unknown) ABDOMEN: Soft, (units (unknown) date) nontender. unknown) Normoactive bowel sounds all 4 quadrants. No (unknown) (no (unknown) (unknown) Age/Sex: 40 / F (units (unknown) date) unknown) (unknown) (no (unknown) (unknown) Allergies (units (unkn own) date) unknown) (unknown) (no (unknown) (unknown) Allergy/AdvReac (units (unknown) date) Type Severity unknown) Reaction Status Date / Time (unknown) (no (unknown) (unknown) Anesthesia (units (unk nown) date) unknown) (unknown) (no (unknown) (unknown) BMP [Basic (units (unk nown) date) Metabolic Panel] unknown) Stat (unknown) (no (unknown) (unknown) Blood Culture (units ( unknown) date) Stat unknown) (unknown) (no (unknown) (unknown) Blood Pressure (units (unknown) date) 138/88 12/03/21 unknown) 09:03 (unknown) (no (unknown) (unknown) Blood Pressure (units (unknown) date) unknown) (unknown) (no (unknown) (unknown) CARDIOVASCULAR: (units (unknown) date) Regular rate and unknown) rhythm without murmurs, rubs or gallops. No (unknown) (no (unknown) (unknown) CBC Auto Diff (units ( unknown) date) [Complete Blood unknown) Count AUTO DIFF] Stat (unknown) (no (unknown) (unknown) CRP [C-Reactive (units (unknown) date) Protein Quant] unknown) Stat (unknown) (no (unknown) (unknown) Chief complaint: (units (unknown) date) Extremity unknown) Problem,Nontraumat ic (unknown) (no (unknown) (unknown) Course (units (unkno wn) date) unknown) (unknown) (no (unknown) (unknown) : 1980 (units (unknown) date) Acct:[id number] unknown) (unknown) (no (unknown) (unknown) Date of Service: (units (unknown) date) 12/03/21 unknown) (unknown) (no (unknown) (unknown) Departure (units (unkn own) date) unknown) (unknown) (no (unknown) (unknown) Discharge Plan (units (unknown) date) unknown) (unknown) (no (unknown) (unknown) ED Orders (units (unkn own) date) unknown) (unknown) (no (unknown) (unknown) ER Physician: (units ( unknown) date) Peyton Serra D.O. unknown) (unknown) (no (unknown) (unknown) ESR [Erythrocyte (units (unknown) date) Sedimentation unknown) Rate] Stat (unknown) (no (unknown) (unknown) EXTREMITIES: (units (u nknown) date) Normal range of unknown) motion, no clubbing or edema appreciated. (unknown) (no (unknown) (unknown) Cecy Mcclain, (units (unknown) date) ENGRAVING PATTERNMAKER [Primary Care unknown) Provider] (unknown) (no (unknown) (unknown) Emergency Report (units (unknown) date) unknown) (unknown) (no (unknown) (unknown) Exam Narrative: (units (unknown) date) unknown) (unknown) (no (unknown) (unknown) Exam (units (unkno wn) date) unknown) (unknown) (no (unknown) (unknown) Family History (units (unknown) date) (Reviewed 12/03/21 unknown) @ 09:49 by Peyton Serra DO) (unknown) (no (unknown) (unknown) Family/Other (units (u nknown) date) Brain damage unknown) (unknown) (no (unknown) (unknown) Family/Other (units (u nknown) date) Cerebral palsy unknown) (unknown) (no (unknown) (unknown) Father Diabetes (units (unknown) date) mellitus unknown) (unknown) (no (unknown) (unknown) GENERAL: Alert (units (unknown) date) and oriented x unknown) three, female in [id number] distress. (unknown) (no (unknown) (unknown) : No CVA (units (unk nown) date) tenderness unknown) (unknown) (no (unknown) (unknown) General (units (unkno wn) date) unknown) (unknown) (no (unknown) (unknown) Grandmother (units (un known) date) Urethral cancer unknown) (unknown) (no (unknown) (unknown) HEENT: Head (units (un known) date) normocephalic, unknown) atraumatic, EOMI, pupils reactive, face symmetric, (unknown) (no (unknown) (unknown) HPI - Extremity (units (unknown) date) Problem unknown) (unknown) (no (unknown) (unknown) HPI Narrative: (units (unknown) date) unknown) (unknown) (no (unknown) (unknown) History of (units (unk nown) date) Present Illness unknown) (unknown) (no (unknown) (unknown) History of (units (unk nown) date) appendectomy unknown) (-07/24/15) (unknown) (no (unknown) (unknown) History of heart (units (unknown) date) disease unknown) (unknown) (no (unknown) (unknown) Home Medications (units (unknown) date) unknown) (unknown) (no (unknown) (unknown) Hyperlipidemia (units (unknown) date) unknown) (unknown) (no (unknown) (unknown) Hypertension (units (u nknown) date) unknown) (unknown) (no (unknown) (unknown) Initial Vital (units ( unknown) date) Signs unknown) (unknown) (no (unknown) (unknown) Initial Vital (units ( unknown) date) Signs: unknown) (unknown) (no (unknown) (unknown) [facility] (units (unknown) date) [address] [place] [address] unknown) [place] [address] (unknown) (no (unknown) (unknown) JVD. (units (unkno wn) date) unknown) (unknown) (no (unknown) (unknown) Ketorolac (units (unkn own) date) Tromethamine unknown) (Ketorolac 30 Mg/Ml Vial) 30 mg IV NOW ONE (unknown) (no (unknown) (unknown) Limitations: no (units (unknown) date) limitations unknown) (unknown) (no (unknown) (unknown) MDM - Extremity (units (unknown) date) (Nontraumatic) unknown) (unknown) (no (unknown) (unknown) MDM Narrative (units ( unknown) date) unknown) (unknown) (no (unknown) (unknown) Medical History (units (unknown) date) (Reviewed 12/03/21 unknown) @ 09:49 by Peyton Serra DO) (unknown) (no (unknown) (unknown) Medical decision (units (unknown) date) making narrative: unknown) (unknown) (no (unknown) (unknown) Medication (units (unk nown) date) Instructions unknown) Recorded Confirmed (unknown) (no (unknown) (unknown) Medication (units (unk nown) date) Instructions unknown) Recorded (unknown) (no (unknown) (unknown) Migraines (-1999) (units (unknown) date) unknown) (unknown) (no (unknown) (unknown) Mode of arrival: (units (unknown) date) Family Vehicle unknown) (unknown) (no (unknown) (unknown) Mother (units (unknown) date) No problems noted. unknown) (unknown) (no (unknown) (unknown) NECK: Supple, (units ( unknown) date) full range of unknown) motion (unknown) (no (unknown) (unknown) NEUROLOGICAL: (units ( unknown) date) Cranial nerves II unknown) through XII grossly intact. Moving all (unknown) (no (unknown) (unknown) Narrative (units (unkn own) date) unknown) (unknown) (no (unknown) (unknown) Neurovascularly (units (unknown) date) intact. Patient unknown) has large what appears to be healed wound on (unknown) (no (unknown) (unknown) No Action (units (unkn own) date) unknown) (unknown) (no (unknown) (unknown) No Known Drug (units ( unknown) date) Allergies Allergy unknown) Verified 12/29/20 13:07 (unknown) (no (unknown) (unknown) Ondansetron HCl (units (unknown) date) (Ondansetron 4 unknown) Mg/2 Ml Inj) 4 mg IV NOW ONE (unknown) (no (unknown) (unknown) Ordered: (units (unkno wn) date) unknown) (unknown) (no (unknown) (unknown) Orders (units (unkno wn) date) unknown) (unknown) (no (unknown) (unknown) Oxygen Delivery (units (unknown) date) Method 12/03/21 unknown) 09:03 (unknown) (no (unknown) (unknown) Oxygen Delivery (units (unknown) date) Method Room Air unknown) (unknown) (no (unknown) (unknown) Patient History (units (unknown) date) unknown) (unknown) (no (unknown) (unknown) Patient currently (units (unknown) date) only takes Tylenol unknown) she is off her thinners since March. (unknown) (no (unknown) (unknown) Patient states (units (unknown) date) pain was sudden unknown) onset upon awakening today, worse with (unknown) (no (unknown) (unknown) Patient: (units (unkno wn) date) Lisa Platt unknown) MR#: [id number] (unknown) (no (unknown) (unknown) Prescriptions: (units (unknown) date) unknown) (unknown) (no (unknown) (unknown) Previous Rx's (units ( unknown) date) unknown) (unknown) (no (unknown) (unknown) Pulse Oximetry 97 (units (unknown) date) 12/03/21 09:03 unknown) (unknown) (no (unknown) (unknown) Pulse Oximetry 97 (units (unknown) date) unknown) (unknown) (no (unknown) (unknown) Pulse Rate 68 (units ( unknown) date) 12/03/21 09:03 unknown) (unknown) (no (unknown) (unknown) Pulse Rate 68 (units ( unknown) date) unknown) (unknown) (no (unknown) (unknown) RESPIRATORY: (units (u nknown) date) Breath sounds unknown) equal bilaterally, no wheezes rales or rhonchi. No (unknown) (no (unknown) (unknown) ROS Unobtainable: (units (unknown) date) All systems unknown) reviewed + are unremarkable except as noted in HPI (unknown) (no (unknown) (unknown) Referrals: (units (unk nown) date) unknown) (unknown) (no (unknown) (unknown) Related Data (units (u nknown) date) unknown) (unknown) (no (unknown) (unknown) Respiratory Rate (units (unknown) date) 19 12/03/21 09:03 unknown) (unknown) (no (unknown) (unknown) Respiratory Rate (units (unknown) date) 19 unknown) (unknown) (no (unknown) (unknown) Review of Systems (units (unknown) date) unknown) (unknown) (no (unknown) (unknown) Rx Instructions: (units (unknown) date) unknown) (unknown) (no (unknown) (unknown) SKIN: Warm, dry, (units (unknown) date) no petechiae, no unknown) rashes or lesions. (unknown) (no (unknown) (unknown) Signed By: (units (unk nown) date) unknown) (unknown) (no (unknown) (unknown) Sister (units (unknown) date) Cancer unknown) (unknown) (no (unknown) (unknown) Smoking Status: (units (unknown) date) Current every day unknown) smoker (unknown) (no (unknown) (unknown) Social History (units (unknown) date) (Reviewed 12/03/21 unknown) @ 09:49 by Peyton Serra DO) (unknown) (no (unknown) (unknown) Source: patient (units (unknown) date) unknown) (unknown) (no (unknown) (unknown) Stated complaint: (units (unknown) date) Left leg pain unknown) (unknown) (no (unknown) (unknown) Stop: 12/03/21 (units (unknown) date) 09:44 unknown) (unknown) (no (unknown) (unknown) Substance Use (units ( unknown) date) Type: marijuana unknown) (unknown) (no (unknown) (unknown) Surgical History (units (unknown) date) (Reviewed 12/03/21 unknown) @ 09:49 by Peyton Serra DO) (unknown) (no (unknown) (unknown) Take one tablet (units (unknown) date) by mouth with food unknown) twice daily (unknown) (no (unknown) (unknown) Temperature 96.7 (units (unknown) date) F L 12/03/21 09:03 unknown) (unknown) (no (unknown) (unknown) Temperature 96.7 (units (unknown) date) F L unknown) (unknown) (no (unknown) (unknown) This is a (units (unkn own) date) 40-year-old female unknown) with history of significant left lower extremity (unknown) (no (unknown) (unknown) Time Seen by (units (u nknown) date) Provider: 12/03/21 unknown) 09:25 (unknown) (no (unknown) (unknown) Tobacco: How many (units (unknown) date) years used: 23 unknown) (unknown) (no (unknown) (unknown) Tylenol as needed (units (unknown) date) for pain. She unknown) denies any other daily medications. She denies (unknown) (no (unknown) (unknown) US periph venous (units (unknown) date) low extrem lt Stat unknown) (unknown) (no (unknown) (unknown) Vision disorder (units (unknown) date) unknown) (unknown) (no (unknown) (unknown) Vital Signs - 8 (units (unknown) date) hr unknown) (unknown) (no (unknown) (unknown) Vital Signs (units (un known) date) unknown) (unknown) (no (unknown) (unknown) Vital signs: (units (u nknown) date) unknown) (unknown) (no (unknown) (unknown) XR tibia fibula (units (unknown) date) LT 2V Stat unknown) (unknown) (no (unknown) (unknown) acetaminophen 500 (units (unknown) date) mg tablet 1,000 mg unknown) PO Q6H PRN 10/16/18 10/16/18 (unknown) (no (unknown) (unknown) acetaminophen (units ( unknown) date) [Tylenol Extra unknown) Strength] 500 mg tablet (unknown) (no (unknown) (unknown) alcohol intake (units (unknown) date) frequency: 0-2 unknown) drinks per day (unknown) (no (unknown) (unknown) alcohol intake: (units (unknown) date) current ('2-3 unknown) mikes a night') (unknown) (no (unknown) (unknown) ambulation. Exam (units (unknown) date) overall is unknown) reassuring patient appears to be neurovascularly (unknown) (no (unknown) (unknown) and below (units (unkn own) date) unknown) (unknown) (no (unknown) (unknown) and has since (units ( unknown) date) been able to stop unknown) all her medications. She states she only takes (unknown) (no (unknown) (unknown) ankle, there is (units (unknown) date) obvious defect unknown) with healed skin grafts over the location. There (unknown) (no (unknown) (unknown) antibiotics until (units (unknown) date) March. She unknown) states hardware was placed [facility] but she (unknown) (no (unknown) (unknown) any known drug (units (unknown) date) allergies. She unknown) does smoke tobacco, occasional alcohol, (unknown) (no (unknown) (unknown) breath. She is (units (unknown) date) had some slight unknown) nausea with the pain but no vomiting. No (unknown) (no (unknown) (unknown) decrease in (units (un known) date) movement. Patient unknown) states she did have infections and was on oral (unknown) (no (unknown) (unknown) developed (units (unkn own) date) significant pain unknown) over the anterior portion over 1 of her skin grafts (unknown) (no (unknown) (unknown) diagnosed here in (units (unknown) date) December of 2020 unknown) was anticoagulated she states until March (unknown) (no (unknown) (unknown) diarrhea, (units (unkn own) date) constipation or unknown) urinary symptoms. Patient states no new changes in (unknown) (no (unknown) (unknown) extremities (units (un known) date) unknown) (unknown) (no (unknown) (unknown) friend at bedside (units (unknown) date) today. unknown) (unknown) (no (unknown) (unknown) guarding or (units (un known) date) rebound, rigidity, unknown) no mass (unknown) (no (unknown) (unknown) had her skin (units (u nknown) date) graft done at unknown) [facility]. She did develop a DVT which was (unknown) (no (unknown) (unknown) had significant (units (unknown) date) traumatic injury unknown) later developed DVT to the lower extremity. (unknown) (no (unknown) (unknown) her anterior left (units (unknown) date) lower galeano that unknown) runs from the upper galeano to just above the (unknown) (no (unknown) (unknown) her paresthesias, (units (unknown) date) she does ambulate unknown) on her leg normally and ambulation is (unknown) (no (unknown) (unknown) increasing the (units (unknown) date) pain, she has unknown) normal plantar flexion and dorsiflexion with no (unknown) (no (unknown) (unknown) injury with (units (un known) date) hardware, tissue unknown) loss and skin grafts and developed DVT in December (unknown) (no (unknown) (unknown) intact with no (units (unknown) date) obvious signs of unknown) infection. Patient did have infections of her (unknown) (no (unknown) (unknown) is new. She has (units (unknown) date) not had any fevers unknown) or chills. No chest pain or shortness of (unknown) (no (unknown) (unknown) is no warmth, (units ( unknown) date) erythema, unknown) ecchymosis or skin changes appreciated. Patient has cap (unknown) (no (unknown) (unknown) laterally and at (units (unknown) date) the ankle. Patient unknown) states she has appreciated maybe some (unknown) (no (unknown) (unknown) legs and was on (units (unknown) date) oral antibiotics unknown) but states never was on IV antibiotics for a (unknown) (no (unknown) (unknown) moist mucous (units (u nknown) date) membranes unknown) (unknown) (no (unknown) (unknown) naproxen 500 mg (units (unknown) date) tablet 500 mg PO unknown) BID #30 tabs 10/17/18 (unknown) (no (unknown) (unknown) naproxen 500 mg (units (unknown) date) tablet unknown) (unknown) (no (unknown) (unknown) not appreciated (units (unknown) date) any skin changes, unknown) redness, there has not been any drainage, (unknown) (no (unknown) (unknown) occasional (units (unk nown) date) marijuana but no unknown) other illicit or IV drugs. She is accompanied by a (unknown) (no (unknown) (unknown) of 2020 and has (units (unknown) date) completed her unknown) anticoagulation regimen in March. Patient (unknown) (no (unknown) (unknown) of motion of the (units (unknown) date) leg. No pallor or unknown) cyanosis of the lower extremity. (unknown) (no (unknown) (unknown) prolonged period. (units (unknown) date) Plan for labs, unknown) obtain culture, ultrasound rule out DVT and x (unknown) (no (unknown) (unknown) quit status: (units (u nknown) date) considering unknown) quitting (off an on. Denies smoking cessation handout. (unknown) (no (unknown) (unknown) ray to evaluate (units (unknown) date) hardware. unknown) (unknown) (no (unknown) (unknown) refill less than (units (unknown) date) 2 seconds unknown) bilateral lower extremities. Patient has sensation (unknown) (no (unknown) (unknown) second hand (units (un known) date) exposure: No unknown) (unknown) (no (unknown) (unknown) slightly (units (unkno wn) date) increased swelling unknown) over the skin graft very slowly over time. She has (unknown) (no (unknown) (unknown) states that she (units (unknown) date) has had some unknown) chronic pain and paresthesias but this morning (unknown) (no (unknown) (unknown) substance use (units ( unknown) date) type: marijuana unknown) ('smoke, daily') (unknown) (no (unknown) (unknown) tachypnea (units (unkn own) date) accessory muscle unknown) use. (unknown) (no (unknown) (unknown) there has not (units ( unknown) date) been any warmth. unknown) Patient does not recall any recent trauma that (unknown) (no (unknown) (unknown) to light touch. (units (unknown) date) She has normal unknown) plantar and dorsiflexion as well as full range (unknown) (no (unknown) (unknown) tobacco type: (units ( unknown) date) cigarettes unknown) Result panel 4 (unknown) (no date) (unknown) (unknown) 0.8 % (unkn own) (unknown) (no date) (unknown) (unknown) 100 /ul (unkn own) (unknown) (no date) (unknown) (unknown) 14.6 % (unkn own) (unknown) (no date) (unknown) (unknown) 16.7 g/dl (unkn own) (unknown) (no date) (unknown) (unknown) 2.1 % (unkn own) (unknown) (no date) (unknown) (unknown) 200 /ul (unkn own) (unknown) (no date) (unknown) (unknown) 2500 /ul (unkn own) (unknown) (no date) (unknown) (unknown) 255 x10 3/ul (unkn own) (unknown) (no date) (unknown) (unknown) 30.7 pg (unkn own) (unknown) (no date) (unknown) (unknown) 31.6 % (unkn own) (unknown) (no date) (unknown) (unknown) 33.3 % (unkn own) (unknown) (no date) (unknown) (unknown) 400 /ul (unkn own) (unknown) (no date) (unknown) (unknown) 4700 /ul (unkn own) (unknown) (no date) (unknown) (unknown) 5.44 x10 6/ul (unkn own) (unknown) (no date) (unknown) (unknown) 5.5 % (unkn own) (unknown) (no date) (unknown) (unknown) 50.0 % (unkn own) (unknown) (no date) (unknown) (unknown) 60.0 % (unkn own) (unknown) (no date) (unknown) (unknown) 7.8 x10 3/ul (unkn own) (unknown) (no date) (unknown) (unknown) 92.0 fl (unkn own) Result panel 5 (unknown) (no date) (unknown) (unknown) > 60 ml/min (unkn own) (unknown) (no date) (unknown) (unknown) > 60 ml/min (unkn own) (unknown) (no date) (unknown) (unknown) 0.57 mg/dl (unkn own) (unknown) (no date) (unknown) (unknown) 0.9 mg/dl (unkn own) (unknown) (no date) (unknown) (unknown) 108 mmol/l (unkn own) (unknown) (no date) (unknown) (unknown) 14 mg/dl (unkn own) (unknown) (no date) (unknown) (unknown) 141 mmol/l (unkn own) (unknown) (no date) (unknown) (unknown) 24 mmol/l (unkn own) (unknown) (no date) (unknown) (unknown) 24.6 (units unknown) (unknown) (unknown) (no date) (unknown) (unknown) 4.6 mmol/l (unkn own) (unknown) (no date) (unknown) (unknown) 4.6 mmol/l (unkn own) (unknown) (no date) (unknown) (unknown) 9.1 mg/dl (unkn own) (unknown) (no date) (unknown) (unknown) 99 mg/dl (unkn own) (unknown) (no date) (unknown) (unknown) 99 mg/dl (unkn own) Result panel 6 (unknown) (no date) (unknown) (unknown) 0.8 % (unkn own) (unknown) (no date) (unknown) (unknown) 1 mm/hr (unkn own) (unknown) (no date) (unknown) (unknown) 100 /ul (unkn own) (unknown) (no date) (unknown) (unknown) 14.6 % (unkn own) (unknown) (no date) (unknown) (unknown) 16.7 g/dl (unkn own) (unknown) (no date) (unknown) (unknown) 2.1 % (unkn own) (unknown) (no date) (unknown) (unknown) 200 /ul (unkn own) (unknown) (no date) (unknown) (unknown) 2500 /ul (unkn own) (unknown) (no date) (unknown) (unknown) 255 x10 3/ul (unkn own) (unknown) (no date) (unknown) (unknown) 30.7 pg (unkn own) (unknown) (no date) (unknown) (unknown) 31.6 % (unkn own) (unknown) (no date) (unknown) (unknown) 33.3 % (unkn own) (unknown) (no date) (unknown) (unknown) 400 /ul (unkn own) (unknown) (no date) (unknown) (unknown) 4700 /ul (unkn own) (unknown) (no date) (unknown) (unknown) 5.44 x10 6/ul (unkn own) (unknown) (no date) (unknown) (unknown) 5.5 % (unkn own) (unknown) (no date) (unknown) (unknown) 50.0 % (unkn own) (unknown) (no date) (unknown) (unknown) 60.0 % (unkn own) (unknown) (no date) (unknown) (unknown) 7.8 x10 3/ul (unkn own) (unknown) (no date) (unknown) (unknown) 92.0 fl (unkn own) Result panel 7 (unknown) (no (unknown) (unknown) (no value) (units (unk nown) date) unknown) (unknown) (no (unknown) (unknown) [id number] (units (unkno wn) date) unknown) (unknown) (no (unknown) (unknown) 12/03/21 (units (unkno wn) date) unknown) (unknown) (no (unknown) (unknown) [address] (units (unkn own) date) Street unknown) (unknown) (no (unknown) (unknown) Accession (units (unkn own) date) Number: unknown) [id number] (unknown) (no (unknown) (unknown) Age/Sex: 40 / F (units (unknown) date) Date of Service: unknown) (unknown) (no (unknown) (unknown) Thai MD (units ( unknown) date) [id number] unknown) (unknown) (no (unknown) (unknown) Approved by: (units (u nknown) date) pedro Ceja) Adriana on 12/03/2021 at 12:03 (unknown) (no (unknown) (unknown) Bones: (units (unkno wn) date) Postsurgical unknown) changes are seen from distal tibial fracture fixation. (unknown) (no (unknown) (unknown) COMPARISON: (units (un known) date) None. unknown) (unknown) (no (unknown) (unknown) : 1980 (units (unknown) date) Acct:[id number] unknown) (unknown) (no (unknown) (unknown) Dictated by: (units (u nknown) date) pedro Ceja) Adriana on 12/03/2021 at 12:00 (unknown) (no (unknown) (unknown) FINDINGS: (units (unkn own) date) unknown) (unknown) (no (unknown) (unknown) IMPRESSION: (units (un known) date) Possible unknown) minimally displaced transverse fracture of the distal (unknown) (no (unknown) (unknown) INDICATIONS: (units (u nknown) date) leg pain, s/p unknown) prior injury (unknown) (no (unknown) (unknown) [facility] (units (unknown) date) unknown) (unknown) (no (unknown) (unknown) Loc: ED (units (unkno wn) date) unknown) (unknown) (no (unknown) (unknown) Metallic (units (unkno wn) date) unknown) (unknown) (no (unknown) (unknown) Ordering (units (unkno wn) date) Provider: unknown) Peyton Serra D.O. (unknown) (no (unknown) (unknown) PROCEDURE: XR (units ( unknown) date) ANKLE LT MIN 3V unknown) (unknown) (no (unknown) (unknown) Patient: (units (unkno wn) date) Lisa Platt M unknown) MR#: [id number] (unknown) (no (unknown) (unknown) Postsurgical (units (u nknown) date) changes at the unknown) distal tibia. (unknown) (no (unknown) (unknown) Procedure: XR (units ( unknown) date) ankle LT min 3V unknown) (unknown) (no (unknown) (unknown) Signed (units (unkno wn) date) unknown) (unknown) (no (unknown) (unknown) Soft tissues: (units ( unknown) date) Soft tissue unknown) edema surrounding the ankle and lower leg. (unknown) (no (unknown) (unknown) TECHNIQUE: 3 (units (u nknown) date) views of the unknown) ankle were acquired. (unknown) (no (unknown) (unknown) XRay Report (units (un known) date) unknown) (unknown) (no (unknown) (unknown) distal fibula (units ( unknown) date) unknown) (unknown) (no (unknown) (unknown) extending into (units (unknown) date) the mortise unknown) joint. (unknown) (no (unknown) (unknown) fibula. (units (unkno wn) date) unknown) (unknown) (no (unknown) (unknown) hardware is (units (un known) date) intact. There is unknown) a suspected transverse linear lucency at the Result panel 8 (unknown) (no (unknown) (unknown) (no value) (units (unk nown) date) unknown) (unknown) (no (unknown) (unknown) <Electronically (units (unknown) date) signed by Peyton Guillaume unknown) Bronson Serra> (unknown) (no (unknown) (unknown) (Tylenol Extra (units (unknown) date) Strength) unknown) (unknown) (no (unknown) (unknown) ) (units (unkno wn) date) unknown) (unknown) (no (unknown) (unknown) [id number] (units (unkno wn) date) unknown) (unknown) (no (unknown) (unknown) 12/03/21 12/03/21 (units (unknown) date) Range/Units unknown) (unknown) (no (unknown) (unknown) 12/03/21 10:00 (units (unknown) date) unknown) (unknown) (no (unknown) (unknown) 12/03/21 (units (unkno wn) date) unknown) (unknown) (no (unknown) (unknown) 12/04/21 0910 (units ( unknown) date) unknown) (unknown) (no (unknown) (unknown) 09:03 (units (unkno wn) date) unknown) (unknown) (no (unknown) (unknown) 1,000 mg PO Q6H (units (unknown) date) PRN unknown) (unknown) (no (unknown) (unknown) 10:00 10:00 (units (un known) date) unknown) (unknown) (no (unknown) (unknown) 40-year-old (units (un known) date) female with unknown) complaint of acute on chronic left leg pain. Patient (unknown) (no (unknown) (unknown) 5 mg PO QID PRN (units (unknown) date) (Reason: pain) unknown) Qty: 20 0RF (unknown) (no (unknown) (unknown) 500 mg PO BID (units ( unknown) date) Qty: 30 0RF unknown) (unknown) (no (unknown) (unknown) ABDOMEN: Soft, (units (unknown) date) nontender. unknown) Normoactive bowel sounds all 4 quadrants. No (unknown) (no (unknown) (unknown) Activity (units (unkno wn) date) Restrictions/Addit unknown) ional Instructions: (unknown) (no (unknown) (unknown) Age/Sex: 40 / F (units (unknown) date) unknown) (unknown) (no (unknown) (unknown) Allergies (units (unkn own) date) unknown) (unknown) (no (unknown) (unknown) Allergy/AdvReac (units (unknown) date) Type Severity unknown) Reaction Status Date / Time (unknown) (no (unknown) (unknown) Anesthesia (units (unk nown) date) unknown) (unknown) (no (unknown) (unknown) BUN 14 (7-17) (units ( unknown) date) mg/dL unknown) (unknown) (no (unknown) (unknown) BUN/Creatinine (units (unknown) date) Ratio 24.6 H unknown) (6-22) (unknown) (no (unknown) (unknown) Baso # (Auto) 100 (units (unknown) date) (0-100) /uL unknown) (unknown) (no (unknown) (unknown) Baso % (Auto) 0.8 (units (unknown) date) (0-2) % unknown) (unknown) (no (unknown) (unknown) Blood Pressure (units (unknown) date) 138/88 unknown) (unknown) (no (unknown) (unknown) C-Reactive (units (unk nown) date) Protein 0.9 (<1.0) unknown) mg/dL (unknown) (no (unknown) (unknown) CARDIOVASCULAR: (units (unknown) date) Regular rate and unknown) rhythm without murmurs, rubs or gallops. No (unknown) (no (unknown) (unknown) CPT negative, (units ( unknown) date) labs including ESR unknown) CRP and white count do not show any elevation (unknown) (no (unknown) (unknown) Calcium 9.1 (units (un known) date) (8.4-10.2) mg/dL unknown) (unknown) (no (unknown) (unknown) Carbon Dioxide 24 (units (unknown) date) (22-32) mmol/L unknown) (unknown) (no (unknown) (unknown) Chief complaint: (units (unknown) date) Extremity unknown) Problem,Nontraumat ic (unknown) (no (unknown) (unknown) Chloride 108 H (units (unknown) date) (98-107) mmol/L unknown) (unknown) (no (unknown) (unknown) Clinical (units (unkno wn) date) Impression: unknown) (unknown) (no (unknown) (unknown) Course (units (unkno wn) date) unknown) (unknown) (no (unknown) (unknown) Creatinine 0.57 (units (unknown) date) (0.52-1.04) mg/dL unknown) (unknown) (no (unknown) (unknown) : 1980 (units (unknown) date) Acct:[id number] unknown) (unknown) (no (unknown) (unknown) Date of Service: (units (unknown) date) 12/03/21 unknown) (unknown) (no (unknown) (unknown) Departure (units (unkn own) date) unknown) (unknown) (no (unknown) (unknown) Discharge Plan (units (unknown) date) unknown) (unknown) (no (unknown) (unknown) Discontinued (units (u nknown) date) Medications unknown) (unknown) (no (unknown) (unknown) Documented By: AT (units (unknown) date) unknown) (unknown) (no (unknown) (unknown) Documented By: MC (units (unknown) date) unknown) (unknown) (no (unknown) (unknown) ER Physician: (units ( unknown) date) Peyton Serra D.O. unknown) (unknown) (no (unknown) (unknown) ESR 1 (0-20) (units (u nknown) date) MM/HR unknown) (unknown) (no (unknown) (unknown) EXTREMITIES: (units (u nknown) date) Normal range of unknown) motion, no clubbing or edema appreciated. (unknown) (no (unknown) (unknown) Cecy Mcclain, (units (unknown) date) ENGRAVING PATTERN[employer]KER [Primary Care unknown) Provider] (unknown) (no (unknown) (unknown) Elevated affected (units (unknown) date) body part to unknown) decrease swelling. (unknown) (no (unknown) (unknown) Emergency Report (units (unknown) date) unknown) (unknown) (no (unknown) (unknown) Eos # (Auto) 200 (units (unknown) date) (0-450) /uL unknown) (unknown) (no (unknown) (unknown) Eos % (Auto) 2.1 (units (unknown) date) (2-4) % unknown) (unknown) (no (unknown) (unknown) Estimated GFR > (units (unknown) date) 60 (>60) mL/min unknown) (unknown) (no (unknown) (unknown) Exam Narrative: (units (unknown) date) unknown) (unknown) (no (unknown) (unknown) Exam (units (unkno wn) date) unknown) (unknown) (no (unknown) (unknown) Extremity x-ray (units (unknown) date) #2: unknown) (unknown) (no (unknown) (unknown) Family History (units (unknown) date) (Reviewed 12/03/21 unknown) @ 09:49 by Peyton Serra DO) (unknown) (no (unknown) (unknown) Family/Other (units (u nknown) date) Brain damage unknown) (unknown) (no (unknown) (unknown) Family/Other (units (u nknown) date) Cerebral palsy unknown) (unknown) (no (unknown) (unknown) Father Diabetes (units (unknown) date) mellitus unknown) (unknown) (no (unknown) (unknown) GENERAL: Alert (units (unknown) date) and oriented x unknown) three, female in [id number] distress. (unknown) (no (unknown) (unknown) : No CVA (units (unk nown) date) tenderness unknown) (unknown) (no (unknown) (unknown) General (units (unkno wn) date) unknown) (unknown) (no (unknown) (unknown) Glucose 99 (units (unk nown) date) (70-100) mg/dL unknown) (unknown) (no (unknown) (unknown) Grandmother (units (un known) date) Urethral cancer unknown) (unknown) (no (unknown) (unknown) HEENT: Head (units (un known) date) normocephalic, unknown) atraumatic, EOMI, pupils reactive, face symmetric, (unknown) (no (unknown) (unknown) HPI - Extremity (units (unknown) date) Problem unknown) (unknown) (no (unknown) (unknown) HPI Narrative: (units (unknown) date) unknown) (unknown) (no (unknown) (unknown) Hct 50.0 H (units (unk nown) date) (36-46) % unknown) (unknown) (no (unknown) (unknown) Hgb 16.7 H (units (unk nown) date) (12.0-16.0) g/dL unknown) (unknown) (no (unknown) (unknown) History of (units (unk nown) date) Present Illness unknown) (unknown) (no (unknown) (unknown) History of (units (unk nown) date) appendectomy unknown) (-07/24/15) (unknown) (no (unknown) (unknown) History of heart (units (unknown) date) disease unknown) (unknown) (no (unknown) (unknown) Home Medications (units (unknown) date) unknown) (unknown) (no (unknown) (unknown) Hyperlipidemia (units (unknown) date) unknown) (unknown) (no (unknown) (unknown) Hypertension (units (u nknown) date) unknown) (unknown) (no (unknown) (unknown) If you develop (units ( unknown) date) worsening pain, unknown) numbness, tingling, discoloration of the affected (unknown) (no (unknown) (unknown) Imaging Data (units (u nknown) date) unknown) (unknown) (no (unknown) (unknown) Initial Vital (units ( unknown) date) Signs unknown) (unknown) (no (unknown) (unknown) Initial Vital (units ( unknown) date) Signs: unknown) (unknown) (no (unknown) (unknown) Instructions: DI (units (unknown) date) for Ankle Fracture unknown) (unknown) (no (unknown) (unknown) [facility] (units (unknown) date) [address] [place] [address] unknown) [place] [address] (unknown) (no (unknown) (unknown) JVD. (units (unkno wn) date) unknown) (unknown) (no (unknown) (unknown) Keep splint clean (units (unknown) date) and dry. unknown) (unknown) (no (unknown) (unknown) Ketorolac (units (unkn own) date) Tromethamine unknown) (Ketorolac 30 Mg/Ml Vial) 30 mg IV NOW ONE (unknown) (no (unknown) (unknown) Lab Data (units (unkno wn) date) unknown) (unknown) (no (unknown) (unknown) Lab Results (units (un known) date) unknown) (unknown) (no (unknown) (unknown) Labs: (units (unkno wn) date) unknown) (unknown) (no (unknown) (unknown) Last Admin: (units (un known) date) 12/03/21 09:52 unknown) Dose: 30 mg (unknown) (no (unknown) (unknown) Last Admin: (units (un known) date) 12/03/21 09:53 unknown) Dose: 4 mg (unknown) (no (unknown) (unknown) Last Admin: (units (un known) date) 12/03/21 12:02 unknown) Dose: 4 mg (unknown) (no (unknown) (unknown) Last Admin: (units (un known) date) 12/03/21 14:23 unknown) Dose: 10 mg (unknown) (no (unknown) (unknown) Left leg pain, (units (unknown) date) Closed left unknown) fibular fracture (unknown) (no (unknown) (unknown) Limitations: no (units (unknown) date) limitations unknown) (unknown) (no (unknown) (unknown) Lymph # (Auto) (units (unknown) date) 2500 (2793-2100) unknown) /uL (unknown) (no (unknown) (unknown) Lymph % (Auto) (units (unknown) date) 31.6 (25-40) % unknown) (unknown) (no (unknown) (unknown) MCH 30.7 (26-34) (units (unknown) date) PG unknown) (unknown) (no (unknown) (unknown) MCHC 33.3 (30-36) (units (unknown) date) % unknown) (unknown) (no (unknown) (unknown) MCV 92.0 (80-100) (units (unknown) date) fL unknown) (unknown) (no (unknown) (unknown) MDM - Extremity (units (unknown) date) (Nontraumatic) unknown) (unknown) (no (unknown) (unknown) MDM Narrative (units ( unknown) date) unknown) (unknown) (no (unknown) (unknown) Medical History (units (unknown) date) (Reviewed 12/03/21 unknown) @ 09:49 by Peyton Serra DO) (unknown) (no (unknown) (unknown) Medical decision (units (unknown) date) making narrative: unknown) (unknown) (no (unknown) (unknown) Medication (units (unk nown) date) Instructions unknown) Recorded Confirmed (unknown) (no (unknown) (unknown) Medication (units (unk nown) date) Instructions unknown) Recorded (unknown) (no (unknown) (unknown) Migraines (-2000) (units (unknown) date) unknown) (unknown) (no (unknown) (unknown) Mode of arrival: (units (unknown) date) Family Vehicle unknown) (unknown) (no (unknown) (unknown) Ralls # (Auto) 400 (units (unknown) date) (0-900) /uL unknown) (unknown) (no (unknown) (unknown) Ralls % (Auto) 5.5 (units (unknown) date) (3-14) % unknown) (unknown) (no (unknown) (unknown) Morphine Sulfate (units (unknown) date) (Morphine 4 Mg/Ml unknown) Inj) 4 mg IV NOW ONE (unknown) (no (unknown) (unknown) Mother (units (unknown) date) No problems noted. unknown) (unknown) (no (unknown) (unknown) NECK: Supple, (units ( unknown) date) full range of unknown) motion (unknown) (no (unknown) (unknown) NEUROLOGICAL: (units ( unknown) date) Cranial nerves II unknown) through XII grossly intact. Moving all (unknown) (no (unknown) (unknown) Narrative (units (unkn own) date) unknown) (unknown) (no (unknown) (unknown) Neurovascularly (units (unknown) date) intact. Patient unknown) has large what appears to be healed wound on (unknown) (no (unknown) (unknown) Neut # (Auto) (units ( unknown) date) 4700 (7395-5449) unknown) /uL (unknown) (no (unknown) (unknown) Neut % (Auto) (units ( unknown) date) 60.0 (50-75) % unknown) (unknown) (no (unknown) (unknown) New (units (unkno wn) date) unknown) (unknown) (no (unknown) (unknown) No Action (units (unkn own) date) unknown) (unknown) (no (unknown) (unknown) No Known Drug (units ( unknown) date) Allergies Allergy unknown) Verified 12/29/20 13:07 (unknown) (no (unknown) (unknown) OK to use ice (units ( unknown) date) pack on the unknown) affected body part. (unknown) (no (unknown) (unknown) Ondansetron HCl (units (unknown) date) (Ondansetron 4 unknown) Mg/2 Ml Inj) 4 mg IV NOW ONE (unknown) (no (unknown) (unknown) Ordered: (units (unkno wn) date) unknown) (unknown) (no (unknown) (unknown) Orders (units (unkno wn) date) unknown) (unknown) (no (unknown) (unknown) Oxycodone HCl (units ( unknown) date) (Oxycodone Ir 5 Mg unknown) Tablet) 10 mg PO NOW ONE (unknown) (no (unknown) (unknown) Oxygen Delivery (units (unknown) date) Method Room Air unknown) (unknown) (no (unknown) (unknown) Patient (units (unkno wn) date) Disposition: Home unknown) (unknown) (no (unknown) (unknown) Patient History (units (unknown) date) unknown) (unknown) (no (unknown) (unknown) Patient currently (units (unknown) date) only takes Tylenol unknown) she is off her thinners since March. (unknown) (no (unknown) (unknown) Patient has (units (un known) date) mildly displaced unknown) fibular fracture on x-ray imaging. Unable to see (unknown) (no (unknown) (unknown) Patient states (units (unknown) date) pain was sudden unknown) onset upon awakening today, worse with (unknown) (no (unknown) (unknown) Patient: (units (unkno wn) date) Lisa Platt unknown) MR#: [id number] (unknown) (no (unknown) (unknown) Please follow-up (units (unknown) date) with orthopedic unknown) surgery regarding the fracture of your distal (unknown) (no (unknown) (unknown) Plt Count 255 (units ( unknown) date) (150-400) X103/uL unknown) (unknown) (no (unknown) (unknown) Potassium 4.6 (units ( unknown) date) (3.4-5.1) mmol/L unknown) (unknown) (no (unknown) (unknown) Prescription sent (units (unknown) date) to [facility] unknown) [place] (unknown) (no (unknown) (unknown) Prescriptions: (units (unknown) date) unknown) (unknown) (no (unknown) (unknown) Previous Rx's (units ( unknown) date) unknown) (unknown) (no (unknown) (unknown) Pulse Oximetry 97 (units (unknown) date) unknown) (unknown) (no (unknown) (unknown) Pulse Oximetry 98 (units (unknown) date) 12/03/21 08:58 unknown) (unknown) (no (unknown) (unknown) Pulse Rate 68 (units ( unknown) date) unknown) (unknown) (no (unknown) (unknown) Pulse Rate 79 (units ( unknown) date) 12/03/21 08:58 unknown) (unknown) (no (unknown) (unknown) RBC 5.44 H (units (unk nown) date) (4.0-5.2) X106/uL unknown) (unknown) (no (unknown) (unknown) RDW 14.6 (units (unkno wn) date) (11.6-14.8) % unknown) (unknown) (no (unknown) (unknown) RESPIRATORY: (units (u nknown) date) Breath sounds unknown) equal bilaterally, no wheezes rales or rhonchi. No (unknown) (no (unknown) (unknown) ROS Unobtainable: (units (unknown) date) All systems unknown) reviewed + are unremarkable except as noted in HPI (unknown) (no (unknown) (unknown) Radiologist's (units ( unknown) date) Impression: unknown) (unknown) (no (unknown) (unknown) Referrals: (units (unk nown) date) unknown) (unknown) (no (unknown) (unknown) Related Data (units (u nknown) date) unknown) (unknown) (no (unknown) (unknown) Respiratory Rate (units (unknown) date) 19 unknown) (unknown) (no (unknown) (unknown) Result diagrams: (units (unknown) date) unknown) (unknown) (no (unknown) (unknown) Return to the (units ( unknown) date) Emergency unknown) Department for any new or worsening symptoms. (unknown) (no (unknown) (unknown) Review of Systems (units (unknown) date) unknown) (unknown) (no (unknown) (unknown) Rx Instructions: (units (unknown) date) unknown) (unknown) (no (unknown) (unknown) SKIN: Warm, dry, (units (unknown) date) no petechiae, no unknown) rashes or lesions. (unknown) (no (unknown) (unknown) Signed By: (units (unk nown) date) unknown) (unknown) (no (unknown) (unknown) Sister (units (unknown) date) Cancer unknown) (unknown) (no (unknown) (unknown) Christina Harris, (units (unknown) date) [Physician] unknown) (unknown) (no (unknown) (unknown) Smoking Status: (units (unknown) date) Current every day unknown) smoker (unknown) (no (unknown) (unknown) Social History (units (unknown) date) (Reviewed 12/03/21 unknown) @ 09:49 by Peyton Serra DO) (unknown) (no (unknown) (unknown) Sodium 141 (units (unk nown) date) (137-145) mmol/L unknown) (unknown) (no (unknown) (unknown) Source: patient (units (unknown) date) unknown) (unknown) (no (unknown) (unknown) Splint Care: (units (u nknown) date) unknown) (unknown) (no (unknown) (unknown) Stated complaint: (units (unknown) date) Left leg pain unknown) (unknown) (no (unknown) (unknown) Stop: 12/03/21 (units (unknown) date) 09:44 unknown) (unknown) (no (unknown) (unknown) Stop: 12/03/21 (units (unknown) date) 11:56 unknown) (unknown) (no (unknown) (unknown) Stop: 12/03/21 (units (unknown) date) 14:15 unknown) (unknown) (no (unknown) (unknown) Substance Use (units ( unknown) date) Type: marijuana unknown) (unknown) (no (unknown) (unknown) Surgical History (units (unknown) date) (Reviewed 12/03/21 unknown) @ 09:49 by Peyton Serra DO) (unknown) (no (unknown) (unknown) Take one tablet (units (unknown) date) by mouth with food unknown) twice daily (unknown) (no (unknown) (unknown) Temperature 96.7 (units (unknown) date) F L unknown) (unknown) (no (unknown) (unknown) This is a (units (unkn own) date) 40-year-old female unknown) with history of significant left lower extremity (unknown) (no (unknown) (unknown) Time Seen by (units (u nknown) date) Provider: 12/03/21 unknown) 09:25 (unknown) (no (unknown) (unknown) Tobacco: How many (units (unknown) date) years used: 23 unknown) (unknown) (no (unknown) (unknown) Tylenol as needed (units (unknown) date) for pain. She unknown) denies any other daily medications. She denies (unknown) (no (unknown) (unknown) Use for 15-20 (units ( unknown) date) minutes each time, unknown) for 5-6x per day. (unknown) (no (unknown) (unknown) Use walker and (units (unknown) date) you may toe-touch unknown) weightbear. (unknown) (no (unknown) (unknown) Vision disorder (units (unknown) date) unknown) (unknown) (no (unknown) (unknown) Visit Report (units (u nknown) date) Forms: Patient unknown) Portal/API (unknown) (no (unknown) (unknown) Vital Signs - 8 (units (unknown) date) hr unknown) (unknown) (no (unknown) (unknown) Vital Signs (units (un known) date) unknown) (unknown) (no (unknown) (unknown) Vital signs: (units (u nknown) date) unknown) (unknown) (no (unknown) (unknown) WBC 7.8 (units (unkno wn) date) (4.5-11.0) X103/uL unknown) (unknown) (no (unknown) (unknown) You can also take (units (unknown) date) oxycodone 1-2 unknown) tablets every 6 hours as needed for pain as (unknown) (no (unknown) (unknown) You may take (units (u nknown) date) Tylenol up to a unknown) 1000 mg every 6 hours needed for pain. (unknown) (no (unknown) (unknown) [Embedded Image (units (unknown) date) Not Available] unknown) (unknown) (no (unknown) (unknown) acetaminophen 500 (units (unknown) date) mg tablet 1,000 mg unknown) PO Q6H PRN 10/16/18 10/16/18 (unknown) (no (unknown) (unknown) acetaminophen (units ( unknown) date) [Tylenol Extra unknown) Strength] 500 mg tablet (unknown) (no (unknown) (unknown) alcohol intake (units (unknown) date) frequency: 0-2 unknown) drinks per day (unknown) (no (unknown) (unknown) alcohol intake: (units (unknown) date) current ('2-3 unknown) mikes a night') (unknown) (no (unknown) (unknown) ambulation. Exam (units (unknown) date) overall is unknown) reassuring patient appears to be neurovascularly (unknown) (no (unknown) (unknown) and below (units (unkn own) date) unknown) (unknown) (no (unknown) (unknown) and has since (units ( unknown) date) been able to stop unknown) all her medications. She states she only takes (unknown) (no (unknown) (unknown) ankle, there is (units (unknown) date) obvious defect unknown) with healed skin grafts over the location. There (unknown) (no (unknown) (unknown) antibiotics until (units (unknown) date) March. She unknown) states hardware was placed [facility] but she (unknown) (no (unknown) (unknown) any known drug (units (unknown) date) allergies. She unknown) does smoke tobacco, occasional alcohol, (unknown) (no (unknown) (unknown) body (units (unkno wn) date) unknown) (unknown) (no (unknown) (unknown) boot, toe-touch (units (unknown) date) weight-bearing and unknown) follow-up with orthopedic surgery. (unknown) (no (unknown) (unknown) breath. She is (units (unknown) date) had some slight unknown) nausea with the pain but no vomiting. No (unknown) (no (unknown) (unknown) culture was sent (units (unknown) date) but suspect unknown) patient just has fracture although she does not (unknown) (no (unknown) (unknown) decrease in (units (un known) date) movement. Patient unknown) states she did have infections and was on oral (unknown) (no (unknown) (unknown) developed (units (unkn own) date) significant pain unknown) over the anterior portion over 1 of her skin grafts (unknown) (no (unknown) (unknown) diagnosed here in (units (unknown) date) December of 2020 unknown) was anticoagulated she states until March (unknown) (no (unknown) (unknown) diarrhea, (units (unkn own) date) constipation or unknown) urinary symptoms. Patient states no new changes in (unknown) (no (unknown) (unknown) does not populate (units (unknown) date) in our EMR. unknown) (unknown) (no (unknown) (unknown) extremities (units (un known) date) unknown) (unknown) (no (unknown) (unknown) fibula. Call to (units (unknown) date) set up an unknown) appointment. Contact information is below. (unknown) (no (unknown) (unknown) for an (units (unkno wn) date) unknown) (unknown) (no (unknown) (unknown) friend at bedside (units (unknown) date) today. unknown) (unknown) (no (unknown) (unknown) guarding or (units (un known) date) rebound, rigidity, unknown) no mass (unknown) (no (unknown) (unknown) had her skin (units (u nknown) date) graft done at unknown) [facility]. She did develop a DVT which was (unknown) (no (unknown) (unknown) had significant (units (unknown) date) traumatic injury unknown) later developed DVT to the lower extremity. (unknown) (no (unknown) (unknown) her anterior left (units (unknown) date) lower galeano that unknown) runs from the upper galeano to just above the (unknown) (no (unknown) (unknown) her paresthesias, (units (unknown) date) she does ambulate unknown) on her leg normally and ambulation is (unknown) (no (unknown) (unknown) increasing the (units (unknown) date) pain, she has unknown) normal plantar flexion and dorsiflexion with no (unknown) (no (unknown) (unknown) injury with (units (un known) date) hardware, tissue unknown) loss and skin grafts and developed DVT in December (unknown) (no (unknown) (unknown) intact with no (units (unknown) date) obvious signs of unknown) infection. Patient did have infections of her (unknown) (no (unknown) (unknown) is new. She has (units (unknown) date) not had any fevers unknown) or chills. No chest pain or shortness of (unknown) (no (unknown) (unknown) is no warmth, (units ( unknown) date) erythema, unknown) ecchymosis or skin changes appreciated. Patient has cap (unknown) (no (unknown) (unknown) laterally and at (units (unknown) date) the ankle. Patient unknown) states she has appreciated maybe some (unknown) (no (unknown) (unknown) legs and was on (units (unknown) date) oral antibiotics unknown) but states never was on IV antibiotics for a (unknown) (no (unknown) (unknown) moist mucous (units (u nknown) date) membranes unknown) (unknown) (no (unknown) (unknown) naproxen 500 mg (units (unknown) date) tablet 500 mg PO unknown) BID #30 tabs 10/17/18 (unknown) (no (unknown) (unknown) naproxen 500 mg (units (unknown) date) tablet unknown) (unknown) (no (unknown) (unknown) not appreciated (units (unknown) date) any skin changes, unknown) redness, there has not been any drainage, (unknown) (no (unknown) (unknown) occasional (units (unk nown) date) marijuana but no unknown) other illicit or IV drugs. She is accompanied by a (unknown) (no (unknown) (unknown) of 2020 and has (units (unknown) date) completed her unknown) anticoagulation regimen in March. Patient (unknown) (no (unknown) (unknown) of motion of the (units (unknown) date) leg. No pallor or unknown) cyanosis of the lower extremity. (unknown) (no (unknown) (unknown) oxycodone 5 mg (units (unknown) date) tablet 5 mg PO QID unknown) PRN pain #20 tabs 12/03/21 (unknown) (no (unknown) (unknown) oxycodone 5 mg (units (unknown) date) tablet unknown) (unknown) (no (unknown) (unknown) part, loosen the (units (unknown) date) splint by unknown) loosening the SANTI wrap, and either see your doctor (unknown) (no (unknown) (unknown) patient because (units (unknown) date) she is unknown) developmentally delayed child over crutches, walking (unknown) (no (unknown) (unknown) prolonged period. (units (unknown) date) Plan for labs, unknown) obtain culture, ultrasound rule out DVT and x (unknown) (no (unknown) (unknown) quit status: (units (u nknown) date) considering unknown) quitting (off an on. Denies smoking cessation handout. (unknown) (no (unknown) (unknown) ray to evaluate (units (unknown) date) hardware. unknown) Patient's ankle x-ray does show a fibular fracture, (unknown) (no (unknown) (unknown) recall injury (units ( unknown) date) hardware does unknown) appear to be in place. Walker which is referable to (unknown) (no (unknown) (unknown) refill less than (units (unknown) date) 2 seconds unknown) bilateral lower extremities. Patient has sensation (unknown) (no (unknown) (unknown) second hand (units (un known) date) exposure: No unknown) (unknown) (no (unknown) (unknown) slightly (units (unkno wn) date) increased swelling unknown) over the skin graft very slowly over time. She has (unknown) (no (unknown) (unknown) states that she (units (unknown) date) has had some unknown) chronic pain and paresthesias but this morning (unknown) (no (unknown) (unknown) substance use (units ( unknown) date) type: marijuana unknown) ('smoke, daily') (unknown) (no (unknown) (unknown) tachypnea (units (unkn own) date) accessory muscle unknown) use. (unknown) (no (unknown) (unknown) the actual report (units (unknown) date) but was faxed over unknown) there was a technical difficulty and it (unknown) (no (unknown) (unknown) there has not (units ( unknown) date) been any warmth. unknown) Patient does not recall any recent trauma that (unknown) (no (unknown) (unknown) to light touch. (units (unknown) date) She has normal unknown) plantar and dorsiflexion as well as full range (unknown) (no (unknown) (unknown) tobacco type: (units ( unknown) date) cigarettes unknown) (unknown) (no (unknown) (unknown) urgent (units (unkno wn) date) re-assessment, or unknown) return to the Emergency Department. (unknown) (no (unknown) (unknown) well. (units (unkno wn) date) unknown) Result panel 9 (unknown) (no date) (unknown) (unknown) Detected (units (unkn own) unknown) (unknown) (no date) (unknown) (unknown) Not Detected (units ( unknown) unknown) Result panel 10 (unknown) (no (unknown) (unknown) (no value) (units (unk nown) date) unknown) (unknown) (no (unknown) (unknown) Further Workup Upon (unit s (unknown) date) Request unknown) (unknown) (no (unknown) (unknown) DARIEL (units (unkno wn) date) unknown) (unknown) (no (unknown) (unknown) Gram positive cocci (unit s (unknown) date) unknown) (unknown) (no (unknown) (unknown) Isolated in Aerobic (unit s (unknown) date) Bottle only unknown) (unknown) (no (unknown) (unknown) Only one blood (units (unknown) date) culture bottle unknown) positive; therefore, (unknown) (no (unknown) (unknown) STASPEStaphylococcus (uni ts (unknown) date) species unknown) (unknown) (no (unknown) (unknown) comes up positive, or (un its (unknown) date) requested by the unknown) physician. (unknown) (no (unknown) (unknown) sensitivities will (units (unknown) date) not be set up unless unknown) the second bottle Result panel 11 (unknown) (no date) (unknown) (unknown) (no value) (units (un known) unknown) (unknown) (no date) (unknown) (unknown) NO GROWTH (units (unk nown) AFTER 24 unknown) HOURS Result panel 12 (unknown) (no (unknown) (unknown) (no value) (units (unk nown) date) unknown) (unknown) (no (unknown) (unknown) DARIEL (units (unkno wn) date) unknown) (unknown) (no (unknown) (unknown) Gram positive cocci (unit s (unknown) date) unknown) (unknown) (no (unknown) (unknown) Identification and (units (unknown) date) Sensitivity to Follow unknown) (unknown) (no (unknown) (unknown) Isolated in Aerobic (unit s (unknown) date) Bottle only unknown) (unknown) (no (unknown) (unknown) Only one blood (units (unknown) date) culture bottle unknown) positive; therefore, (unknown) (no (unknown) (unknown) STASPEStaphylococcus (uni ts (unknown) date) species unknown) (unknown) (no (unknown) (unknown) comes up positive, or (un its (unknown) date) requested by the unknown) physician. (unknown) (no (unknown) (unknown) sensitivities will (units (unknown) date) not be set up unless unknown) the second bottle Result panel 13 (unknown) (no date) (unknown) (unknown) (no value) (units (un known) unknown) (unknown) (no date) (unknown) (unknown) NO GROWTH (units (unk nown) AFTER 48 unknown) HOURS Result panel 14 (unknown) (no (unknown) (unknown) (no value) (units (unk nown) date) unknown) (unknown) (no (unknown) (unknown) DARIEL (units (unkno wn) date) unknown) (unknown) (no (unknown) (unknown) Gram positive cocci (unit s (unknown) date) unknown) (unknown) (no (unknown) (unknown) Identification and (units (unknown) date) Sensitivity to Follow unknown) (unknown) (no (unknown) (unknown) Isolated in Aerobic (unit s (unknown) date) Bottle only unknown) (unknown) (no (unknown) (unknown) Only one blood (units (unknown) date) culture bottle unknown) positive; therefore, (unknown) (no (unknown) (unknown) STASPEStaphylococcus (uni ts (unknown) date) species unknown) (unknown) (no (unknown) (unknown) comes up positive, or (un its (unknown) date) requested by the unknown) physician. (unknown) (no (unknown) (unknown) sensitivities will (units (unknown) date) not be set up unless unknown) the second bottle Result panel 15 (unknown) (no (unknown) (unknown) (no value) (units (unk nown) date) unknown) (unknown) (no (unknown) (unknown) >=8 (units (unkno wn) date) unknown) (unknown) (no (unknown) (unknown) <=0.12 (units (unkno wn) date) unknown) (unknown) (no (unknown) (unknown) <=0.25 (units (unkno wn) date) unknown) (unknown) (no (unknown) (unknown) <=0.5 (units (unkno wn) date) unknown) (unknown) (no (unknown) (unknown) <=10 (units (unkno wn) date) unknown) (unknown) (no (unknown) (unknown) 0.25 (units (unkno wn) date) unknown) (unknown) (no (unknown) (unknown) 1 (units (unkno wn) date) unknown) (unknown) (no (unknown) (unknown) 2 (units (unkno wn) date) unknown) (unknown) (no (unknown) (unknown) DARIEL (units (unkno wn) date) unknown) (unknown) (no (unknown) (unknown) Gram positive cocci (unit s (unknown) date) unknown) (unknown) (no (unknown) (unknown) Isolated in Aerobic (unit s (unknown) date) Bottle only unknown) (unknown) (no (unknown) (unknown) NEGATIVE (units (unkno wn) date) unknown) (unknown) (no (unknown) (unknown) STAHSHStaphylococcus (uni ts (unknown) date) hominis ssp fifi unknown) Result panel 16 (unknown) (no date) (unknown) (unknown) (no value) (units (un known) unknown) (unknown) (no date) (unknown) (unknown) NO GROWTH (units (unk nown) AFTER 72 unknown) HOURS Result panel 17 (unknown) (no date) (unknown) (unknown) (no value) (units (un known) unknown) (unknown) (no date) (unknown) (unknown) NO GROWTH (units (unk nown) AFTER 4 DAYS unknown) Result panel 18 (unknown) (no date) (unknown) (unknown) (no value) (units (un known) unknown) (unknown) (no date) (unknown) (unknown) NO GROWTH (units (unk nown) AFTER 5 DAYS unknown) Social History No information. Vital Signs No information.
[2021-12-21] MEDS: ONDANSETRON ODT 4 MG TABLET TL STA (19:55)
[2021-12-21] MEDS: HYDROcod/ACETAM 5/325 MG TABLET PO STA ×2 (19:56→22:02)
--- NOTE | 2021-12-21 20:30 | Ultrasound Report ---
PROCEDURE: Duplex Ext Veins Left INDICATIONS: pain/swelling TECHNIQUE: Real-time imaging, as well as color and pulse Doppler interrogation, were performed of the lower extr emity deep veins from the inguinal ligament to the popliteal fossa. COMPARISON: 02/10/2021. FINDINGS: The deep veins are normally compressible, and free of intraluminal thrombus. Color and pu lse Doppler demonstrate normal phasic intraluminal flow. There is normal augmentation response to di stal compression maneuver. IMPRESSION: 1. No evidence of deep venous thrombosis in the left lower extremity. Reviewed by: Mike Mcnair MD on 12/21/2021 8:28 PM PDT Approved by: Mike Mcnair MD on 12/21/2021 8:28 PM PDT Station ID: [id number]
--- NOTE | 2021-12-21 21:30 | XRAY Report ---
PROCEDURE: Ankle 3 View LT INDICATIONS: ankle fx, worsening pain/swelling TECHNIQUE: 3 views of the ankle were acquired. COMPARISON: 06/28/2020 FINDINGS: Bones: No acute fractures or dislocations. There are extensive postsurgical changes status post MANDY F of prior fractures in the visualized distal tibia. The visualized surgical hardware appears intact. No definite associated suspicious lucencies. No discrete bony erosions. Ankle mortise appears normal ly aligned. No suspicious bony lesions. Soft tissues: No tibiotalar joint effusion. Achilles tendon appears normal. IMPRESSION: 1. Extensive postsurgical changes demonstrated within the visualized distal tibia consistent with rj or ORIF of multiple fractures. No acute fracture or dislocation. No definite evidence of hardware deuce lure. Reviewed by: Mike Mcnair MD on 12/21/2021 9:29 PM PDT Approved by: Mike Mcnair MD on 12/21/2021 9:29 PM PDT Station ID: [id number]
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
[2021-12-21 22:04] VITALS: BP 111/94
== END 2021-12-21 22:08 | disposition home or self-care (01) ==
LOC: ED 18:44
DX: M25.572 Pain in left ankle and joints of left foot (principal)
CPT/HCPCS: 73610; 93971; 99282; 99284; A9270

== ENCOUNTER 2022-02-18 07:12 | Emergency (ER) | payer OTHER, MEDICAID ==
[2022-02-18 07:22] VITALS: BP 146/109
--- NOTE | 2022-02-18 07:32 | ED Physician Documentation ---
PD HPI FEMALE - Stated complaint Stated Complaint: FEMALE - Chief complaint Chief Complaint: UTI - History obtained from History obtained from: Patient - History of Present Illness Timing - onset: Yesterday Timing - duration: Days (1) Timing - details: Abrupt onset, Still present Associated symptoms: Dysuria, Urinary frequency, Hematuria. No: Fever, Vaginal discharge, Genital sore/lesion Contributing factors: No: Exposed to STD Similar symptoms before: Diagnosis (UTI) Recently seen: Not recently seen Review of Systems Constitutional: denies: Fever, Chills GI: reports: Nausea. denies: Abdominal Pain, Vomiting, Diarrhea Skin: denies: Rash, Lesions PD PAST MEDICAL HISTORY - Past Medical History Cardiovascular: None Respiratory: None Neuro: Migraines Endocrine/Autoimmune: None GI: None PERINATAL DIRECTOR: None : Other HEENT: None Psych: None Musculoskeletal: Chronic back pain Derm: None - Past Surgical History Past Surgical History: Yes General: Appendectomy /PERINATAL DIRECTOR: Tubal ligation, Other - Present Medications Home Medications: Ambulatory Orders Medication Instructions Recorded Confirmed Ondansetron Odt [Zofran Odt] 4 mg TL Q6H PRN #10 tablet 08/25/20 Oxycodone HCl/Acetaminophen 1 - 2 each PO Q6H PRN #14 tablet 01/02/21 [Percocet 5-325 mg Tablet] Apixaban [Eliquis] 5 mg PO BID #74 tablet 02/10/21 HYDROcod/ACETAM 5/325 [[place] 5/325] 1 - 2 tablet PO Q6H PRN #14 tablet 12/21/21 Ondansetron Odt [Zofran] 4 mg TL Q6H PRN #10 tablet 02/18/22 cephALEXin [Keflex] 500 mg PO QID 7 Days #28 cap 02/18/22 - Allergies Allergies/Adverse Reactions: Allergies Allergy/AdvReac Type Severity Reaction Status Date / Time sumatriptan [From Imitrex] Allergy Hives Verified 02/18/22 07:22 - Social History Does the pt smoke?: No Smoking Status: Never smoker Does the pt drink ETOH?: Yes Does the pt have substance abuse?: No - Immunizations Immunizations are current?: Yes - POLST Patient has POLST: No PD ED PE NORMAL - Vitals Vital signs reviewed: Yes - General General: Alert and oriented X 3, No acute distress, Well developed/nourished - Abdomen Abdomen: Soft, Non tender - Female Female : Deferred - Back Back: No CVA TTP - Derm Derm: Normal color, Warm and dry Results - Vitals Vitals: Oxygen O2 Source Room air - Labs Labs: Microbiology 02/18/22 07:31 Urine Culture - Preliminary Urine,Random Escherichia Coli Laboratory Tests 02/18/22 07:31 Urine Color YELLOW Urine Clarity CLEAR Urine pH 6.0 Ur Specific [place] 1.025 Urine Protein NEGATIVE Urine Glucose (UA) NEGATIVE Urine Ketones NEGATIVE Urine Occult Blood MODERATE H Urine Nitrite POSITIVE H Urine Bilirubin NEGATIVE Urine Urobilinogen 0.2 (NORMAL) Ur Leukocyte Esterase NEGATIVE Urine RBC 6-10 H Urine WBC 11-25 H Ur Squamous Epith Cells FEW Squamous Urine Bacteria Moderate H Ur Microscopic Review INDICATED Urine Culture Comments INDICATED Urine HCG, Qual NEGATIVE PD MEDICAL DECISION MAKING - ED course Complexity details: considered differential (symptoms of UTI and UA c/w that. ), d/w patient Departure - Departure Disposition: 01 Home, Self Care Clinical Impression: UTI (urinary tract infection) Condition: Stable Record reviewed to determine appropriate education?: Yes Instructions: ED UTI Cystitis Female Prescriptions: cephALEXin [Keflex] 500 mg PO QID 7 Days #28 cap Ondansetron Odt [Zofran] 4 mg TL Q6H PRN #10 tablet PRN Reason: Nausea / Vomiting Comments: Your urine test just resulted here and confirms your symptoms of urinary tract infection. Cephalexin 4 times daily for the next 7 days for this infection. We will culture the urine and will result in a day or 2 and we will call you if we need to modify the antibiotic choice based on the culture. Stay well-hydrated. Tylenol every 4-6 hours if needed for pain or fevers. Ondansetron if needed for nausea. Recheck if not improving well over the next 2 to 3 days return if worsening. I transmitted your prescriptions to [facility] pharmacy. Discharge Date/Time: 02/18/22 08:08
[2022-02-18 07:36] LABS: BILIRUBIN,URINE NEGATIVE (NEGATIVE); GLUCOSE, URINE (UA) NEGATIVE (NEGATIVE); KETONES,URINE (UA) NEGATIVE (NEGATIVE); LEUKOCYTE ESTERASE, URINE NEGATIVE (NEGATIVE); NITRITE,URINE POSITIVE (NEGATIVE); OCCULT BLOOD,URINE MODERATE (NEGATIVE); PROTEIN,URINE NEGATIVE (NEGATIVE); UROBILINOGEN,URINE 0.2 (NORMAL) E.U./dL (NORMAL)
[2022-02-18 07:54] LABS: CLARITY,URINE CLEAR (CLEAR); HCG UR QUAL NEGATIVE
[2022-02-18 07:55] LABS: BACTERIA,URINE Moderate /HPF (None Seen); SQUAMOUS EPITHELIAL CELL,UR FEW Squamous (<= Few)
[2022-02-18] MEDS ORDERED: cephALEXin 250 MG CAPSULE PO STA (07:59)
[2022-02-18] MEDS ORDERED: IBUPROFEN 600 MG TABLET PO STA (08:00)
== END 2022-02-18 08:08 | disposition home or self-care (01) ==
LOC: ED 07:12
DX: N39.0 Urinary tract infection, site not specified (principal)
CPT/HCPCS: 81001; 81025; 87086; 87181; 99283; A9270; 81003

== ENCOUNTER 2022-06-28 03:13 | Emergency (ER) | payer OTHER, MEDICAID ==
[2022-06-28] MEDS ORDERED: diphenhydrAMINE INJ 50 MG/ML VIAL IVP STA (03:22)
[2022-06-28] MEDS ORDERED: KETOROLAC 30 MG/ML VIAL IVP STA (03:22)
[2022-06-28] MEDS ORDERED: SODIUM CHLORIDE 0.9% 1,000 ML IV STA (03:23)
[2022-06-28] MEDS ORDERED: METOCLOPRAMIDE 10 MG/2 ML VIAL IVP STA (03:23)
[2022-06-28] MEDS ORDERED: DEXAMETHASONE 10 MG/ML VIAL IVP STA (03:23)
--- OUTSIDE RECORDS SUMMARY | 2022-06-28 03:24 | EXTERNAL MEDICAL SUMMARY RPT | Continuity of Care Document ---
:1980 Author Organization [facility] Address [address] [place] [address] Phone Allergies No information. Encounters No information. Functional Status No information. Immunizations No information. Medications No information. Problems date description facility 2022-05-02 15:37 Pain in [facility] Procedures No information. Results/Labs No information. Social History No information. Vital Signs No information.
[2022-06-28] MEDS ORDERED: HYDROmorphone 1 MG/ML CARPUJECT IVP STA (05:13)
--- NOTE | 2022-06-28 06:21 | ED Physician Documentation ---
PD HPI HEADACHE - Stated complaint Stated Complaint: V/N - Chief complaint Chief Complaint: Neuro - History obtained from History obtained from: Patient - History of Present Illness Worst headache ever?: No: Worst headache ever? Location: Global Quality: Throbbing, Aching Associated symptoms: Nausea. No: Fever, Stiff neck, Vomiting, Weakness, Numbness Improved by: Rest, Dark room Worsened by: Light, Noise - Additional information Additional information: HPI from patient. She c/o global headache, rapid onset 6 pm yesterday while at home at rest. She says this feels like one of her typical migraines. She has been to this ED many times for migraine headaches in the past and that usually one round of medications provide some degree of relief which also tends to indicate the beginning of the end of that particular migraine headache. She says there has been no success with various outpatient prescription migraine medications to abort/treat her migraines at home. She says when she gets migraine headaches, "I just come here because nothing else helps except what you guys give me here". She does not name specific medications when I ask what medications help her here. She says it is typically three medications, and one of them is benadryl. Review of Systems Constitutional: denies: Fever, Chills, Sweats Eyes: reports: Photophobia. 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: None : Other HEENT: None Psych: None Musculoskeletal: Chronic back pain Derm: None - Past Surgical History Past Surgical History: Yes General: Appendectomy /PUBLIC WORKS COMMISSIONER: Tubal ligation, Other - Present Medications Home Medications: Ambulatory Orders Medication Instructions Recorded Confirmed Ondansetron Odt [Zofran Odt] 4 mg TL Q6H PRN #10 tablet 08/25/20 Oxycodone HCl/Acetaminophen 1 - 2 each PO Q6H PRN #14 tablet 01/02/21 [Percocet 5-325 mg Tablet] Apixaban [Eliquis] 5 mg PO BID #74 tablet 02/10/21 HYDROcod/ACETAM 5/325 [[place] 5/325] 1 - 2 tablet PO Q6H PRN #14 tablet 12/21/21 Ondansetron Odt [Zofran] 4 mg TL Q6H PRN #10 tablet 02/18/22 cephALEXin [Keflex] 500 mg PO QID 7 Days #28 cap 02/18/22 Butalb/Acetam/Caff 50/325/40 1 each PO Q4-6H PRN #20 tablet 06/28/22 [Fioricet] Metoclopramide [Reglan] 10 mg PO Q6H PRN #20 tablet 06/28/22 - Allergies Allergies/Adverse Reactions: Allergies Allergy/AdvReac Type Severity Reaction Status Date / Time sumatriptan [From Imitrex] Allergy Hives Verified 02/18/22 07:22 - Social History Does the pt smoke?: No Smoking Status: Never smoker Does the pt drink ETOH?: Yes Does the pt have substance abuse?: No - Immunizations Immunizations are current?: Yes - POLST Patient has POLST: No PD ED PE NORMAL - Vitals Vital signs reviewed: Yes - General General: Alert and oriented X 3, Well developed/nourished, Other (lights off in room for patient comfort, and she is staying under covers due to photophobia. she is awake, alert, and conversant, polite and answers questions rapidly and articulately) - HEENT HEENT: Atraumatic, PERRL, Moist mucous membranes - Neck Neck: Supple, no meningeal sign - Cardiac Cardiac: RRR, No murmur - Respiratory Respiratory: No respiratory distress, Clear bilaterally - Abdomen Abdomen: Soft, Non tender - Neuro Neuro: Alert and oriented X 3, venture capital analyst 2-12 intact, No motor deficit, No sensory deficit, Normal speech Eye Opening: Spontaneous Motor: Obeys Commands Verbal: Oriented GCS Score: 15 Results - Vitals Vitals: Oxygen O2 Source Room air PD Medical Decision Making - ED course Complexity details: reviewed old records, reviewed results, re-evaluated patient, considered differential, d/w patient ED course: presents to ED with QUIÑONEZ that she says is typical for her migraine headache. IV established and she is given 1 liter NS IV bolus, 25mg IV benadryl, 30mg IV toradol, 10mg IV decadron (lower odds of "bounce-back"/rebound headache), and 10mg IV reglan. On reevaluation , she is resting quietly , says nausea has resolved, though still has 6/10 headache. She is given 1 mg IV dilaudid, and on reevaluation , she says she is pain-free and asymptomatic and requests d/c home. We discussed options for prescriptions to help control any residual or recurrent headache, and she says that, in the past, fioricet has helped substantially and thus I electronically submitted prescriptions for fioricet and metaclopramide to her pharmacy of choice. Departure - Departure Disposition: Home, Self Care Clinical Impression: Migraine Qualifiers: Migraine type: unspecified Status migrainosus presence: without status migrainosus Intractability: not intractable Qualified Code(s): G43.909 - Migraine, unspecified, not intractable, without status migrainosus Condition: Good Instructions: ED Headache Migraine Prescriptions: Butalb/Acetam/Caff 50/325/40 [Fioricet] 1 each PO Q4-6H PRN #20 tablet PRN Reason: Headache Metoclopramide [Reglan] 10 mg PO Q6H PRN #20 tablet PRN Reason: Nausea / Vomiting Comments: Prescriptions for metoclopramide (antinausea medication) and Fioricet (migraine medication) have been electronically submitted to [facility] pharmacy in [place]. Discharge Date/Time: 06/28/22 06:38
[2022-06-28 06:38] VITALS: BP 137/90
== END 2022-06-28 06:38 | disposition home or self-care (01) ==
LOC: ED 03:13
DX: G43.909 Migraine, unspecified, not intractable, without status migrainosus (principal)
CPT/HCPCS: 96374; 96375; 99283; J1170; J1200; J2765

== ENCOUNTER 2022-07-01 06:41 | Emergency (ER) | payer OTHER, MEDICAID ==
--- OUTSIDE RECORDS SUMMARY | 2022-07-01 07:00 | EXTERNAL MEDICAL SUMMARY RPT | Continuity of Care Document ---
:1980 Author Organization [facility] Address [address] [place] [address] Phone Allergies No information. Encounters No information. Functional Status No information. Immunizations No information. Medications No information. Problems date description facility 2022-05-02 15:37 Pain in [facility] Procedures No information. Results/Labs No information. Social History No information. Vital Signs No information.
--- NOTE | 2022-07-01 07:31 | ED Physician Documentation ---
PD HPI HEADACHE - Stated complaint Stated Complaint: MIGRANE/NAUSEA - Chief complaint Chief Complaint: Neuro - History obtained from History obtained from: Patient - History of Present Illness Timing - onset: Last night Timing - onset during: Light activity Timing - duration: Days (1) Timing - details: Gradual onset, Still present Worst headache ever?: No: Worst headache ever? Location: Global Quality: Throbbing, Aching Associated symptoms: Nausea, Vomiting, Vision changes (light sensitive). No: Fever, Stiff neck Improved by: Rest, Dark room. No: Meds (tried her usual PO meds for this and did not work.) Worsened by: Light, Noise Recently seen: Emergency Dept (3 days ago with similar, but was months before for prior one. Generally spaced several months apart.) Review of Systems Constitutional: denies: Fever Eyes: reports: Photophobia. denies: Loss of vision Nose: denies: Rhinorrhea / runny nose Throat: denies: Sore throat Respiratory: denies: Cough GI: reports: Nausea, Vomiting. denies: Abdominal Pain, Diarrhea Musculoskeletal: reports: Neck pain. 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: None : Other HEENT: None Psych: None Musculoskeletal: Chronic back pain Derm: None - Past Surgical History Past Surgical History: Yes General: Appendectomy /BATCH OPERATOR: Tubal ligation, Other - Present Medications Home Medications: Ambulatory Orders Medication Instructions Recorded Confirmed Ondansetron Odt [Zofran Odt] 4 mg TL Q6H PRN #10 tablet 08/25/20 Oxycodone HCl/Acetaminophen 1 - 2 each PO Q6H PRN #14 tablet 01/02/21 [Percocet 5-325 mg Tablet] Apixaban [Eliquis] 5 mg PO BID #74 tablet 02/10/21 HYDROcod/ACETAM 5/325 [[place] 5/325] 1 - 2 tablet PO Q6H PRN #14 tablet 12/21/21 Ondansetron Odt [Zofran] 4 mg TL Q6H PRN #10 tablet 02/18/22 cephALEXin [Keflex] 500 mg PO QID 7 Days #28 cap 02/18/22 Butalb/Acetam/Caff 50/325/40 1 each PO Q4-6H PRN #20 tablet 06/28/22 [Fioricet] Metoclopramide [Reglan] 10 mg PO Q6H PRN #20 tablet 06/28/22 - Allergies Allergies/Adverse Reactions: Allergies Allergy/AdvReac Type Severity Reaction Status Date / Time sumatriptan [From Imitrex] Allergy Hives Verified 07/01/22 07:00 - Social History Does the pt smoke?: No Smoking Status: Never smoker Does the pt drink ETOH?: Yes Does the pt have substance abuse?: No - Immunizations Immunizations are current?: Yes - POLST Patient has POLST: No PD ED PE NORMAL - Vitals Vital signs reviewed: Yes - General General: Alert and oriented X 3, Well developed/nourished, Other (in room with lights out and noises at [facility]) - HEENT HEENT: Atraumatic - Neck Neck: Supple, no meningeal sign, No adenopathy - Derm Derm: Normal color, Warm and dry - Neuro Neuro: Alert and oriented X 3, No motor deficit, Normal speech Results - Vitals Vitals: Vital Signs - 24 hr 07/01/22 07/01/22 06:56 08:59 Temperature 36.8 C 36.6 C Heart Rate 75 64 Respiratory 20 16 Rate Blood Pressure 137/95 H 112/99 H O2 Saturation 99 98 Oxygen O2 Source Room air - Labs Labs: Laboratory Tests 07/01/22 08:00 POC Whole Bld Glucose 99 PD Medical Decision Making - ED course Complexity details: reviewed old records (intermittent prior ED visits. ), re- evaluated patient (improved headache to nearly gone now,and she feels comfortable to go home and rest/sleep there. ), considered differential (seems like her regular migraine. ), d/w patient Departure - Departure Disposition: 01 Home, Self Care Clinical Impression: Migraine headache Condition: Stable Record reviewed to determine appropriate education?: Yes Instructions: ED Headache Migraine Comments: Continue with your usual medications diet and activity. Return as needed. Discharge Date/Time: 07/01/22 09:00
[2022-07-01] MEDS ORDERED: KETOROLAC 15 MG/ML VIAL IVP STA (07:37)
[2022-07-01] MEDS ORDERED: SODIUM CHLORIDE 0.9% 1,000 ML IV STA (07:37)
[2022-07-01] MEDS ORDERED: PROCHLORPERAZINE 10 MG/2 ML VIAL IVP STA (07:37)
[2022-07-01] MEDS ORDERED: diphenhydrAMINE INJ 50 MG/ML VIAL IVP STA (07:38)
[2022-07-01 09:00] VITALS: BP 112/99
== END 2022-07-01 09:00 | disposition home or self-care (01) ==
LOC: ED 06:41
DX: G43.909 Migraine, unspecified, not intractable, without status migrainosus (principal)
CPT/HCPCS: 96374; 99282; 99283; J1200

== ENCOUNTER 2022-09-09 02:58 | Emergency (ER) | payer OTHER, MEDICAID ==
--- NOTE | 2022-09-09 04:04 | ED Physician Documentation ---
PD HPI HEADACHE - Stated complaint Stated Complaint: HEADACHE/NAUSEA - Chief complaint Chief Complaint: Neuro - History obtained from History obtained from: Patient - History of Present Illness Worst headache ever?: No: Worst headache ever? Location: Global - Additional information Additional information: HPI from patient. Patient was woken from sleep at approximately 2:30 AM this morning with a global headache associate with nausea, vomiting, and photophobia. She says this is consistent with her previous migraine headaches for which she has had previous ED visits. She says she took Tylenol and Benadryl without relief. Review of Systems Constitutional: denies: Fever GI: reports: Nausea, Vomiting. 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 : Other HEENT: None Psych: None Musculoskeletal: Chronic back pain Derm: None - Past Surgical History Past Surgical History: Yes General: Appendectomy /PHYSICS FACULTY MEMBER: Tubal ligation, Other - Present Medications Home Medications: Ambulatory Orders Medication Instructions Recorded Confirmed Ondansetron Odt [Zofran Odt] 4 mg TL Q6H PRN #10 tablet 08/25/20 Oxycodone HCl/Acetaminophen 1 - 2 each PO Q6H PRN #14 tablet 01/02/21 [Percocet 5-325 mg Tablet] Apixaban [Eliquis] 5 mg PO BID #74 tablet 02/10/21 HYDROcod/ACETAM 5/325 [[place] 5/325] 1 - 2 tablet PO Q6H PRN #14 tablet 12/21/21 Ondansetron Odt [Zofran] 4 mg TL Q6H PRN #10 tablet 02/18/22 cephALEXin [Keflex] 500 mg PO QID 7 Days #28 cap 02/18/22 Butalb/Acetam/Caff 50/325/40 1 each PO Q4-6H PRN #20 tablet 06/28/22 [Fioricet] Metoclopramide [Reglan] 10 mg PO Q6H PRN #20 tablet 06/28/22 Metoclopramide [Reglan] 10 mg PO Q6H PRN #30 tablet 09/09/22 - Allergies Allergies/Adverse Reactions: Allergies Allergy/AdvReac Type Severity Reaction Status Date / Time sumatriptan [From Imitrex] Allergy Hives Verified 09/11/22 10:25 - Social History Does the pt smoke?: No Smoking Status: Never smoker Does the pt drink ETOH?: Yes Does the pt have substance abuse?: No - Immunizations Immunizations are current?: Yes - POLST Patient has POLST: No PD ED PE NORMAL - Vitals Vital signs reviewed: Yes - General General: Alert and oriented X 3, Well developed/nourished, Other (appears to be uncomfortable, moderate painful distress with lights out for patient comfort and she has blanket covering her eyes) - HEENT HEENT: PERRL - Neck Neck: Supple, no meningeal sign - Cardiac Cardiac: RRR, No murmur - Respiratory Respiratory: No respiratory distress, Clear bilaterally - Abdomen Abdomen: Soft, Non tender - Neuro Neuro: Alert and oriented X 3, electronics manufacturer 2-12 intact, No motor deficit, No sensory deficit, Normal speech Eye Opening: Spontaneous Motor: Obeys Commands Verbal: Oriented GCS Score: 15 Results - Vitals Vitals: Oxygen O2 Source Room air PD Medical Decision Making - ED course Complexity details: re-evaluated patient, considered differential, d/w patient ED course: IVs established and patient was given 1 L of normal saline intravenously as well as 1 mg of Dilaudid, 10 mg of Compazine, 25 mg of Benadryl, 10 mg of Decadron, and 30 mg of Toradol.No labs were undertaken, as patient says these symptoms are consistent with her migraine headache. On reevaluation after his medications are given, patient is drowsy but easily awakens to voice. She is no longer covering her eyes, and she reports feeling significant improvement, enough to be comfortable with discharge home at this time. I asked if she has antinausea medications at home, and she says she recently ran out of the antinausea medication that I wrote for her on her previous visit 2 months ago. Checking the computer records, it appears that I had provided her prescription for metoclopramide. Patient tells me that this seemed to help with her migraines, nausea and vomiting. I electronically submitted a prescription for metoclopramide to patient's pharmacy of choice. Departure - Departure Disposition: 01 Home, Self Care Clinical Impression: Migraine Qualifiers: Migraine type: without aura Status migrainosus presence: without status migrainosus Intractability: not intractable Qualified Code(s): G43.009 - Migraine without aura, not intractable, without status migrainosus Condition: Good Instructions: ED Headache Migraine Prescriptions: Metoclopramide [Reglan] 10 mg PO Q6H PRN #30 tablet PRN Reason: Nausea / Vomiting Comments: I have electronically submitted a prescription for Reglan (metoclopramide, antinausea medication) to the [facility] pharmacy in [place]. Discharge Date/Time: 09/09/22 06:24
[2022-09-09] MEDS ORDERED: SODIUM CHLORIDE 0.9% 1,000 ML IV STA (04:18)
[2022-09-09] MEDS ORDERED: HYDROmorphone 1 MG/ML CARPUJECT IVP STA (04:18)
[2022-09-09] MEDS ORDERED: PROCHLORPERAZINE 10 MG/2 ML VIAL IVP STA (04:18)
[2022-09-09] MEDS ORDERED: diphenhydrAMINE INJ 50 MG/ML VIAL IVP STA (04:19)
[2022-09-09] MEDS ORDERED: KETOROLAC 30 MG/ML VIAL IVP STA (04:19)
[2022-09-09] MEDS ORDERED: DEXAMETHASONE 10 MG/ML VIAL IVP STA (04:19)
[2022-09-09 06:24] VITALS: BP 123/83
== END 2022-09-09 06:24 | disposition home or self-care (01) ==
LOC: ED 02:58
DX: G43.009 Migraine without aura, not intractable, without status migrainosus (principal)
CPT/HCPCS: 96374; 96375; 99284

== ENCOUNTER 2022-09-09 22:16 | Emergency (ER) | payer OTHER, MEDICAID ==
--- NOTE | 2022-09-09 22:40 | ED Physician Documentation ---
PD HPI HEADACHE - Stated complaint Stated Complaint: MIGRAINE - Chief complaint Chief Complaint: Heent - History obtained from History obtained from: Patient - History of Present Illness Timing - onset: Today Timing - onset during: Light activity Timing - duration: Hours Timing - details: Abrupt onset, Still present Location: Front Quality: Throbbing Associated symptoms: Nausea, Vomiting. No: Fever, Stiff neck, Weakness, Numbness, Syncope, Seizure, Eye pain, Vision changes Improved by: Rest, Dark room, Quiet, Meds Worsened by: Light, Noise, Moving Contributing factors: Other (stress). No: Anticoagulated, Possible carbon monoxide, Hypertension, Recent illness, Trauma Similar symptoms before: Diagnosis (migraine) Recently seen: Emergency Dept (seen earlier today) - Additional information Additional information: Crystal Gallagher is a 41-year-old female with a history of migraine headaches who was seen in the emergency department earlier today with a migraine and given a migraine cocktail with success. She was at home this evening after spending the day with her special needs daughter when she had sudden onset of recurrence of her symptoms with a severe headache that came on rapidly and has involved nausea and vomiting as well. Review of Systems Constitutional: denies: Fever, Chills Eyes: reports: Photophobia. denies: Decreased vision Ears: denies: Ear pain Nose: denies: Rhinorrhea / runny nose, Congestion Throat: denies: Sore throat Cardiac: denies: Chest pain / pressure, Palpitations Respiratory: denies: Dyspnea, Cough GI: reports: Nausea, Vomiting. denies: Abdominal Pain : denies: Dysuria, Frequency Skin: denies: Rash Musculoskeletal: denies: Neck pain, Back pain, Extremity pain Neurologic: reports: Headache. 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 : Other HEENT: None Psych: None Musculoskeletal: Chronic back pain Derm: None - Past Surgical History Past Surgical History: Yes General: Appendectomy /CONFIGURATION MANAGEMENT MANAGER: Tubal ligation, Other - Present Medications Home Medications: Ambulatory Orders Medication Instructions Recorded Confirmed Ondansetron Odt [Zofran Odt] 4 mg TL Q6H PRN #10 tablet 08/25/20 Oxycodone HCl/Acetaminophen 1 - 2 each PO Q6H PRN #14 tablet 01/02/21 [Percocet 5-325 mg Tablet] Apixaban [Eliquis] 5 mg PO BID #74 tablet 02/10/21 HYDROcod/ACETAM 5/325 [[place] 5/325] 1 - 2 tablet PO Q6H PRN #14 tablet 12/21/21 Ondansetron Odt [Zofran] 4 mg TL Q6H PRN #10 tablet 02/18/22 cephALEXin [Keflex] 500 mg PO QID 7 Days #28 cap 02/18/22 Butalb/Acetam/Caff 50/325/40 1 each PO Q4-6H PRN #20 tablet 06/28/22 [Fioricet] Metoclopramide [Reglan] 10 mg PO Q6H PRN #20 tablet 06/28/22 Metoclopramide [Reglan] 10 mg PO Q6H PRN #30 tablet 09/09/22 - Allergies Allergies/Adverse Reactions: Allergies Allergy/AdvReac Type Severity Reaction Status Date / Time sumatriptan [From Imitrex] Allergy Hives Verified 07/01/22 07:00 - Social History Does the pt smoke?: No Smoking Status: Never smoker Does the pt drink ETOH?: Yes Does the pt have substance abuse?: No - Immunizations Immunizations are current?: Yes - POLST Patient has POLST: No PD ED PE NORMAL - Vitals Vital signs reviewed: Yes (hypertensive ) - General General: Alert and oriented X 3, Well developed/nourished - HEENT HEENT: Atraumatic, PERRL, EOMI - Neck Neck: Supple, no meningeal sign, No bony TTP - Cardiac Cardiac: RRR, No murmur - Respiratory Respiratory: No respiratory distress, Clear bilaterally - Abdomen Abdomen: Soft, Non tender - Back Back: No CVA TTP, No spinal TTP - Derm Derm: Normal color, Warm and dry, No rash - Extremities Extremities: No deformity, No edema - Neuro Neuro: Alert and oriented X 3, historiography teacher 2-12 intact, No motor deficit, No sensory deficit, Normal speech Eye Opening: Spontaneous Motor: Obeys Commands Verbal: Oriented GCS Score: 15 - Psych Psych: Normal mood, Normal affect Results - Vitals Vitals: Vital Signs - 24 hr 09/09/22 22:27 Temperature 35.5 C L Heart Rate 85 Respiratory 16 Rate Blood Pressure 169/107 H O2 Saturation 97 Oxygen O2 Source Room air PD Medical Decision Making - ED course Complexity details: reviewed old records, reviewed results, re-evaluated patient, considered differential, d/w patient ED course: 41-year-old female with a recurrent migraine headache does not usually have auras associated with her headache. She had sudden onset of her headache today similar to what she had earlier in the day and she has had some vomiting associated with this. She has had to have rescue twice in a row on her prior 2 visits. Earlier today she has been given Toradol Dilaudid Compazine Benadryl dexamethasone and saline. Tonight we will repeat her doses with the exception of the dexamethasone. The patient responded to this with an incomplete response and was administered a second dose of Dilaudid. Departure - Departure Disposition: 01 Home, Self Care Clinical Impression: Migraine Qualifiers: Migraine type: without aura Status migrainosus presence: without status migrainosus Intractability: not intractable Qualified Code(s): G43.009 - Migraine without aura, not intractable, without status migrainosus Instructions: ED Headache Migraine Follow-Up: [facility] [Provider Group] Comments: Crystal, today it looks like you have had a bad day for headaches. Usually this happens when there is a lot of stress involved.
[2022-09-09] MEDS ORDERED: HYDROmorphone 1 MG/ML CARPUJECT IVP STA ×2 (22:52→23:50)
[2022-09-09] MEDS ORDERED: KETOROLAC 30 MG/ML VIAL IVP STA (22:52)
[2022-09-09] MEDS ORDERED: SODIUM CHLORIDE 0.9% 1,000 ML IV STA (22:52)
[2022-09-09] MEDS ORDERED: PROCHLORPERAZINE 10 MG/2 ML VIAL IVP STA (22:52)
[2022-09-09] MEDS ORDERED: diphenhydrAMINE INJ 50 MG/ML VIAL IVP STA (22:53)
[2022-09-10 00:42] VITALS: BP 124/69
== END 2022-09-10 00:42 | disposition home or self-care (01) ==
LOC: ED 22:16
DX: G43.009 Migraine without aura, not intractable, without status migrainosus (principal)
CPT/HCPCS: 96374; 96375; 99284; 99285; J1170; J1200

== ENCOUNTER 2022-09-10 05:12 | Emergency (ER) | payer OTHER, MEDICAID ==
[2022-09-10] MEDS ORDERED: ONDANSETRON 4 MG/2 ML VIAL IVP STA (05:23)
[2022-09-10] MEDS ORDERED: MORPHINE 2 MG/ML CARPUJECT IVP STA ×2 (05:23→05:53)
--- NOTE | 2022-09-10 05:30 | ED Physician Documentation ---
PD HPI HEADACHE - Stated complaint Stated Complaint: N/V/HEAD PX - History obtained from History obtained from: Patient - History of Present Illness Timing - onset: Today Timing - onset during: Rest Timing - duration: Hours Timing - details: Abrupt onset, Still present Location: Front Quality: Throbbing, Aching, Like head is exploding Associated symptoms: Nausea, Vomiting. No: Fever, Stiff neck Improved by: Rest, Dark room, Quiet, Meds Worsened by: Light, Noise, Moving Contributing factors: Hypertension. No: Anticoagulated, Possible carbon monoxide, Recent illness, Trauma Similar symptoms before: Diagnosis (migraine) Recently seen: Emergency Dept (X 2 in past day) - Additional information Additional information: 41-year-old listened Jesus and has a history of migraine headaches and she has been into our emergency department a number of times for treatment. She usually responds to a single round of treatment and usually has headaches spaced months apart. Her headache in June required treatment again 3 days later. Her headache yesterday required treatment here again later in the day and this appeared successful but the patient has now returned with excessive vomiting. Review of Systems Constitutional: denies: Fever Eyes: reports: Photophobia. denies: Decreased vision Ears: denies: Ear pain Nose: denies: Rhinorrhea / runny nose, Congestion Throat: denies: Sore throat Cardiac: denies: Chest pain / pressure, Palpitations Respiratory: denies: Dyspnea, Cough GI: reports: Nausea, Vomiting. denies: Abdominal Pain : denies: Dysuria, Frequency, Discharge Musculoskeletal: denies: Neck pain, Back pain, Extremity pain Neurologic: reports: Headache. 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: Tubal ligation, Other - Present Medications Home Medications: Ambulatory Orders Medication Instructions Recorded Confirmed Ondansetron Odt [Zofran Odt] 4 mg TL Q6H PRN #10 tablet 08/25/20 Oxycodone HCl/Acetaminophen 1 - 2 each PO Q6H PRN #14 tablet 01/02/21 [Percocet 5-325 mg Tablet] Apixaban [Eliquis] 5 mg PO BID #74 tablet 02/10/21 HYDROcod/ACETAM 5/325 [[place] 5/325] 1 - 2 tablet PO Q6H PRN #14 tablet 12/21/21 Ondansetron Odt [Zofran] 4 mg TL Q6H PRN #10 tablet 02/18/22 cephALEXin [Keflex] 500 mg PO QID 7 Days #28 cap 02/18/22 Butalb/Acetam/Caff 50/325/40 1 each PO Q4-6H PRN #20 tablet 06/28/22 [Fioricet] Metoclopramide [Reglan] 10 mg PO Q6H PRN #20 tablet 06/28/22 Metoclopramide [Reglan] 10 mg PO Q6H PRN #30 tablet 09/09/22 - Allergies Allergies/Adverse Reactions: Allergies Allergy/AdvReac Type Severity Reaction Status Date / Time sumatriptan [From Imitrex] Allergy Hives Verified 09/10/22 05:29 - Social History Does the pt smoke?: No Smoking Status: Never smoker Does the pt drink ETOH?: Yes Does the pt have substance abuse?: No - Immunizations Immunizations are current?: Yes - POLST Patient has POLST: No PD ED PE NORMAL - Vitals Vital signs reviewed: Yes (hypertensive mild ) - General General: Alert and oriented X 3, Well developed/nourished, Other (appears to ) - HEENT HEENT: Atraumatic, PERRL, EOMI - Cardiac Cardiac: RRR, No murmur - Respiratory Respiratory: No respiratory distress, Clear bilaterally - Abdomen Abdomen: Soft, Non tender - Derm Derm: Normal color, Warm and dry, No rash - Extremities Extremities: No deformity, No edema - Neuro Neuro: Alert and oriented X 3, project management engineer 2-12 intact, No motor deficit, No sensory deficit, Normal speech Eye Opening: Spontaneous Motor: Obeys Commands Verbal: Oriented GCS Score: 15 - Psych Psych: Normal mood, Normal affect Results - Vitals Vitals: Vital Signs - 24 hr 09/10/22 05:20 Temperature 36.6 C Heart Rate 76 Respiratory 20 Rate Blood Pressure 122/93 H O2 Saturation 97 Oxygen O2 Source Room air - Rads (name of study) CT head without Relevant Findings:: Prelim report reviewed (Impression: 1. No acute intra cranial findings.), EMP independent interpretation of test PD Medical Decision Making - ED course Complexity details: considered differential, d/w patient ED course: 41-year-old ascended Jesus and shows back up into the emergency department with nausea and vomiting that is uncontrolled and continues to have headache. She had good relief with her headache from her prior visit here earlier today and from a visit earlier than that on the same day. This is her third visit in less than 24 hours and today we performed a CT scan of the head without contrast and there are no acute findings. The patient was treated today with 4 mg of morphine and 4 mg of Zofran. She had resolution of her nausea with that and we gave her another 4 mg of morphine. This worked quite well and the patient states that now she feels better than she has in the past 2 days she feels ready to go home. We discussed again her stresses and she tells me know there is nothing different in my life everything is going fine. When we talked about this in more detail it was obvious she does have a stress with one of her special needs daughters having met someone online going to the [place] to visit them coming back in 3 days and then going back again. That daughter is now living at [facility]. She calls this an adult temper tantrum. As we are talking about this she does realize that she has significant stress associated with this particular child at this time. Departure - Departure Disposition: 01 Home, Self Care Clinical Impression: Stress reaction Migraine Qualifiers: Migraine type: without aura Status migrainosus presence: without status migrainosus Intractability: not intractable Qualified Code(s): G43.009 - Migraine without aura, not intractable, without status migrainosus Condition: Stable Instructions: ED Stress React, ED Headache Migraine Follow-Up: [facility] [Provider Group] Comments: Aubreyinda, this looks like a bad headache day for you, more than you have had before. We have done a CT scan of your head today which does not demonstrate any abnormality. The expectation is that your headache resolves and you a can go about your way. I have given you some additional instructions on stress reaction. Do not forget to fill your prescription for Reglan
[2022-09-10 06:48] VITALS: BP 124/79
--- NOTE | 2022-09-10 08:01 | CT Report ---
PROCEDURE: HEAD WO INDICATIONS: persistent severe headache. TECHNIQUE: Noncontrast 4.5 mm thick angled axial sections acquired from the foramen magnum to the vertex. For r adiation dose reduction, the following was used: automated exposure control, adjustment of mA and/or kV according to patient size. COMPARISON: CT head without, 06/28/2020. FINDINGS: Image quality: Excellent. CSF spaces: Basal cisterns are patent. No extra-axial fluid collections. Ventricles are normal in size and shape. Brain: No midline shift. No intracranial masses or hemorrhage. Mari-white matter interface is norm al. Skull and face: Calvarium and visualized facial bones are intact, without suspicious lesions. Sinuses: Visualized sinuses and mastoids are clear. IMPRESSION: No acute intracranial abnormality. No significant discrepancy with the preliminary interpretation. Reviewed by: Viktor Rose MD on 09/10/2022 8:00 AM PDT Approved by: Viktor Rose MD on 09/10/2022 8:00 AM PDT Station ID: [id number]
== END 2022-09-10 06:48 | disposition home or self-care (01) ==
LOC: ED 05:12
DX: F43.9 Reaction to severe stress, unspecified (principal); G43.009 Migraine without aura, not intractable, without status migrainosus
CPT/HCPCS: 36415; 96374; 96376; 99284

== ENCOUNTER 2022-09-10 22:24 | Emergency (ER) | payer OTHER, MEDICAID ==
[2022-09-10] MEDS ORDERED: SODIUM CHLORIDE 0.9% 1,000 ML IV STA (23:09)
[2022-09-10] MEDS ORDERED: MORPHINE 10 MG/ML VIAL IVP STA (23:09)
[2022-09-10] MEDS ORDERED: METOCLOPRAMIDE 10 MG/2 ML VIAL IVP STA (23:09)
[2022-09-10] MEDS ORDERED: diphenhydrAMINE INJ 50 MG/ML VIAL IVP STA (23:09)
[2022-09-10 23:35] LABS: BASOPHILS # (AUTO) 0.1 10^3/uL (0.0-0.1); BASOPHILS % (AUTO) 0.7 %; EOSINOPHILS # (AUTO) 0.1 10^3/uL (0.0-0.7); EOSINOPHILS % (AUTO) 0.8 %; HCT - HEMATOCRIT 47.4 % (37.0-47.0); HGB - HEMOGLOBIN 15.1 g/dL (12.0-16.0); LYMPHOCYTES # (AUTO) 3.3 10^3/uL (1.5-3.5); LYMPHOCYTES % (AUTO) 32.7 %; MEAN CORPUSCULAR HEMOGLOBIN 29.8 pg (27.0-31.0); MEAN CORPUSCULAR HGB CONC 31.9 g/dL (32.0-36.0); MEAN CORPUSCULAR VOLUME 93.7 fL (81.0-99.0); MEAN PLATELET VOLUME 11.5 fL (7.9-10.8); MONOCYTES # (AUTO) 0.6 10^3/uL (0.0-1.0); MONOCYTES % (AUTO) 5.7 %; NEUTROPHILS % (AUTO) 59.9 %; PLT - PLATELET COUNT 233 10^3/uL (130-450); RED BLOOD COUNT 5.06 10^6/uL (4.20-5.40); RED CELL DISTRIBUTION WIDTH 15.2 % (12.0-15.0)
--- NOTE | 2022-09-10 23:38 | ED Physician Documentation ---
PD HPI HEADACHE - Stated complaint Stated Complaint: V/N/HEAD PX - Chief complaint Chief Complaint: Heent - History obtained from History obtained from: Patient - History of Present Illness Timing - onset: Enter time ([birth year]29), Today Timing - onset during: Rest Timing - duration: Hours Timing - details: Abrupt onset, Still present Location: Front Quality: Throbbing Associated symptoms: Nausea, Vomiting. No: Fever, Stiff neck, Weakness, Numbnes s, Syncope, Seizure, Eye pain Improved by: Rest, Dark room, Quiet, Meds Worsened by: Light, Noise, Moving Similar symptoms before: Diagnosis (migraine) Recently seen: Emergency Dept (3 visits yesterday for migraine) - Additional information Additional information: Crystal Gallagher is a 41-year-old female with a history of migraine and she has had a recent increase in her migraine symptoms. In June she had a headache requiring a second trip to the emergency department a day or 2 later. Today she is in here for the fourth visit in the past day and a half. She was into the emergency department 3 times yesterday. She states that the final visit yest erday with the morphine being given she felt that she had more rapid relief of her headache and she felt that it lasted longer. Today she was on the cammode when her headache started and then she took a nap and when she awoke she again went to the bathroom and on initiation of urination she developed acute throbbing headache. Review of Systems Constitutional: denies: Fever, Chills Eyes: reports: Photophobia. denies: Decreased vision Ears: denies: Ear pain Nose: denies: Rhinorrhea / runny nose, Congestion Throat: denies: Sore throat Cardiac: denies: Chest pain / pressure, Palpitations Respiratory: reports: Cough (smoker similar to always). denies: Dyspnea GI: reports: Nausea, Vomiting. denies: Abdominal Pain, Constipation, Diarrhea : denies: Dysuria, Frequency Skin: denies: Rash Musculoskeletal: denies: Neck pain, Back pain, Extremity pain Neurologic: reports: Headache. denies: Generalized weakness, Focal weakness, Numbness, Head injury, LOC PD PAST MEDICAL HISTORY - Past Medical History Cardiovascular: None Respiratory: None Neuro: Migraines Endocrine/Autoimmune: None GI: None SHIP'S OFFICER: None : Other HEENT: None Psych: None Musculoskeletal: Chronic back pain Derm: None - Past Surgical History Past Surgical History: Yes General: Appendectomy /SHIP'S OFFICER: Tubal ligation, Other - Present Medications Home Medications: Ambulatory Orders Medication Instructions Recorded Confirmed Ondansetron Odt [Zofran Odt] 4 mg TL Q6H PRN #10 tablet 08/25/20 Oxycodone HCl/Acetaminophen 1 - 2 each PO Q6H PRN #14 tablet 01/02/21 [Percocet 5-325 mg Tablet] Apixaban [Eliquis] 5 mg PO BID #74 tablet 02/10/21 HYDROcod/ACETAM 5/325 [[place] 5/325] 1 - 2 tablet PO Q6H PRN #14 tablet 12/21/21 Ondansetron Odt [Zofran] 4 mg TL Q6H PRN #10 tablet 02/18/22 cephALEXin [Keflex] 500 mg PO QID 7 Days #28 cap 02/18/22 Butalb/Acetam/Caff 50/325/40 1 each PO Q4-6H PRN #20 tablet 06/28/22 [Fioricet] Metoclopramide [Reglan] 10 mg PO Q6H PRN #20 tablet 06/28/22 Metoclopramide [Reglan] 10 mg PO Q6H PRN #30 tablet 09/09/22 - Allergies Allergies/Adverse Reactions: Allergies Allergy/AdvReac Type Severity Reaction Status Date / Time sumatriptan [From Imitrex] Allergy Hives Verified 09/10/22 05:29 - Social History Does the pt smoke?: No Smoking Status: Never smoker Does the pt drink ETOH?: Yes Does the pt have substance abuse?: No - Immunizations Immunizations are current?: Yes - POLST Patient has POLST: No PD ED PE NORMAL - Vitals Vital signs reviewed: Yes - General General: Alert and oriented X 3, Well developed/nourished, Other (hiding under a blanket moaning in pain ) - HEENT HEENT: Atraumatic, PERRL, EOMI, Ears normal, Other (dry mucous membranes ) - Neck Neck: Supple, no meningeal sign, No bony TTP - Cardiac Cardiac: RRR, No murmur - Respiratory Respiratory: No respiratory distress, Clear bilaterally - Abdomen Abdomen: Normal bowel sounds, Soft, Non tender, Non distended, No organomegaly - Back Back: No CVA TTP, No spinal TTP - Derm Derm: Normal color, Warm and dry, No rash - Extremities Extremities: No deformity, No edema - Neuro Neuro: Alert and oriented X 3, drier and pulverizer tender 2-12 intact, No motor deficit, No sensory deficit, Normal speech Eye Opening: Spontaneous Motor: Obeys Commands Verbal: Oriented GCS Score: 15 - Psych Psych: Normal mood, Normal affect Results - Vitals Vitals: Vital Signs - 24 hr 09/10/22 09/10/22 09/11/22 22:30 23:33 00:58 Temperature 35.5 C L Heart Rate 82 74 70 Respiratory 16 16 16 Rate Blood Pressure 154/96 H 140/98 H 132/88 H O2 Saturation 98 94 99 Oxygen O2 Source Room air - Labs Labs: Laboratory Tests 09/10/22 09/11/22 23:26 00:08 WBC 10.0 RBC 5.06 Hgb 15.1 Hct 47.4 H MCV 93.7 MCH 29.8 MCHC 31.9 L RDW 15.2 H Plt Count 233 MPV 11.5 H Neut # (Auto) 6.0 Lymph # (Auto) 3.3 [place] # (Auto) 0.6 Eos # (Auto) 0.1 Baso # (Auto) 0.1 Absolute Nucleated RBC 0.00 Nucleated RBC % 0.0 Sodium 142 Potassium 3.6 Chloride 108 Carbon Dioxide 25 Anion Gap 9.0 BUN 21 H Creatinine 0.7 Estimated GFR (MDRD) 92 Glucose 104 H Calcium 8.5 Total Bilirubin 0.5 AST 39 ALT 39 Alkaline Phosphatase 55 Total Protein 7.4 Albumin 4.0 Globulin 3.4 Albumin/Globulin Ratio 1.2 Lipase 34 PD Medical Decision Making - ED course Complexity details: reviewed old records, reviewed results, re-evaluated patient, considered differential, d/w patient Reviewed Lab Results: We reviewed a complete blood count showing a normal white blood cell count normal hemoglobin and an elevated hematocrit at 47.4 this is similar to numbers from 5 years ago. Indices are unremarkable electrolytes kidney and liver function normal. My interpretation of the elevated hematocrit is that this is likely a result of the patient's tobacco use disorder. The remainder of the laboratory values are reassuring of a benign process. ED course: 41-year-old female presents again for sudden onset severe headache. I have referred the patient to a local clinic and she is not able to get in for a follow-up until after she will be leaving to go to [place]. I have talked to the patient multiple times over the last day about her level of stress and she never mentioned getting ready to move. She did mention a special needs daughter who is living at [facility]'s house and this seems to be a source of potential stress for the patient. I suspect the plan to move may also be related. The patient does have some hypertension but it is not in a range that I believe would be resulting in frequent migraine. Today in the emergency department she is treated with 10 mg of morphine, 10 mg of Reglan, 25 mg of Benadryl and a liter of saline. With the conclusion of treatment the patient is improved. Departure - Departure Disposition: 01 Home, Self Care Clinical Impression: Migraine headache Qualifiers: Migraine type: without aura Status migrainosus presence: without status migrainosus Intractability: not intractable Qualified Code(s): G43.009 - Migraine without aura, not intractable, without status migrainosus Condition: Stable Instructions: ED Headache Migraine Follow-Up: [facility] [Provider Group] Discharge Date/Time: 09/11/22 00:59
[2022-09-11 00:35] LABS: ALBUMIN/GLOBULIN RATIO 1.2 (1.0-2.2); BILIRUBIN,TOTAL 0.5 mg/dL (0.2-1.0); CALCIUM 8.5 mg/dL (8.5-10.3); CREATININE 0.7 mg/dL (0.4-1.0); POTASSIUM 3.6 mmol/L (3.5-5.0); TOTAL PROTEIN 7.4 g/dL (6.7-8.2)
[2022-09-11 01:04] VITALS: BP 132/88
== END 2022-09-11 00:59 | disposition home or self-care (01) ==
LOC: ED 22:24
DX: G43.009 Migraine without aura, not intractable, without status migrainosus (principal); I10 Essential (primary) hypertension; F17.200 Nicotine dependence, unspecified, uncomplicated; F43.9 Reaction to severe stress, unspecified
CPT/HCPCS: 36415; 70450; 80053; 83690; 85025; 96374; 96376; 99284; J1200; J2765

== ENCOUNTER 2022-09-11 10:17 | Emergency (ER) | payer OTHER, MEDICAID ==
--- NOTE | 2022-09-11 10:21 | ED Physician Documentation ---
PD HPI HEADACHE - Stated complaint Stated Complaint: MIGRAINE,VOMITING - History obtained from History obtained from: Patient - History of Present Illness Timing - onset: How many days ago (4) Timing - onset during: Light activity Timing - duration: Days (4) Timing - details: Gradual onset (onset like typical migraine but has persisted and recurred even after imprvment in ER with meds. QUIÑONEZ returned few hours after discharge each time. Has not had this happen to this duration; has had recurrent/status for couple of days at times.), Still present, Waxing and waning Worst headache ever?: No: Worst headache ever? (similar in character and severity to usual migraines.) Quality: Throbbing, Aching, Other Associated symptoms: Nausea, Vomiting. No: Fever, Weakness, Numbness, Vision changes Contributing factors: No: Hypertension, Recent illness, Trauma Similar symptoms before: Diagnosis (migraines) Recently seen: Emergency Dept Review of Systems Constitutional: denies: Fever, Chills Eyes: reports: Photophobia. denies: Loss of vision Nose: reports: Congestion. denies: Rhinorrhea / runny nose Throat: denies: Sore throat Respiratory: denies: Cough GI: reports: Nausea, Vomiting. denies: Abdominal Pain Skin: denies: Rash, Lesions Neurologic: reports: Generalized weakness, Near syncope. denies: Focal weakness, Numbness, Syncope, Altered mental status PD PAST MEDICAL HISTORY - Past Medical History Cardiovascular: None Respiratory: None Neuro: Migraines Endocrine/Autoimmune: None GI: None FLY TIER: None : Other HEENT: None Psych: None Musculoskeletal: Chronic back pain Derm: None - Past Surgical History Past Surgical History: Yes General: Appendectomy /FLY TIER: Tubal ligation, Other - Present Medications Home Medications: Ambulatory Orders Medication Instructions Recorded Confirmed Ondansetron Odt [Zofran Odt] 4 mg TL Q6H PRN #10 tablet 08/25/20 Oxycodone HCl/Acetaminophen 1 - 2 each PO Q6H PRN #14 tablet 01/02/21 [Percocet 5-325 mg Tablet] Apixaban [Eliquis] 5 mg PO BID #74 tablet 02/10/21 HYDROcod/ACETAM 5/325 [[place] 5/325] 1 - 2 tablet PO Q6H PRN #14 tablet 12/21/21 Ondansetron Odt [Zofran] 4 mg TL Q6H PRN #10 tablet 02/18/22 cephALEXin [Keflex] 500 mg PO QID 7 Days #28 cap 02/18/22 Butalb/Acetam/Caff 50/325/40 1 each PO Q4-6H PRN #20 tablet 06/28/22 [Fioricet] Metoclopramide [Reglan] 10 mg PO Q6H PRN #20 tablet 06/28/22 Metoclopramide [Reglan] 10 mg PO Q6H PRN #30 tablet 09/09/22 - Allergies Allergies/Adverse Reactions: Allergies Allergy/AdvReac Type Severity Reaction Status Date / Time sumatriptan [From Imitrex] Allergy Hives Verified 09/11/22 10:25 - Social History Does the pt smoke?: No Smoking Status: Never smoker Does the pt drink ETOH?: Yes Does the pt have substance abuse?: No - Immunizations Immunizations are current?: Yes - POLST Patient has POLST: No PD ED PE NORMAL - Vitals Vital signs reviewed: Yes - General General: Alert and oriented X 3, Well developed/nourished, Other (appears uncomfortable and is holding blothing over her eyes to decrease light. Otherwise alert and conversant. ) - HEENT HEENT: Atraumatic - Neck Neck: Supple, no meningeal sign, No adenopathy - Cardiac Cardiac: RRR, No murmur - Respiratory Respiratory: No respiratory distress, Clear bilaterally - Derm Derm: Normal color, Warm and dry - Extremities Extremities: Normal ROM s pain, No edema, No calf tenderness / cord - Neuro Neuro: Alert and oriented X 3, respiratory technician 2-12 intact, No motor deficit, No sensory deficit, Normal speech Eye Opening: Spontaneous Motor: Obeys Commands Verbal: Oriented GCS Score: 15 Results - Vitals Vitals: Vital Signs - 24 hr 09/11/22 09/11/22 10:22 12:25 Temperature 26.4 C L Heart Rate 65 52 L Respiratory 20 16 Rate Blood Pressure 149/108 H 177/89 H O2 Saturation 97 99 Oxygen O2 Source Room air PD Medical Decision Making - ED course Complexity details: reviewed old records (4 prior ED visits over past 3 days for same. I reviewed the medications used. Initial was typical Migraine cocktail. NExt few were opioid and toradol, with Zofran. ), considered differential (The patient with status migraine over the last 3 days.), d/w patient ED course: The patient presents with typical migraine type symptoms but these have been recurrent over the last 4 days with repeat visits to the ER. She has had occasional times of rebound or recurrent headaches with 2 visits but generally they resolve with single treatments. The patient does not identify any particular difference on these headaches. No recent fevers or head cold symptoms. No head injury. No localized symptoms. She did have a CT of the head yesterday because of the recurrent visits and it was read as normal. She does state the symptoms are consistent with her typical migraine just unusual to be recurrent and prolonged. I talked with the patient and suggested we try a different combination of medicines then had been used over the last few days. She was agreeable. I had the nurses start an IV and will give a combination of Toradol with Inapsine as well as a 0.3 mg/kg infusion of ketamine over 45 minutes. She did have improvement in her headache. However she states she felt light headed and weird with the medications and not as happy with the ketamine. I do feel this is less likely to have a rebound compared to the opioid medicines of the last 2 or 3 visits. Literature would support a more sustained effect from this. The patient is having improvement in her headache and nausea. Still feeling a little lightheaded. She is feeling more comfortable enough to try going home again. She had been prescribed some antiemetics on visit a couple of days ago. She is to return if recurrent symptoms again. We did dose with Decadron steroid here today to try to reduce the chance of rebound as well. Departure - Departure Disposition: 01 Home, Self Care Clinical Impression: Migraine with status migrainosus Condition: Stable Record reviewed to determine appropriate education?: Yes Instructions: ED Headache Migraine Comments: Hopefully the combination of medications today not only will have the headache away as it currently is but will allow it to end the status migraine and not recur for awhile (back to your usual pattern of occasional migraines). Stable hydrated at home. Rest. Use the nausea medicines at home as needed. Tylenol every 4-6 hours if needed for mild headaches.
[2022-09-11] MEDS ORDERED: SODIUM CHLORIDE 0.9% 1,000 ML IV STA (10:37)
[2022-09-11] MEDS ORDERED: DEXAMETHASONE 10 MG/ML VIAL IVP STA (10:43)
[2022-09-11] MEDS ORDERED: KETAMINE (50MG/ML) 40 MG in SODIUM CHLORIDE 0.9% 100ML 100 ML IV STA (10:44)
[2022-09-11] MEDS ORDERED: DROPERIDOL 5 MG/2 ML VIAL IVP STA (10:44)
[2022-09-11] MEDS ORDERED: KETOROLAC 15 MG/ML VIAL IVP STA (10:45)
[2022-09-11] MEDS ORDERED: SODIUM CHLORIDE 0.9% IV STA (10:51)
[2022-09-11] MEDS ORDERED: KETAMINE IV STA (10:51)
[2022-09-11] MEDS ORDERED: diphenhydrAMINE INJ 50 MG/ML VIAL IVP STA (12:17)
[2022-09-11 12:48] VITALS: BP 177/89
== END 2022-09-11 13:09 | disposition home or self-care (01) ==
LOC: ED 10:17
DX: G43.901 Migraine, unspecified, not intractable, with status migrainosus (principal); Z79.01 Long term (current) use of anticoagulants
CPT/HCPCS: 96374; 96375; 99284

== ENCOUNTER 2022-09-14 22:16 | Emergency (ER) | payer OTHER, MEDICAID ==
[2022-09-14] MEDS ORDERED: DEXAMETHASONE 10 MG/ML VIAL IVP STA (22:41)
[2022-09-14] MEDS ORDERED: PROCHLORPERAZINE 10 MG/2 ML VIAL IVP STA (22:41)
[2022-09-14] MEDS ORDERED: KETOROLAC 15 MG/ML VIAL IVP STA (22:41)
[2022-09-14] MEDS ORDERED: diphenhydrAMINE INJ 50 MG/ML VIAL IVP STA (22:41)
[2022-09-14] MEDS ORDERED: HYDROmorphone 1 MG/ML CARPUJECT IVP STA (23:29)
[2022-09-14] MEDS ORDERED: SODIUM CHLORIDE 0.9% 1,000 ML IV STA (23:29)
--- NOTE | 2022-09-14 23:30 | ED Physician Documentation ---
PD HPI HEADACHE - Stated complaint Stated Complaint: VOMITTING, MIGRAINE - Chief complaint Chief Complaint: Heent - History obtained from History obtained from: Patient - Additional information Additional information: HPI from patient. Patient complains of global headache. This headache has been more or less ongoing for at least 1 week. This is her sixth visit to this emergency department in as many days. Patient says that the only prescription medication she has at home that she tries for her migraines are Fioricet and metoclopramide, neither which are working at this time. The headache is worse with light (she is photophobic), no ameliorating factors. The headache is associate with nausea and vomiting. She was driven to the emergency department by a friend le. Regarding follow-up, patient says she cannot get into see her primary care provider nor a neurologist "until after I leave the state". In clarifying, she says she is planning to move out of state in October and that she was unable to arrange an appointment with her doctors in that timeframe remaining before October. 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 : Other HEENT: None Psych: None Musculoskeletal: Chronic back pain Derm: None - Past Surgical History Past Surgical History: Yes General: Appendectomy /PROGRAM ENGAGEMENT DIRECTOR: Tubal ligation, Other - Present Medications Home Medications: Ambulatory Orders Medication Instructions Recorded Confirmed Ondansetron Odt [Zofran Odt] 4 mg TL Q6H PRN #10 tablet 08/25/20 Oxycodone HCl/Acetaminophen 1 - 2 each PO Q6H PRN #14 tablet 01/02/21 [Percocet 5-325 mg Tablet] Apixaban [Eliquis] 5 mg PO BID #74 tablet 02/10/21 HYDROcod/ACETAM 5/325 [[place] 5/325] 1 - 2 tablet PO Q6H PRN #14 tablet 12/21/21 Ondansetron Odt [Zofran] 4 mg TL Q6H PRN #10 tablet 02/18/22 cephALEXin [Keflex] 500 mg PO QID 7 Days #28 cap 02/18/22 Butalb/Acetam/Caff 50/325/40 1 each PO Q4-6H PRN #20 tablet 06/28/22 [Fioricet] Metoclopramide [Reglan] 10 mg PO Q6H PRN #20 tablet 06/28/22 Metoclopramide [Reglan] 10 mg PO Q6H PRN #30 tablet 09/09/22 HYDROcod/ACETAM 5/325 [[place] 5/325] 1 - 2 tab PO Q6H PRN #10 tablet 09/15/22 HYDROcod/ACETAM 5/325 [[place] 5/325] 1 ea PO Q6H PRN #18 tablet 09/15/22 Metoclopramide [Reglan] 10 mg PO Q6H PRN #20 tablet 09/15/22 Topiramate [Topamax] 25 mg PO BID #40 tablet 09/15/22 dexAMETHasone [Decadron] 4 mg PO DAILY #7 tablet 09/15/22 - Allergies Allergies/Adverse Reactions: Allergies Allergy/AdvReac Type Severity Reaction Status Date / Time sumatriptan [From Imitrex] Allergy Hives Verified 09/15/22 15:28 - Social History Does the pt smoke?: No Smoking Status: Never smoker Does the pt drink ETOH?: Yes Does the pt have substance abuse?: No - Immunizations Immunizations are current?: Yes - POLST Patient has POLST: No PD ED PE NORMAL - Vitals Vital signs reviewed: Yes - General General: Well developed/nourished, Other (asleep when I first enter room (has already received medications ordered by my colleague), awakens to voice but only when combined with gentle tactile. speech slightly slurred; she puts blanket over her eyes. she is oriented x 3) - HEENT HEENT: PERRL, EOMI, Moist mucous membranes - Neck Neck: Supple, no meningeal sign - Cardiac Cardiac: RRR, No murmur - Respiratory Respiratory: No respiratory distress, Clear bilaterally - Abdomen Abdomen: Soft, Non tender - Neuro Neuro: Alert and oriented X 3, wood stock blank handler 2-12 intact, No motor deficit, No sensory deficit, Normal speech Eye Opening: To Voice Motor: Obeys Commands Verbal: Oriented GCS Score: 14 Results - Vitals Vitals: Vital Signs - 24 hr 09/15/22 09/15/22 09/15/22 05:25 07:00 09:00 Temperature 36.6 C Heart Rate 50 L 44 L 80 Respiratory 16 16 16 Rate Blood Pressure 112/85 H 123/76 125/82 H O2 Saturation 94 95 98 09/15/22 09:41 Temperature 37.1 C Heart Rate 73 Respiratory 20 Rate Blood Pressure 142/92 H O2 Saturation 97 Oxygen O2 Source Room air - Labs Labs: Laboratory Tests 09/15/22 09/15/22 07:58 07:58 WBC 9.5 RBC 5.24 Hgb 15.9 Hct 47.8 H MCV 91.2 MCH 30.3 MCHC 33.3 RDW 14.9 Plt Count 264 MPV 11.7 H Neut # (Auto) 8.6 H Lymph # (Auto) 0.8 L [place] # (Auto) 0.1 Eos # (Auto) 0.0 Baso # (Auto) 0.0 Absolute Nucleated RBC 0.00 Nucleated RBC % 0.0 Sodium 141 Potassium 4.2 Chloride 108 Carbon Dioxide 25 Anion Gap 8.0 BUN 12 Creatinine 0.7 Estimated GFR (MDRD) 92 Glucose 163 H Calcium 9.0 Total Bilirubin 0.7 AST 23 ALT 52 Alkaline Phosphatase 63 Total Protein 7.5 Albumin 3.8 Globulin 3.7 Albumin/Globulin Ratio 1.0 Lipase 23 PD Medical Decision Making - ED course Complexity details: reviewed old records, considered differential, d/w patient ED course: Patient presents with headache that she says is consistent with her long history of migraine headaches. This is her sixth visit to this emergency department in 6 days. Records indicate that she seems to have excellent relief by the end of each encounter, only to return, sometimes the same day, with recurrence of the same migraine headache. Over these past 6 days, some visits included no testing, but she has also had a visit with a CT head without remarkable findings as well as basic blood work (CBC, ear abdominal panel) without remarkable findings. Because this is yet again, per patient, one of her typical low more severe migraine headaches, no tests were performed tonight. The focus tonight is on symptom control. She is given IV normal saline 1 L, Decadron, Benadryl, Toradol, Dilaudid, and prochlorperazine. On reevaluation, she reports minimal improvement. 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 None of these had adequate and/or lasting effect. Care of patient signed out to Dr. Rueda at end of my shift pending disposition. Departure - Departure Disposition: 01 Home, Self Care Clinical Impression: Migraine Instructions: ED Headache Migraine Prescriptions: dexAMETHasone [Decadron] 4 mg PO DAILY #7 tablet HYDROcod/ACETAM 5/325 [[place] 5/325] 1 ea PO Q6H PRN #18 tablet PRN Reason: Pain Metoclopramide [Reglan] 10 mg PO Q6H PRN #20 tablet PRN Reason: Nausea / Vomiting Topiramate [Topamax] 25 mg PO BID #40 tablet Comments: Continue with the Reglan/metoclopramide as needed for nausea. Use Tylenol 650 mg 4 times daily regularly for headache. Alternatively hydrocodone/acetaminophen if needed for worst headache. To try to reduce subsequent headaches over the next several days, I would add Decadron steroid daily for the next week. Also for subsequent headaches (it may not help enough over the next few days but targeting headaches down the future) would be to start antimigraine type medication daily. Topamax/topiramate is commonly used by the neurologist for this. It starts at 25 mg daily for a week and then can increase to twice daily after that. We would see how that does for subsequent headache pattern and it may need to be increased along the way. I sent your prescription to [facility] pharmacy. Return to the ER as needed. Discharge Date/Time: 09/15/22 09:55
[2022-09-15] MEDS ORDERED: HYDROmorphone 1 MG/ML CARPUJECT IVP STA ×3 (01:13→05:27)
[2022-09-15] MEDS ORDERED: LORazepam 2 MG/ML VIAL IVP STA (01:25)
[2022-09-15] MEDS ORDERED: KETAMINE (50MG/ML) 40 MG in SODIUM CHLORIDE 0.9% 100ML 100 ML IV STA (01:25)
[2022-09-15] MEDS ORDERED: KETAMINE 500 MG/10 ML VIAL ONE (01:47)
[2022-09-15] MEDS ORDERED: DROPERIDOL 5 MG/2 ML VIAL IVP STA (05:27)
[2022-09-15] MEDS ORDERED: KETOROLAC 30 MG/ML VIAL IVP STA (07:46)
[2022-09-15] MEDS ORDERED: SODIUM CHLORIDE 0.9% 1,000 ML IV STA (07:46)
[2022-09-15 08:02] LABS: BASOPHILS % (AUTO) 0.1 %; HCT - HEMATOCRIT 47.8 % (37.0-47.0); HGB - HEMOGLOBIN 15.9 g/dL (12.0-16.0); LYMPHOCYTES # (AUTO) 0.8 10^3/uL (1.5-3.5); LYMPHOCYTES % (AUTO) 8.6 %; MEAN CORPUSCULAR HEMOGLOBIN 30.3 pg (27.0-31.0); MEAN CORPUSCULAR HGB CONC 33.3 g/dL (32.0-36.0); MEAN CORPUSCULAR VOLUME 91.2 fL (81.0-99.0); MEAN PLATELET VOLUME 11.7 fL (7.9-10.8); MONOCYTES # (AUTO) 0.1 10^3/uL (0.0-1.0); MONOCYTES % (AUTO) 0.8 %; NEUTROPHILS # (AUTO) 8.6 10^3/uL (1.5-6.6); NEUTROPHILS % (AUTO) 90.3 %; PLT - PLATELET COUNT 264 10^3/uL (130-450); RED BLOOD COUNT 5.24 10^6/uL (4.20-5.40); RED CELL DISTRIBUTION WIDTH 14.9 % (12.0-15.0); WHITE BLOOD COUNT 9.5 x10^3/uL (4.8-10.8)
[2022-09-15 08:14] LABS: ALBUMIN 3.8 g/dL (3.2-5.5); BILIRUBIN,TOTAL 0.7 mg/dL (0.2-1.0); CREATININE 0.7 mg/dL (0.4-1.0); POTASSIUM 4.2 mmol/L (3.5-5.0); TOTAL PROTEIN 7.5 g/dL (6.7-8.2)
[2022-09-15 09:46] VITALS: BP 142/92
--- NOTE | 2022-09-15 13:29 | ED Physician Documentation ---
ED Addendum - Addendum Addendum: 09/15/22 13:26 Care of the patient was assumed after change of shift. She had received some Toradol dose shortly before I saw her. She was given IV fluids. She had had multiple doses of medications through the night and still with some headache. At the time I talked with her she states she was still having some headache but no vomiting. Still some light sensitive. However she needed to be doing some activities with her children and so needed to be going home. Dr. Cottrell had suggested possible observation for status migraine. She said she was not able to do that and would return if needed. She has had multiple visits over the last week with persistent and recurrent headache. She states they have all felt like her usual migraines. On recent visit she had had a CT as well as blood test. No repeat imaging done at this visit. She does not have a primary care nor neurologist. She has appointments potentially for them in late October but she is moving out of town to another state early October. She is amenable to trying other regimens for the migraines and given the recurrences recently to start a daily prophylactic medicine as well. She is aware or a informed that this would not necessarily work right away as it takes a week or so sometimes for those medicines but will try to help subsequent headache pattern. She is discharged in the department in stable condition. Wrote prescriptions for 7-day oral course of Decadron along with some Reglan nausea medicine for home and to start at a 25 mg topiramate dosing for the next week and then to increase to twice daily. Disposition: The patient discharged home in stable condition. Diagnoses: 1. Status migraine, intractable
== END 2022-09-15 09:55 | disposition home or self-care (01) ==
LOC: ED 22:16
DX: G43.911 Migraine, unspecified, intractable, with status migrainosus (principal)
CPT/HCPCS: 36415; 80053; 83690; 85025; 96365; 96375; 96376; 99284

== ENCOUNTER 2022-09-15 15:21 | Emergency (ER) | payer OTHER, MEDICAID ==
[2022-09-15 15:31] VITALS: BP 162/79
[2022-09-15] MEDS ORDERED: KETOROLAC 15 MG/ML VIAL IVP STA (15:38)
[2022-09-15] MEDS ORDERED: diphenhydrAMINE INJ 50 MG/ML VIAL IVP STA (15:38)
[2022-09-15] MEDS ORDERED: SODIUM CHLORIDE 0.9% 1,000 ML IV STA (15:38)
[2022-09-15] MEDS ORDERED: PROPOFOL 200 MG/20 ML VIAL IVP STA (15:38)
[2022-09-15] MEDS ORDERED: METOCLOPRAMIDE 10 MG/2 ML VIAL IVP STA (15:38)
--- NOTE | 2022-09-15 15:39 | ED Physician Documentation ---
History of Present Illness - Stated complaint Stated Complaint: MIGRAINE/VOMIT/DIZZY - Chief complaint Chief Complaint: General - History obtained from History obtained from: Patient - Additonal information Additional information: 41-year-old woman with history of migraines has had frequent emergency department visits in her life for migraines, usually averaging maybe once a month or a couple times a year. Over the last week this is her seventh visit for a headache. It is typical for her migraines. Right retro-orbital pain spreading out and then a lot of pain in the neck without neck stiffness as well. She has been vomiting and has severe light sensitivity. No fevers. Over the course of her last 7 visits she is got multiple medications including narcotics, dopamine antagonists and ketamine twice. She did not like the ketamine the first time but it did help her headache. The second time she got the ketamine she said it did not feel like anything happened. 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: Tubal ligation, Other - Present Medications Home Medications: Ambulatory Orders Medication Instructions Recorded Confirmed Ondansetron Odt [Zofran Odt] 4 mg TL Q6H PRN #10 tablet 08/25/20 Oxycodone HCl/Acetaminophen 1 - 2 each PO Q6H PRN #14 tablet 01/02/21 [Percocet 5-325 mg Tablet] Apixaban [Eliquis] 5 mg PO BID #74 tablet 02/10/21 HYDROcod/ACETAM 5/325 [[place]udley 5/325] 1 - 2 tablet PO Q6H PRN #14 tablet 12/21/21 Ondansetron Odt [Zofran] 4 mg TL Q6H PRN #10 tablet 02/18/22 cephALEXin [Keflex] 500 mg PO QID 7 Days #28 cap 02/18/22 Butalb/Acetam/Caff 50/325/40 1 each PO Q4-6H PRN #20 tablet 06/28/22 [Fioricet] Metoclopramide [Reglan] 10 mg PO Q6H PRN #20 tablet 06/28/22 Metoclopramide [Reglan] 10 mg PO Q6H PRN #30 tablet 09/09/22 HYDROcod/ACETAM 5/325 [[place]udley 5/325] 1 - 2 tab PO Q6H PRN #10 tablet 09/15/22 HYDROcod/ACETAM 5/325 [[place]ley 5/325] 1 ea PO Q6H PRN #18 tablet 09/15/22 Metoclopramide [Reglan] 10 mg PO Q6H PRN #20 tablet 09/15/22 Topiramate [Topamax] 25 mg PO BID #40 tablet 09/15/22 dexAMETHasone [Decadron] 4 mg PO DAILY #7 tablet 09/15/22 - Allergies Allergies/Adverse Reactions: Allergies Allergy/AdvReac Type Severity Reaction Status Date / Time sumatriptan [From Imitrex] Allergy Hives Verified 09/15/22 15:28 - Social History Does the pt smoke?: No Smoking Status: Never smoker Does the pt drink ETOH?: Yes Does the pt have substance abuse?: No - Immunizations Immunizations are current?: Yes - POLST Patient has POLST: No PD ED PE NORMAL - Vitals Vital signs reviewed: Yes - General General: Alert and oriented X 3, Other (Uncomfortable and photophobic) - Neck Neck: Supple, no meningeal sign, No bony TTP Results - Vitals Vitals: Vital Signs - 24 hr 09/15/22 15:26 Temperature 36.6 C Heart Rate 95 Respiratory 16 Rate Blood Pressure 162/79 H O2 Saturation 97 Oxygen O2 Source Room air PD Medical Decision Making - ED course ED course: 41-year-old woman with status migrainosus presents for her seventh visit in as many days for same. My headache the headache is gradual in onset and similar to prior headaches. As such I doubt subarachnoid hemorrhage. There are no infectious symptoms such as fever or stiff neck to make me suspect meningitis. No carbon monoxide exposure by history. She was initially administered 10 mg of metoclopramide prochlorperazine, 25 mg of Benadryl and 15 mg of Toradol IV. Then after doing quite a bit of research on status migrainosus and what we have already tried, we went ahead and gave her a total of 120 mg of IV propofol in divided doses. (see for example [facility]g Med. 2013 Jan; 14(6): [id number]) While she was anesthetized with the propofol I also performed bilateral occipital nerve blocks with about 4 mL per side of lidocaine with epinephrine. After the above interventions she was feeling much better and requested discharge. Departure - Departure Disposition: 01 Home, Self Care Clinical Impression: Migraine with status migrainosus Qualifiers: Migraine type: unspecified Intractability: not intractable Qualified Code(s): G43.901 - Migraine, unspecified, not intractable, with status migrainosus Condition: Good Record reviewed to determine appropriate education?: Yes Instructions: ED Headache Migraine Prescriptions: HYDROcod/ACETAM 5/325 [Dudley 5/325] 1 - 2 tab PO Q6H PRN #10 tablet PRN Reason: Pain Comments: Follow-up with the migraine specialist as scheduled, preferably calling their office on Saturday to see if you can be put on a wait list or something of that ilk. Return if worse. Note for your records that what seemed to work today was a usual migraine cocktail composed of prochlorperazine, Benadryl, and Toradol but then divided doses of propofol totaling 120 mg and bilateral occipital nerve blocks with lidocaine.
[2022-09-15] MEDS ORDERED: LIDOCAINE 1%-EPI 1:100000 20 ML MDV SUBQ STA (15:41)
== END 2022-09-15 16:42 | disposition home or self-care (01) ==
LOC: ED 15:21
DX: G43.901 Migraine, unspecified, not intractable, with status migrainosus (principal); G43.911 Migraine, unspecified, intractable, with status migrainosus
CPT/HCPCS: 36415; 64405; 80053; 83690; 85025; 96365; 96374; 96375; 96376; 99284; 99285; J1170; J1200; J2060; J2765

== ENCOUNTER 2022-09-16 05:01 | Emergency (ER) | payer OTHER, MEDICAID ==
[2022-09-16] MEDS ORDERED: KETOROLAC 15 MG/ML VIAL IVP STA (05:31)
[2022-09-16] MEDS ORDERED: diphenhydrAMINE INJ 50 MG/ML VIAL IVP STA (05:32)
[2022-09-16] MEDS ORDERED: METOCLOPRAMIDE 10 MG/2 ML VIAL IVP STA (05:32)
[2022-09-16] MEDS ORDERED: SODIUM CHLORIDE 0.9% 1,000 ML IV STA ×2 (05:32→07:03)
--- NOTE | 2022-09-16 05:48 | ED Physician Documentation ---
PD HPI HEADACHE - Stated complaint Stated Complaint: MIRGRAIN/VOMITING - Chief complaint Chief Complaint: Heent - History obtained from History obtained from: Patient - Additional information Additional information: Patient is a 41-year-old female with a history of migraines presenting for evaluation of a migraine that woke her up from her sleep around 4:00 this morning. She has had frequent emergency departments over the past 1 week for migraines.This presentation is her eighth visit to the emergency department since September 09 for the same. Patient states that her migraine this morning is typical for her migraines. She states that it is behind her right eye. She reports having nausea and light sensitivity. No fevers. She has had numerous medications over the past week including repeated doses of Decadron, ketamine, narcotics. On the most recent visit she received propofol and occipital Nerve blocks. She states that this gave her some relief but her symptoms have come back. She does not currently have a neurologist or PCP. As an outpatient she had only tried sumatriptan in the past but this did not help her. She was given a prescription for Topamax from the emergency department but has not been able to fill this. She was previously on a blood thinner for DVT but is not currently on 1.She denies that this is the worst headache that she has ever had. She does report having increased stressors in her life recently including with one of her children as well as with an upcoming move. She has had recent imaging with a CT scan of her brain as well as labs twice in the past week all without any significant abnormalities. 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: Tubal ligation, Other - Present Medications Home Medications: Ambulatory Orders Medication Instructions Recorded Confirmed Ondansetron Odt [Zofran Odt] 4 mg TL Q6H PRN #10 tablet 08/25/20 Oxycodone HCl/Acetaminophen 1 - 2 each PO Q6H PRN #14 tablet 01/02/21 [Percocet 5-325 mg Tablet] Apixaban [Eliquis] 5 mg PO BID #74 tablet 02/10/21 HYDROcod/ACETAM 5/325 [[place] 5/325] 1 - 2 tablet PO Q6H PRN #14 tablet 12/21/21 Ondansetron Odt [Zofran] 4 mg TL Q6H PRN #10 tablet 02/18/22 cephALEXin [Keflex] 500 mg PO QID 7 Days #28 cap 02/18/22 Butalb/Acetam/Caff 50/325/40 1 each PO Q4-6H PRN #20 tablet 06/28/22 [Fioricet] Metoclopramide [Reglan] 10 mg PO Q6H PRN #20 tablet 06/28/22 Metoclopramide [Reglan] 10 mg PO Q6H PRN #30 tablet 09/09/22 HYDROcod/ACETAM 5/325 [[place] 5/325] 1 - 2 tab PO Q6H PRN #10 tablet 09/15/22 HYDROcod/ACETAM 5/325 [[place] 5/325] 1 ea PO Q6H PRN #18 tablet 09/15/22 Metoclopramide [Reglan] 10 mg PO Q6H PRN #20 tablet 09/15/22 Topiramate [Topamax] 25 mg PO BID #40 tablet 09/15/22 dexAMETHasone [Decadron] 4 mg PO DAILY #7 tablet 09/15/22 - Allergies Allergies/Adverse Reactions: Allergies Allergy/AdvReac Type Severity Reaction Status Date / Time sumatriptan [From Imitrex] Allergy Hives Verified 09/16/22 05:14 - Social History Does the pt smoke?: No Smoking Status: Never smoker Does the pt drink ETOH?: Yes Does the pt have substance abuse?: No - Immunizations Immunizations are current?: Yes - POLST Patient has POLST: No PD ED PE NORMAL - General General: Alert and oriented X 3, Well developed/nourished - HEENT HEENT: Atraumatic, PERRL, EOMI, Moist mucous membranes, Pharynx benign - Neck Neck: Supple, no meningeal sign, No bony TTP - Cardiac Cardiac: RRR, No murmur - Respiratory Respiratory: No respiratory distress, Clear bilaterally - Derm Derm: Warm and dry - Extremities Extremities: No calf tenderness / cord - Neuro Neuro: Alert and oriented X 3, No motor deficit, Normal speech Results - Vitals Vitals: Vital Signs - 24 hr 09/16/22 09/16/22 09/16/22 05:11 05:53 06:19 Temperature 36.6 C Heart Rate 69 64 60 Respiratory 71 H 16 13 Rate Blood Pressure 131/105 H 147/84 H 127/78 O2 Saturation 96 96 98 09/16/22 08:23 Temperature Heart Rate 54 L Respiratory 18 Rate Blood Pressure 128/82 H O2 Saturation 94 Oxygen O2 Source Room air PD Medical Decision Making - ED course Complexity details: re-evaluated patient ED course: Patient is a 41-year-old female presenting for evaluation of a migraine headache. She has had numerous recent ED visits for the same presentation. She denies that this is the worst headache of her life. She has no meningismus on exam to suggest meningitis or subarachnoid hemorrhage. Her symptoms have been ongoing x 1 week without worsening. She has no focal deficits and was ambulatory into the ED. She has had recent CT brain as well as labs without any revealing abnormalities.It is unclear which medications or what combination of medications has helped. She has current significant life stressors which may be a contributing factor. An IV was placed and patient was given IV fluids, Toradol, Reglan, Benadryl. She was additionally given a dose of IV Dilaudid which was repeated with additional fluids. Patient was signed out to Dr. Hutton at shift change pending a re evaluation. Departure - Departure Disposition: 01 Home, Self Care Clinical Impression: Headache Condition: Stable Instructions: ED Cephalgia Unspecified Comments: You have been seen 8 times in the last 5 days for your headaches and have had not only extensive treatment with a wide assortment of medications, but you have also had extensive testing to rule out any more serious cause of your headaches. At this point in time, it is not clear why you continue to have headaches and why the need for treatment in the emergency department versus home continues to arise. It is very important that you establish with outpatient doctors and you need to make an appointment immediately to follow-up in primary care, even if the appointment is not available immediately. We will not continue to give you narcotic pain medication in the emergency department for this ongoing and chronic situation. If you present to the emergency department again, you will need to have a lumbar puncture/spinal tap for evaluation of your cerebrospinal fluid. While it is quite certain that you do not have a bacterial meningitis, which is usually deadly within hours to a day or two, a viral meningitis can sometimes cause a headache that lasts for couple of weeks and does not seem to respond to much of anything. This, like any viral illness, simply has to go away on its own and there is no specific treatment for it. However, given the lack of fever or other signs of illness, even this scenario is less likely. If you do need to present to hospital again, you are best off going to one where there is a neurologist that can be consulted and regard to your case. We do not have neurology available here and are not able to provide this service for you, which would be the next step in your evaluation. Discharge Date/Time: 09/16/22 08:25
[2022-09-16] MEDS ORDERED: HYDROmorphone 1 MG/ML CARPUJECT IVP STA ×2 (06:27→07:03)
[2022-09-16 08:29] VITALS: BP 128/82
--- NOTE | 2022-09-16 08:35 | ED Physician Documentation ---
ED Addendum - Addendum Addendum: 09/16/22 08:22 The patient was signed out to me at change of shift by Dr. Billingsley, pending symptomatic relief of her ongoing headaches. The patient has been seen now for the eighth time in 5 days in our emergency department and each time, has complained of a migraine headache. She stated today is not the worst of her life but she states that coming to the ED to get treated is the only place where she actually sometimes feels better. Patient has denied vomiting since discharge yesterday and has denied fevers. I have reviewed the patient's extensive records over the last week and found that she has received not only a wide variety of medications, including some atypical therapies yesterday with propofol and occipital blocks, but also exhaustive testing to rule out emergent conditions. She has received narcotic pain medications repeatedly and multiple prescriptions for various agents. She states she has not filled her prescriptions because "her insurance will not let her". The patient has denied any new symptoms today and no new factors to consider, such as trauma. The patient has been tested widely with laboratory studies and imaging. On evaluation, the patient is laying in bed with her eyes closed. She does not at this time appear particularly uncomfortable after 2 doses of Dilaudid and a liter and a half of normal saline. I have had a long and renate talk with her to the extent that we have treated her repeatedly with really no lasting improvement in symptoms, but we have also worked her up, and between the amount of time that has elapsed and the work-up that has been done, we can say with confidence at this time that there is not an emergent condition going on. I have advised the patient that the only test left to do is a lumbar puncture, which the patient is not enthusiastic about. I have advised her that if she feels the need to come to the emergency department again, that lumbar puncture will need to be done to evaluate for viral meningitis. I feel that bacterial meningitis is extremely unlikely to be a factor here, given the duration of symptoms and the lack of other infectious symptoms, and although a diagnosis of viral meningitis is unlikely to change the course of management, it would at least give an explanation as to the ongoing headaches that seem to be intractable. Even so, given the lack of other infectious symptoms, the likelihood even of this is probably low. I discussed with the patient that we will be limiting the medication she gets here if she continues to use the emergency department to manage her symptoms. Specifically, we will not be able to continue to give her narcotic pain medication from or in the ED. The patient expresses understanding. I have advised her to optimize her home medications and to make the next available appointment with primary care. The patient has stated that she is moving to [place] at the beginning of October and that no primary care clinic can see her here [place] the [place] before then. She states she is on a cancellation waiting list. She also states she cannot get the ball rolling for a primary care appointment in [place] because she does not yet have insurance. We have discussed that should the patient need to seek emergency care again, while we will see her if she comes here, she may be best served by going to a facility where neurology is available and able to be consulted if needed since we do not have that capability here and we are really out of opt ions for the most part to further evaluate or treat this patient. The patient again expresses understanding. We have discussed the usual indications for return. Final impression: 1. Intractable headache Disposition: Home in stable and improved condition.
== END 2022-09-16 08:25 | disposition home or self-care (01) ==
LOC: ED 05:01
DX: R51.9 Headache, unspecified (principal)
CPT/HCPCS: 36415; 96374; 96375; 96376; 99284; 99285; J1170; J1200; J2765

== ENCOUNTER 2022-09-20 08:20 | Emergency (ER) | payer OTHER, MEDICAID ==
--- NOTE | 2022-09-20 08:24 | ED Physician Documentation ---
PD HPI HEADACHE - Stated complaint Stated Complaint: HEAD PX - History obtained from History obtained from: Patient - History of Present Illness Timing - onset: Last night Timing - onset during: Rest Timing - duration: Hours Timing - details: Gradual onset, Still present Worst headache ever?: No: Worst headache ever? Location: Back, Left Quality: Throbbing, Aching Associated symptoms: Nausea, Vision changes (light sensitive and some blurring. No scotomata.). No: Fever, Stiff neck, Weakness, Numbness Improved by: Rest, Dark room. No: Meds Worsened by: Light, Noise Contributing factors: No: Anticoagulated, Recent illness, Trauma Similar symptoms before: Diagnosis (migraines in the past and has had persistent/recurring migraine like headaches the past 2 weeks, with multiple visits to the ER.) Recently seen: Emergency Dept. No: Clinic (she had a change in insurance with it now being [employer] that picked up coverage 3 days ago.) Review of Systems Constitutional: denies: Fever, Chills Eyes: reports: Photophobia. denies: Loss of vision, Decreased vision Nose: denies: Rhinorrhea / runny nose, Congestion Throat: denies: Sore throat Respiratory: denies: Cough Neurologic: reports: Headache. denies: Altered mental status, Head injury PD PAST MEDICAL HISTORY - Past Medical History Cardiovascular: None Respiratory: None Neuro: Migraines Endocrine/Autoimmune: None GI: None IMMUNOLOGY SPECIALIST: None : Other HEENT: None Psych: None Musculoskeletal: Chronic back pain Derm: None - Past Surgical History Past Surgical History: Yes General: Appendectomy /IMMUNOLOGY SPECIALIST: Tubal ligation, Other - Present Medications Home Medications: Ambulatory Orders Medication Instructions Recorded Confirmed Ondansetron Odt [Zofran Odt] 4 mg TL Q6H PRN #10 tablet 08/25/20 Oxycodone HCl/Acetaminophen 1 - 2 each PO Q6H PRN #14 tablet 01/02/21 [Percocet 5-325 mg Tablet] Apixaban [Eliquis] 5 mg PO BID #74 tablet 02/10/21 HYDROcod/ACETAM 5/325 [[place] 5/325] 1 - 2 tablet PO Q6H PRN #14 tablet 12/21/21 Ondansetron Odt [Zofran] 4 mg TL Q6H PRN #10 tablet 02/18/22 cephALEXin [Keflex] 500 mg PO QID 7 Days #28 cap 02/18/22 Butalb/Acetam/Caff 50/325/40 1 each PO Q4-6H PRN #20 tablet 06/28/22 [Fioricet] Metoclopramide [Reglan] 10 mg PO Q6H PRN #20 tablet 06/28/22 Metoclopramide [Reglan] 10 mg PO Q6H PRN #30 tablet 09/09/22 HYDROcod/ACETAM 5/325 [[place] 5/325] 1 - 2 tab PO Q6H PRN #10 tablet 09/15/22 HYDROcod/ACETAM 5/325 [[place] 5/325] 1 ea PO Q6H PRN #18 tablet 09/15/22 Metoclopramide [Reglan] 10 mg PO Q6H PRN #20 tablet 09/15/22 Topiramate [Topamax] 25 mg PO BID #40 tablet 09/15/22 dexAMETHasone [Decadron] 4 mg PO DAILY #7 tablet 09/15/22 Butalb/Acetam/Caff 50/325/40 1 each PO Q6H PRN #20 tablet 09/20/22 [Fioricet] Indomethacin [Indocin] 25 mg PO BIDWM #20 cap 09/20/22 lamoTRIgine [LaMICtal] 25 mg PO DAILY #20 tablet 09/20/22 - Allergies Allergies/Adverse Reactions: Allergies Allergy/AdvReac Type Severity Reaction Status Date / Time sumatriptan [From Imitrex] Allergy Hives Verified 09/16/22 05:14 - Social History Does the pt smoke?: No Smoking Status: Never smoker Does the pt drink ETOH?: Yes Does the pt have substance abuse?: No - Immunizations Immunizations are current?: Yes - POLST Patient has POLST: No PD ED PE NORMAL - Vitals Vital signs reviewed: Yes - General General: Alert and oriented X 3, Well developed/nourished, Other (appears in pain. Covering head/face with blanket to darken the room better. ) - HEENT HEENT: Atraumatic - Neck Neck: Supple, no meningeal sign, No bony TTP (has some tender spots at the occipital nerve outlet bilaterally. ), No adenopathy - Cardiac Cardiac: RRR, No murmur - Respiratory Respiratory: Clear bilaterally - Abdomen Abdomen: Soft, Non tender - Derm Derm: Normal color, Warm and dry - Extremities Extremities: Normal ROM s pain - Neuro Neuro: Alert and oriented X 3, weight control lecturer 2-12 intact, No motor deficit, No sensory deficit, Normal speech Eye Opening: Spontaneous Motor: Obeys Commands Verbal: Oriented GCS Score: 15 Results - Vitals Vitals: Vital Signs - 24 hr 09/20/22 09/20/22 09/20/22 08:31 10:41 11:45 Temperature 36.2 C L 36.6 C Heart Rate 57 L 60 75 Respiratory 18 16 13 Rate Blood Pressure 178/104 H 165/98 H 133/88 H O2 Saturation 97 98 100 Oxygen O2 Source Room air PD Medical Decision Making - ED course Complexity details: reviewed old records, re-evaluated patient (she is having improved headache with fluids/toradol/compazine and buipivocaine occipital nerve block bilaterally. fairly well improved but not fully Repeat dose of compazine helped further. ), considered differential, d/w patient, d/w sr. consultant (Ass the patient is now covered by [facility] stating this week, I thought it would now be a different follow up pattern than was trying to get into the [facility] (not til October as new patient). I talked with the [facility] physician, who arrange a follow up appt Saturday at [facility] and Neuro consult.) ED course: The patient with recurrent status migraine over the last couple of weeks. Seen multiple times in the ER. Limited outpatient follow-up as she states she has a primary care appointment not till October around which time she is moving anyway. It is recommended she could follow-up with the walk-in clinic as well in the short-term. She has had several different medication treatments tried including typical migraine "cocktail" with Toradol antiemetic fluids and Benadryl. She had been given the steroid dosings as well. These would provide temporary relief but the headache would go back later in the day or by the next day. In the past 2 weeks, she has had blood tests, head CT/CT-A, brain MRI. No acute findings. She had on several visits received antiemetic and opioid medicines with some improvement but would actually be the least lasting treatment approach. She was given a low-dose ketamine infusion on 1 visit that did help her headache quite a bit for 2 days. She was given propofol and an occipital nerve blocks on a visit about 4 days ago with cessation of her headache at the time but back again the following day. I had started the longer-term migraine prophylaxis medication of topiramate. She started it 3 days ago. She states it gives her some blurred vision and nausea after taking it. There had been less headache generally over the last 3 days but severe again today. She attributes it to the medications though she describes more other side effects per se. At this point we would try approaching with the Compazine and Toradol and fluids. If not improved well with that, I would probably opt on the ketamine 0.3 to 0.5 mg/kg dosing over 40 minutes. I did do an occipital nerve block with bupivacaine on both sides as that may have been useful the previous time. The most recent ER notes suggested the potential for lumbar puncture for diagnostic. In the note it was expressed that its likely low probability/low yield. At this point I am not feeling compelled to do an LP and I think that would likely worsen the headaches. That said I talked with the patient that and a subsequent neurology follow-up or appointments, they may very well want to do a spinal tap for other reasons to look for proteins and oligoclonal bands in neurology type of stuff. I would defer that for neurology evaluation with more specific testing that they may want. As the patient feels she is having notable side effects to the topiramate, she is sounding not inclined to continue with it. We can try changing to lamotrigine low-dose instead as another antimigraine prophylactic medication. It would still be quite nice if she were able to follow-up locally sooner with a primary care and possible neurology. Departure - Departure Disposition: 01 Home, Self Care Clinical Impression: Migraine Condition: Stable Record reviewed to determine appropriate education?: Yes Instructions: ED Headache Migraine Follow-Up: [facility] [Provider Group] Prescriptions: Butalb/Acetam/Caff 50/325/40 [Fioricet] 1 each PO Q6H PRN #20 tablet PRN Reason: Migraine Indomethacin [Indocin] 25 mg PO BIDWM #20 cap lamoTRIgine [LaMICtal] 25 mg PO DAILY #20 tablet Comments: I would have you stop the topiramate and steroid since you are getting some side effects from the topiramate and the steroids do not seem to be effective still. We can switch to indomethacin anti-inflammatory 25 mg twice daily. There are categories of daily headache that can be responsive to indomethacin NSAID in particular. 2 subsequent headaches, we can try starting at the very low-dose lamotrigine 25 mg daily. Common doses for this would be 100 to 200 mg so this is a really low starting dose. Typically is started low and then increased incrementally. We do have an appointment with [facility] at their [place] location at [address] [place] [address] in [place]. Phone number [phone]. Your appointment is with Dr. Horvath at 11:20 AM on Saturday with check-in time at 1536. I sent your prescriptions to [facility]. Discharge Date/Time: 09/20/22 11:47
[2022-09-20] MEDS ORDERED: SODIUM CHLORIDE 0.9% 1,000 ML IV STA (08:44)
[2022-09-20] MEDS ORDERED: KETOROLAC 15 MG/ML VIAL IVP STA (08:44)
[2022-09-20] MEDS ORDERED: PROCHLORPERAZINE 10 MG/2 ML VIAL IVP STA ×2 (08:44→10:22)
[2022-09-20] MEDS ORDERED: BUPIVACAINE 0.5% PF 10 ML VIAL SUBQ STA (08:45)
[2022-09-20] MEDS ORDERED: ACETAMINOPHEN 325 MG TABLET PO STA (10:21)
[2022-09-20 11:51] VITALS: BP 133/88
== END 2022-09-20 11:47 | disposition home or self-care (01) ==
LOC: ED 08:20
DX: G43.909 Migraine, unspecified, not intractable, without status migrainosus (principal); R11.0 Nausea; H53.8 Other visual disturbances; T42.6X5A Adverse effect of other antiepileptic and sedative-hypnotic drugs, initial encounter
CPT/HCPCS: 64450; 96374; 96375; 96376; 99283; 99284; A9270

== ENCOUNTER 2022-09-24 22:47 | Emergency (ER) | payer OTHER, MEDICAID ==
[2022-09-24 22:59] VITALS: BP 170/100
== END 2022-09-25 00:15 | disposition left against medical advice (07) ==
LOC: ED 22:47
DX: Z53.21 Procedure and treatment not carried out due to patient leaving prior to being seen by health care provider (principal)